=== PATIENT | female | born 1940 | race Caucasian/White ===

== ENCOUNTER → 2016-12-28 | Outpatient (CLI) | payer MEDICARE ==
[~2016-12-28] MED LIST: ALEN70TA39 PO; ATOR10 PO; ATRO17AE INH; CALC750T PO; CARV25TA PO; DIGO0.12 PO; DILT180C PO; ENOX40P SQ; FISH500C PO; FOLI1 PO; FURO1TAB93 PO; GLIP10TA6 PO; HYDR10SO PO; LISI2.5T3 PO; MAGN400T20 PO; MELA10TA PO; METF-324 PO; METH2.5 PO; MULT1TAB PO; OXYC1SOL5 PO; SPIR25TA PO; VITA-83 PO; VITA10004 PO; VITA400C28 PO; WARF5TAB PO; Z.0.OXYGEN INH; Z.0.WALKERFRONT; [UNRECOGNIZED DRUG - CODE] PO
[2016-12-28 14:12] LABS: BLOOD GAS BASE EXCESS -1.8 mmol/L (-2-2); BLOOD GAS CARBOXYHEMOGLOBIN 1.7 % (0-4); BLOOD GAS HCO3 22 mmol/L (22-26); BLOOD GAS O2 HGB SATURATION 94 % (90-100); BLOOD GAS PCO2 38 mmHg (38-42); BLOOD GAS PO2 86 mmHg (61-120); BLOOD GAS TOTAL HGB 12.8 G/DL (12.0-16.0); TEMP CORR TO 98.6
[2016-12-28 14:13] LABS: CRITICAL VALUE NO; DRAW SITE RT RADIAL; FIO2 21 %; NUMBER OF ARTERIAL PUNCTURES 1; STAT NO; ULNAR PULSE PRESENT
--- NOTE | 2016-12-31 10:16 | RSPPFT ---
DATE OF PROCEDURE: 12/28/16 COMMENTS: Spirometry shows FVC of 1.6 at 65% of predicted, FEV1 of 1.2 at 71%, FEV1/FVC ratio is normal. Flow is decreased at FEF 25, FEF 50, FEF 75 and FEF 25-75. There is no response after bronchodilator treatment. Lung volumes show residual volume is increased. TLC is normal. Diffusion capacity is mildly decreased. Flow volume loop indicates an obstructive pattern. Room air arterial blood gases show pH of 7.39, PCO2 of 38, PO2 of 86, BiCarb of 22, O2 Saturation at 94%. IMPRESSION: 1. Mild small airways obstructive lung disease. 2. No response after bronchodilator treatment. 3. Lung volumes show mild hyperinflation. 4. Mild decrease in diffusion capacity. 5. Room air arterial blood gases show normal oxygenation.
== END ==
LOC: HRSP 12:38
PROVIDERS: ATTEND Specialist
DX: J44.9 Chronic obstructive pulmonary disease, unspecified (principal)
CPT/HCPCS: 36600; 82805; 94060; 94726; 94729

== ENCOUNTER 2017-11-01 08:00 | Emergency (ER) | payer MEDICARE ==
[~2017-11-01] VITALS: Ht 160 cm; Wt 105.0 kg
[2017-11-01 08:10] VITALS: BP 161/90; PULSE 102; RESP 18; TEMP 97.9; O2SAT 96
[2017-11-01] MEDS ORDERED: DILT120T PO (08:14)
[2017-11-01] MEDS ORDERED: WARF-23 PO (08:14)
[2017-11-01] MEDS ORDERED: MAGN400T2 PO (08:14)
[2017-11-01] MEDS ORDERED: CARV25TA PO (08:14)
[2017-11-01] MEDS ORDERED: DIGO0.12 PO (08:14)
[2017-11-01] MEDS ORDERED: METF-382 PO (08:14)
[2017-11-01] MEDS ORDERED: GLIP10TA6 PO (08:14)
[2017-11-01] MEDS ORDERED: SPIR25TA PO (08:14)
--- NOTE | 2017-11-01 08:36 | PD ---
HPI Chief Complaint: Pain: Acute or Chronic Time Seen by Provider: 08:06 Travel History International Travel<30 days: No Contact w/Intl Traveler<30days: No Traveled to known affect area: No History of Present Illness HPI 77-year-old woman presents emergent from complaining of left knee pain. No injuries. States history of significant chronic bilateral lower extremity edema. She is on 2 diuretics. She states despite that she's had chronic edema , and she's had worsening pain and swelling in the left knee, and has developed a walking on it. No fevers. No recent falls or other injuries. Normally walks with a walker chronically. History Past Medical History Narrative Medical Hypertension A. fib Chronic bilateral lower extremity edema Dilation and Curettage (D&C): Yes Social History Alcohol Use: No Tobacco Use: No Allergies-Medications (Allergen,Severity, Reaction): Coded Allergies: latex (Unverified Allergy, Intermediate, RASH, 11/01/17) PT STATES THAT SHE IS ALLERGIC TO THE LATEX IN [place] AND TAPE adhesive (Unverified Adverse Reaction, Intermediate, RASH, REDNESS, ) PATIENT STATES SHE CAN HAVE PAPER TAPE WITHOUT PROBLEMS milk (Unverified Adverse Reaction, Intermediate, DIARRHEA, GAS, 11/01/17) Reported Meds & Prescriptions Reported Meds & Active Scripts Active Reported Glipizide 10 Mg Tab 15 Mg PO DAILY Take 30 minutes before a meal Warfarin 5 Mg Tab 5 Mg PO DAILY Spironolactone 25 Mg Tab 25 Mg PO DAILY Carvedilol 25 Mg Tab 25 Mg PO BID Digoxin 0.125 Mg Tab 0.125 Mg PO DAILY Metformin ER (Metformin HCl) 1,000 Mg Katy 1,000 Mg PO DAILY With evening meal Magnesium Oxide 400 Mg Tab 400 Mg PO DAILY Diltiazem (Diltiazem HCl) 120 Mg Tab 180 Mg PO BID Review of Systems Except as stated in HPI: all other systems reviewed are Neg Physical Exam Narrative GENERAL: Well appearing 72 yo woman, NAD. SKIN: Decreased skin turgor. CARDIOVASCULAR: Heart rates a little bit irregular. RESPIRATORY: No accessory muscle use. Clear to auscultation. Breath sounds equal bilaterally. GASTROINTESTINAL: Abdomen soft, non-tender, nondistended. Hepatic and splenic margins not palpable. MUSCULOSKELETAL: No obvious deformities. Significant symmetric chronic appearing edema in both lower extremities. Palpable pulses. Left knee is without any erythema or significant warmth. There is some tenderness behind the knee. She has pain with significant range of motion but is able to range the knee still. There is no micromotion tenderness or other evidence of significant intra-articular inflammation or septic arthritis. NEUROLOGICAL: Awake and alert. No obvious cranial nerve deficits. Motor grossly within normal limits. Normal speech. PSYCHIATRIC: Appropriate mood and affect; insight and judgment normal. Data Data Last Documented VS Vital Signs Date Time Temp Pulse Resp B/P (MAP) Pulse Ox O2 Delivery O2 Flow Rate FiO2 11/01/17 08:10 97.9 102 18 161/90 (113) 96 Room Air Orders Orders Complete Blood Count With Diff (11/01/17 08:16) Comprehensive Metabolic Panel (11/01/17 08:16) B-Type Natriuretic Peptide (11/01/17 08:16) Westergren Sedimentation Rate (11/01/17 08:16) C-Reactive Protein (Crp) (11/01/17 08:16) Iv Access Insert/Monitor (11/01/17 08:16) Us Leg Venous Doppler Bilat (11/01/17 ) MDM Medical Decision Making Medical Screen Exam Complete: Yes Emergency Medical Condition: Yes Differential Diagnosis Chronic edema, bakers cyst, dvt, infection, Narrative Course Medical decision making INITIAL: 37-year-old with chronic edema, worsening nontraumatic left knee pain. This some swelling there. She is tender really behind the knee. I think she probably has a Peoples cyst. I don't think she has a DVT. She appears to have lymphedema. She's had 2 doses of diuretic but appears to be somewhat dehydrated. Recommend compression stockings and elevation. Dk Dawson MD Nov 01, 2017 08:36
[2017-11-01 08:40] LABS: AUTOMATED NEUTROPHIL # 5.7 TH/MM3 (1.8-7.7); BASOPHIL % 0.1 % (0.0-2.0); EOSINOPHIL # 0.2 TH/MM3 (0-0.4); EOSINOPHIL % 3.2 % (0.0-4.0); HEMATOCRIT 37.5 % (35.0-46.0); HEMO FLAGS DIFF FINAL; LYMPH % 12.2 % (9.0-44.0); LYMPHOCYTE # 0.9 TH/MM3 (1.0-4.8); MEAN CELL VOLUME 97.6 FL (80.0-100.0); MEAN CORPUSCULAR HEMOGLOBIN 33.8 PG (27.0-34.0); MEAN CORPUSCULAR HGB CONC 34.7 % (32.0-36.0); MONO % 10.8 % (0.0-8.0); NEUT % 73.7 % (16.0-70.0); PLATELET COUNT 175 TH/MM3 (150-450); RED BLOOD COUNT 3.84 MIL/MM3 (4.00-5.30); RED CELL DISTRIBUTION WIDTH 14.1 % (11.6-17.2); WHITE BLOOD COUNT 7.7 TH/MM3 (4.0-11.0)
[2017-11-01 08:45] LABS: ANION GAP 8 MEQ/L (5-15); AST (GOT) 47 U/L (15-37); BICARBONATE 28.5 MEQ/L (21.0-32.0); BLOOD UREA NITROGEN 22 MG/DL (7-18); CHLORIDE 96 MEQ/L (98-107); GLOMERULAR FILTRATION RATE 41 ML/MIN (>89); POTASSIUM 4.2 MEQ/L (3.5-5.1); SODIUM (NA) 132 MEQ/L (136-145)
[2017-11-01 08:46] LABS: ALT (GPT) 43 U/L (10-53)
[2017-11-01 08:49] LABS: ALKALINE PHOSPHATASE 152 U/L (45-117); TOTAL BILIRUBIN ADULT 0.8 MG/DL (0.2-1.0)
--- NOTE | 2017-11-01 09:16 | RADRPT ---
EXAM DATE/TIME: 11/01/2017 08:50 [facility] COMPARISON: No previous studies available for comparison. INDICATIONS : Bilateral leg swelling. Left leg pain. MEDICAL HISTORY : Diabetes mellitus type 2. Rheumatoid arthritis. Colitis. Renal insufficiency. Diverticulitis. Nadya b.Hypertension. SURGICAL HISTORY : Bilateral cataract. Cholecystectomy. D&C. Left wrist surgery. ENCOUNTER: Initial ACUITY: 1 day PAIN SCORE: 7/10 LOCATION: Bilateral leg. TECHNIQUE: Venous ultrasound of the left and right leg was performed from the inguinal ligament to the proximal calf. Real-time, color Doppler and spectral tracing, compression and augmentation techniques were us ed. FINDINGS: RIGHT LEG: There is normal compressibility of the deep venous system from the inguinal region to the proximal ca lf. No echogenic clot is seen in the lumen of the common femoral, femoral, popliteal, and posterior tibial veins. There is a normal response of the venous system to proximal and distal augmentation an d respiration. LEFT LEG: There is normal compressibility of the deep venous system from the inguinal region to the proximal ca lf. No echogenic clot is seen in the lumen of the common femoral, femoral, popliteal, and posterior tibial veins. There is a normal response of the venous system to proximal and distal augmentation an d respiration. CONCLUSION: No DVT is identified within either lower extremity. Naun Reardon MD on November 01, 2017 at 9:14 Board Certified Radiologist. This report was verified electronically.
[2017-11-01] MEDS ORDERED: LIDOCAINE HCL 1% 50 ML VIAL INFIL ONE (10:00)
--- NOTE | 2017-11-01 11:09 | RADRPT ---
EXAM DATE/TIME: 11/01/2017 10:30 [facility] COMPARISON: No previous studies available for comparison. INDICATIONS : Left knee pain and swelling. MEDICAL HISTORY : Hypertension. Diabetes mellitus type II. Chronic obstructive pulmonary disease. CHF. SURGICAL HISTORY : None. ENCOUNTER: Initial ACUITY: 1 week PAIN SCORE: 8/10 LOCATION: Left patellar apex. FINDINGS: Four view examination of the left knee demonstrates no evidence of fracture or dislocation. Bony min eralization is normal. Mild tricompartmental degenerative osteoarthritis. Mild chondrocalcinosis. Pro bable small suprapatellar joint effusion. CONCLUSION: 1. Mild tricompartmental degenerative osteoarthritis. 2. Mild chondrocalcinosis. 3. Probable small suprapatellar joint effusion. Melvin Snow MD on November 01, 2017 at 11:06 Board Certified Radiologist. This report was verified electronically.
[2017-11-01 11:16] VITALS: BP 136/70; PULSE 78; RESP 18; O2SAT 95
[2017-11-01] MEDS ORDERED: ACETAMINOPHEN 500 MG CPLT PO ONE (12:00)
[2017-11-01 14:07] VITALS: BP 140/63; PULSE 76; RESP 18; O2SAT 98
--- NOTE | 2017-11-01 14:55 | PD ---
Data Data Last Documented VS Vital Signs Date Time Temp Pulse Resp B/P (MAP) Pulse Ox O2 Delivery O2 Flow Rate FiO2 11/01/17 14:07 76 18 140/63 (88) 98 Room Air 11/01/17 08:10 97.9 Orders Orders Complete Blood Count With Diff (11/01/17 08:16) Comprehensive Metabolic Panel (11/01/17 08:16) B-Type Natriuretic Peptide (11/01/17 08:16) Westergren Sedimentation Rate (11/01/17 08:16) C-Reactive Protein (Crp) (11/01/17 08:16) Iv Access Insert/Monitor (11/01/17 08:16) Us Leg Venous Doppler Bilat (11/01/17 ) Knee, Complete (4vws) (11/01/17 ) Lidocaine 1% Inj (50 Ml) (Xylocaine 1% I (11/01/17 10:00) Consult Pt Eval & Treat (11/01/17 11:44) Acetaminophen (Tylenol) (11/01/17 12:00) Diet Regular Basic (11/01/17 Lunch) Ed Discharge Order (11/01/17 11:56) (Hub Use Only)Inp Phy Cons/Ref (11/01/17 ) Labs Laboratory Tests Test 11/01/17 08:21 White Blood Count 7.7 TH/MM3 Red Blood Count 3.84 MIL/MM3 Hemoglobin 13.0 GM/DL Hematocrit 37.5 % Mean Corpuscular Volume 97.6 FL Mean Corpuscular Hemoglobin 33.8 PG Mean Corpuscular Hemoglobin Concent 34.7 % Red Cell Distribution Width 14.1 % Platelet Count 175 TH/MM3 Mean Platelet Volume 9.6 FL Neutrophils (%) (Auto) 73.7 % Lymphocytes (%) (Auto) 12.2 % Monocytes (%) (Auto) 10.8 % Eosinophils (%) (Auto) 3.2 % Basophils (%) (Auto) 0.1 % Neutrophils # (Auto) 5.7 TH/MM3 Lymphocytes # (Auto) 0.9 TH/MM3 Monocytes # (Auto) 0.8 TH/MM3 Eosinophils # (Auto) 0.2 TH/MM3 Basophils # (Auto) 0.0 TH/MM3 CBC Comment DIFF FINAL Differential Comment Erythrocyte Sedimentation Rate 38 mm/hr Blood Urea Nitrogen 22 MG/DL Creatinine 1.27 MG/DL Random Glucose 212 MG/DL Total Protein 8.5 GM/DL Albumin 3.7 GM/DL Calcium Level 9.2 MG/DL Alkaline Phosphatase 152 U/L Aspartate Amino Transf (AST/SGOT) 47 U/L Alanine Aminotransferase (ALT/SGPT) 43 U/L Total Bilirubin 0.8 MG/DL Sodium Level 132 MEQ/L Potassium Level 4.2 MEQ/L Chloride Level 96 MEQ/L Carbon Dioxide Level 28.5 MEQ/L Anion Gap 8 MEQ/L Estimat Glomerular Filtration Rate 41 ML/MIN C-Reactive Protein 1.50 MG/DL B-Type Natriuretic Peptide 120 PG/ML MDM Supervised Visit with [facility]: No Diagnosis Primary Impression: Prepatellar bursitis Additional Instruction: Continue physical therapy. Hold diuretics as is is likely worsening renal function. Follow-up with your primary doctor in 2-4 days. Disposition: 01 DISCHARGE HOME Condition: Stable Dk Dawson MD Nov 01, 2017 14:55
== END 2017-11-01 16:01 | disposition home or self-care (01) ==
LOC: NEPE 08:00
DX: M17.12 Unilateral primary osteoarthritis, left knee (principal); M11.262 Other chondrocalcinosis, left knee; I89.0 Lymphedema, not elsewhere classified; M79.89 Other specified soft tissue disorders; I10 Essential (primary) hypertension; I48.91 Unspecified atrial fibrillation; M06.9 Rheumatoid arthritis, unspecified; N28.9 Disorder of kidney and ureter, unspecified; Z87.19 Personal history of other diseases of the digestive system
CPT/HCPCS: 73564; 80053; 83880; 85025; 85652; 86140; 93970; 99285

== ENCOUNTER → 2018-03-13 | Outpatient (CLI) | payer MEDICARE ==
[~2018-03-13] MED LIST changes: -ALEN70TA39 PO; -ATOR10 PO; -ATRO17AE INH; -CALC750T PO; +DILT120T PO; -DILT180C PO; -ENOX40P SQ; -FISH500C PO; -FOLI1 PO; -FURO1TAB93 PO; +FURO40TA PO; -HYDR10SO PO; +IPRA17I INH; -LISI2.5T3 PO; +MAGN400T2 PO; -MAGN400T20 PO; -MELA10TA PO; -METF-324 PO; +METF-382 PO; -METH2.5 PO; -MULT1TAB PO; -OXYC1SOL5 PO; +VENTAER INH; -VITA-83 PO; -VITA10004 PO; -VITA400C28 PO; +WARF-23 PO; -WARF5TAB PO; -Z.0.OXYGEN INH; -Z.0.WALKERFRONT; -[UNRECOGNIZED DRUG - CODE] PO
--- NOTE | 2018-03-19 10:38 | RSPPFT ---
DATE OF PROCEDURE: 03/13/18 COMMENTS: Spirometry with FVC of 1.7, FEV1 of 1.2, FEV1/FVC ratio at 73%. TLC is 73% of predicted. Diffusion capacity is 44%. IMPRESSION: 1. Moderately severe airways obstruction. 2. Non-significant response to inhaled bronchodilator. 3. Mild airways restriction. 4. Severe reduction in diffusion capacity.
== END ==
LOC: HRSP 12:09
PROVIDERS: ATTEND Internal Medicine Sleep Medicine
DX: R06.89 Other abnormalities of breathing (principal)
CPT/HCPCS: 94060; 94726; 94729

== ENCOUNTER 2018-03-16 17:35 | Inpatient (IN) | payer MEDICARE ==
[~2018-03-16] VITALS: Ht 160 cm; Wt 105.0 kg
[~2018-03-16 17:35] MED LIST changes: -FURO40TA PO; -IPRA17I INH; -VENTAER INH
[2018-03-16 17:46] VITALS: BP 122/57; PULSE 48; RESP 18; TEMP 97.8; O2SAT 95
[2018-03-16] MEDS ORDERED: FURO40TA PO (17:51)
[2018-03-16] MEDS ORDERED: VENTAER INH (17:51)
[2018-03-16] MEDS ORDERED: IPRA17I INH (17:51)
[2018-03-16] MEDS ORDERED: SODIUM CHLORIDE 0.9% FLUSH 10 ML FLUSH IVF PRN (18:30)
--- NOTE | 2018-03-16 18:40 | RADRPT ---
EXAM DATE/TIME: 03/16/2018 18:27 [facility] COMPARISON: CHEST PA & LAT, May 16, 2015, 11:58. INDICATIONS : Chest pain MEDICAL HISTORY : Diabetes mellitus type II. SURGICAL HISTORY : None. ENCOUNTER: Initial ACUITY: 1 day PAIN SCORE: 0/10 LOCATION: chest FINDINGS: Portable AP view of the chest demonstrates cardiac silhouette size is at the upper limits for normal. EKG lines overlie the patient. No airspace consolidation or pneumothorax is identified. Questionable slight blunting of the right costophrenic sulcus. Bones and soft tissues demonstrate no acute findin g. CONCLUSION: Questionable blunting of the right costophrenic sulcus could indicate trace right pleural fluid. Othe rwise, no acute finding is identified. Naun Reardon MD on March 16, 2018 at 18:36 Board Certified Radiologist. This report was verified electronically.
[2018-03-16 18:54] LABS: AUTOMATED NEUTROPHIL # 7.4 TH/MM3 (1.8-7.7); BASOPHIL % 0.3 % (0.0-2.0); EOSINOPHIL # 0.2 TH/MM3 (0-0.4); EOSINOPHIL % 1.8 % (0.0-4.0); HEMATOCRIT 21.8 % (35.0-46.0); HEMOGLOBIN 7.1 GM/DL (11.6-15.3); LYMPH % 7.4 % (9.0-44.0); LYMPHOCYTE # 0.7 TH/MM3 (1.0-4.8); MEAN CORPUSCULAR HEMOGLOBIN 30.3 PG (27.0-34.0); MEAN CORPUSCULAR HGB CONC 32.6 % (32.0-36.0); MEAN PLATELET VOLUME 9.3 FL (7.0-11.0); MONO % 10.8 % (0.0-8.0); NEUT % 79.7 % (16.0-70.0); PLATELET COUNT 196 TH/MM3 (150-450); RED BLOOD COUNT 2.35 MIL/MM3 (4.00-5.30); RED CELL DISTRIBUTION WIDTH 15.4 % (11.6-17.2); WHITE BLOOD COUNT 9.3 TH/MM3 (4.0-11.0)
[2018-03-16 19:07] LABS: ALBUMIN 2.9 GM/DL (3.4-5.0); AST (GOT) 42 U/L (15-37); BICARBONATE 22.3 MEQ/L (21.0-32.0); BLOOD UREA NITROGEN 27 MG/DL (7-18); CALCIUM 8.2 MG/DL (8.5-10.1); CHLORIDE 98 MEQ/L (98-107); CREATININE 1.59 MG/DL (0.50-1.00); GLOMERULAR FILTRATION RATE 31 ML/MIN (>89); GLUCOSE,RANDOM 273 MG/DL (74-106); MAGNESIUM 2.5 MG/DL (1.5-2.5); SODIUM (NA) 131 MEQ/L (136-145)
[2018-03-16 19:08] LABS: ALT (GPT) 35 U/L (10-53)
[2018-03-16 19:12] LABS: ALKALINE PHOSPHATASE 175 U/L (45-117); TOTAL BILIRUBIN ADULT 0.5 MG/DL (0.2-1.0); TROPONIN I LESS THAN 0.02 NG/ML (0.02-0.05)
--- NOTE | 2018-03-16 19:19 | PD ---
HPI Chief Complaint: General Weakness Time Seen by Provider: 19:16 Travel History International Travel<30 days: No Contact w/Intl Traveler<30days: No Traveled to known affect area: No History of Present Illness HPI The patient is a 77 year old female who presents to the [facility] emergency department with a history of developing onset of shortness of breath, lightheaded sensation at 2 PM today. She reports that she felt dizzy. She denies having any vertigo symptoms. The patient incidentally also reports that today she had diarrhea 3 times. Yesterday and the day prior she noticed that her stool was black in color. She denies having any known prior history of GI bleed, however she is on Coumadin. She is on Coumadin related to a prior diagnosis of atrial fibrillation. She last had her INR checked a month ago. She reports that in the past she has received a blood transfusion several years ago, however she is unsure why. Her primary care physician is Dr. Xavier. She denies having any recent chest pain or chest pressure. She denies having any prior history of cardiac disease. On review of systems otherwise, she denies having any known recent fevers. She reports having a chronic cough related to postnasal drip. She denies having any worsening productivity to the cough or increased congestion. She denies having any neck pain, abdominal pain , vomiting, urinary symptoms, or other neurologic symptoms. The patient incidentally does report having worsening problems with acid reflux and heartburn. She reports that she has been taking Zantac without relief. [facility] Past Medical History Narrative Medical The patient's past medical history is significant for sleep apnea, atrial fibrillation chronically anticoagulated on Coumadin, hypertension, chronic bilateral lower extremity edema, COPD Atrial Fibrillation: Yes Cancer: No Cardiovascular Problems: Yes (A. FIB) Diabetes: Yes (TYPE II) Patient Takes Glucophage: Yes (03/16/2018 in am ) Endocrine: Yes Gastrointestinal Disorders: Yes (SOME FOODS CAUSE N/V, COLITIS ; HX DIVERTICULITIS) Genitourinary: No Hepatitis: No Hiatal Hernia: No Hypertension: Yes Immune Disorder: Yes (RHEUMATOID ARTHRITIS, COLITIS, PSORIASIS) Medical other: Yes (HX OF ANEMIA, PSORIASIS ; RHEUMATOID ARTHRITIS) Musculoskeletal: Yes (OSTEOARTHRITIS, RHEUMATOID ARTHRITIS, BACK PROBLEMS) Neurologic: No Psychiatric: Yes (CLAUSTROPHOBIC) Reproductive: No Respiratory: Yes (ASTHMA, SLEEP APNEA, USES OXYGEN AT NIGHT 2 L NC) Thyroid Disease: No Dilation and Curettage (D&C): Yes Past Surgical History Narrative Surgical The patient's past surgical history is significant for cholecystectomy, right knee surgery, left wrist ORIF, bilateral cataract surgery Abdominal Surgery: Yes (CHOLECYSTECTOMY) AICD: No Body Medical Devices: PLATE AND SCREWS LEFT WRIST Cardiac Surgery: No Endocrine Surgery: No Eye Surgery: Yes (TITUS CATRACT) Genitourinary Surgery: No Gynecologic Surgery: Yes (D & C) Joint Replacement: Yes (right knee) Neurologic Surgery: No Pacemaker: No Thoracic Surgery: No Other Surgery: Yes (THROAT TUMOR REMOVAL) Social History Alcohol Use: No Tobacco Use: No Substance Use: No Allergies-Medications (Allergen,Severity, Reaction): Coded Allergies: latex (Unverified Allergy, Intermediate, RASH, 03/16/18) PT STATES THAT SHE IS ALLERGIC TO THE LATEX IN [place] AND TAPE adhesive (Unverified Adverse Reaction, Intermediate, RASH, REDNESS, ) PATIENT STATES SHE CAN HAVE PAPER TAPE WITHOUT PROBLEMS milk (Unverified Adverse Reaction, Intermediate, DIARRHEA, GAS, 03/16/18) Reported Meds & Prescriptions Reported Meds & Active Scripts Active Reported Ventolin Hfa 18 GM Inh (Albuterol Sulfate) 90 Mcg/Act Aer 2 Puff INH Q4-6H PRN Atrovent HFA 12.9 GM Inh (Ipratropium [place]) 17 Mcg/Actuation Aer 2 Puff INH TID Furosemide 40 Mg Tab 40 Mg PO DAILY Glipizide 10 Mg Tab 15 Mg PO BID Take 30 minutes before a meal Warfarin 5 Mg Tab 5 Mg PO DAILY Spironolactone 25 Mg Tab 25 Mg PO BID Carvedilol 25 Mg Tab 25 Mg PO BID Metformin ER (Metformin HCl) 1,000 Mg Katy 1,000 Mg PO DAILY With evening meal Magnesium Oxide 400 Mg Tab 400 Mg PO DAILY Diltiazem (Diltiazem HCl) 120 Mg Tab 180 Mg PO BID Review of Systems Except as stated in HPI: all other systems reviewed are Neg General / Constitutional: No: Fever Eyes: No: Visual changes HENT: Positive: Lightheadedness, No: Headaches, Vertigo Cardiovascular: No: Chest Pain or Discomfort Respiratory: Positive: Cough, Shortness of Breath Gastrointestinal: Positive: Diarrhea, Abdominal Pain, Changes in Bowel Habits, Indigestion, No: Nausea, Vomiting, Hematemesis, Hematochezia, Constipation, Loss of Appetite Genitourinary: No: Dysuria Musculoskeletal: No: Pain Skin: No Rash Neurologic: Positive: Weakness, No: Focal Abnormalities, Change in Mentation, Slurred Speech, Sensory Disturbance Psychiatric: No: Depression Endocrine: No: Polydipsia Hematologic/Lymphatic: No: Easy Bruising Physical Exam Narrative General: The patient is a well-developed well-nourished female in no acute distress. Head and Neck exam: Head is normocephalic atraumatic. Eyes: EOMI, pupils are equal round and reactive to light. Nose: Midline septum with pink mucous membranes Mouth: Dentition unremarkable. Moist mucus membranes. Posterior oropharynx is not erythematous. No tonsillar hypertrophy. Uvula midline. Airway patent. Neck: No palpable lymphadenopathy. No nuchal rigidity. No thyromegaly. Cardiovascular: Bradycardic rhythm in the 40s-50 without murmurs, gallops, or rubs. No pulse deficit to the extremities on simultaneous auscultation and palpation of her radial artery. Lungs: Clear to auscultation bilaterally. No wheezes, rhonchi, or rales. Abdomen: Soft, with reported tenderness on palpation in the midepigastric area and left upper quadrant of the abdomen, no other tenderness on palpation of the other quadrants. No guarding, rebound, or rigidity. Normal bowel sounds are audible. No tenderness on palpation of McBurney's point. Negative Larose sign. Extremities: No clubbing or cyanosis. The patient has 1+ pitting edema bilateral lower extremities which she reports is improved compared to previous. 2+ pulses in all 4 extremities. No calf tenderness on palpation. Back: No costovertebral angle tenderness to palpation. Neurologic Exam: Grossly nonfocal Skin Exam: No rash noted. Intact skin that is warm and dry. Pale appearing on exam. RECTAL EXAM: No masses or tenderness, stool is dark brown in color. The patient 's stool is Hemoccult positive Data Data Last Documented VS Vital Signs Date Time Temp Pulse Resp B/P (MAP) Pulse Ox O2 Delivery O2 Flow Rate FiO2 03/16/18 18:35 100 Nasal Cannula 2.00 03/16/18 18:35 (78) 03/16/18 17:46 97.8 48 18 Orders Orders Ckmb (Isoenzyme) Profile (4/22/18 18:) Complete Blood Count With Diff (03/16/18) Comprehensive Metabolic Panel (03/16/18) Magnesium (Mg) (03/16/18) Troponin I (03/16/18) Chest, Single Ap (03/16/18:) Ecg Monitoring (03/16/18) Iv Access Insert/Monitor (03/16/18) Oximetry (03/16/18) Oxygen Administration (03/16/18) Sodium Chloride 0.9% Flush (Ns Flush) (03/16/18) Prothrombin Time / Inr (Pt) (03/16/18) Act Partial Throm Time (Ptt) (03/16/18) Type And Screen (03/16/18) Red Blood Cells (Rbc) (03/16/18) Blood Product Administration (03/16/18) Sodium Chlor 0.9% 250 Ml Inj (Ns 250 Ml (03/16/18 19:30) Pantoprazole Inj (Protonix Inj) (03/16/18 20:00) Pantoprazole Inj (Protonix Inj) (03/16/18 20:00) Ct Abd/Pel W/O Iv Contrast (03/16/18 20:04) Phytonadione Inj (Vitamin K Inj) (03/16/18 20:45) Admit Order (Ed Use Only) (03/16/18 20:42) Lipase (03/16/18 17:50) Labs Laboratory Tests Test 03/16/18 17:50 03/16/18 19:40 White Blood Count 9.3 TH/MM3 Red Blood Count 2.35 MIL/MM3 Hemoglobin 7.1 GM/DL Hematocrit 21.8 % Mean Corpuscular Volume 93.0 FL Mean Corpuscular Hemoglobin 30.3 PG Mean Corpuscular Hemoglobin Concent 32.6 % Red Cell Distribution Width 15.4 % Platelet Count 196 TH/MM3 Mean Platelet Volume 9.3 FL Neutrophils (%) (Auto) 79.7 % Lymphocytes (%) (Auto) 7.4 % Monocytes (%) (Auto) 10.8 % Eosinophils (%) (Auto) 1.8 % Basophils (%) (Auto) 0.3 % Neutrophils # (Auto) 7.4 TH/MM3 Lymphocytes # (Auto) 0.7 TH/MM3 Monocytes # (Auto) 1.0 TH/MM3 Eosinophils # (Auto) 0.2 TH/MM3 Basophils # (Auto) 0.0 TH/MM3 CBC Comment DIFF FINAL Differential Comment Blood Urea Nitrogen 27 MG/DL Creatinine 1.59 MG/DL Random Glucose 273 MG/DL Total Protein 7.0 GM/DL Albumin 2.9 GM/DL Calcium Level 8.2 MG/DL Magnesium Level 2.5 MG/DL Alkaline Phosphatase 175 U/L Aspartate Amino Transf (AST/SGOT) 42 U/L Alanine Aminotransferase (ALT/SGPT) 35 U/L Total Bilirubin 0.5 MG/DL Sodium Level 131 MEQ/L Potassium Level 5.3 MEQ/L Chloride Level 98 MEQ/L Carbon Dioxide Level 22.3 MEQ/L Anion Gap 11 MEQ/L Estimat Glomerular Filtration Rate 31 ML/MIN Total Creatine Kinase 35 U/L Troponin I LESS THAN 0.02 NG/ML Lipase 185 U/L Prothrombin Time 37.9 SEC Prothromb Time International Ratio 3.8 RATIO Activated Partial Thromboplast Time 41.9 SEC MDM Medical Decision Making Medical Screen Exam Complete: Yes Emergency Medical Condition: Yes Medical Record Reviewed: Yes Interpretation(s) Last Impressions Abdomen/Pelvis CT 03/16/182003 Signed Impressions: Service Date/Time: Friday, March 16, 2018 20:17 - CONCLUSION: 1. There is abnormal inflammation surrounding the duodenum, pancreatic head, and extending into the small bowel mesentery. The first and second portion of the duodenum appear thickened. Therefore, findings favor a duodenitis as the etiology. Less likely, pancreatitis could have a similar appearance. The small adjacent lymph nodes are atypical for an inflammatory or infectious process. Therefore, recommend followup with contrast-enhanced examination to ensure resolution these findings since malignancy cannot definitely be excluded at this time. 2. There is a fluid density mass abutting the tail of the pancreas measuring 3.9 cm. This may represent a pancreatic cystic lesion and should be further characterize with pancreas protocol CT or MRI once patient condition permits. 3. Airspace consolidation in the right lower lobe with small right pleural effusion. This could represent an infectious process. 4. Liver changes suggestive of cirrhosis. There is an indeterminate 2.4 cm right lobe liver lesion that does not meet criteria for a cyst. Attention should be paid to this on followup imaging as well to have additional characterization. Naun Reardon MD Chest X-Ray 03/16/18 1823 Signed Impressions: Service Date/Time: Friday, March 16, 2018 18:27 - CONCLUSION: Questionable blunting of the right costophrenic sulcus could indicate trace right pleural fluid. Otherwise, no acute finding is identified. Naun Reardon MD Differential Diagnosis GI bleed from diverticulosis, versus peptic ulcer disease, versus AVM malformation, versus hemorrhagic esophagitis, versus gastritis, versus weakness related to cardiac arrhythmia Narrative Course During the course of the patient's emergency department visit, the patient's history, examination, and differential diagnosis were reviewed with the patient. The patient was placed on a surveillance system monitor with oximetry and frequent blood pressure monitoring. The patient had IV access obtained and blood work sent for analysis. The patient had a EKG done on arrival. The patient's EKG reveals a sinus bradycardia heart rate of 45, marked left axis deviation, no acute ST segment elevation, T waves are inverted in V1, lead III. The patient was initially provided Protonix 80 mg IV followed by a Protonix drip. The patient was typed and screened for blood administration. The patient's laboratory studies were reviewed and remarkable for a white count of 9.3, hemoglobin 7.1, platelets 196 with 79.7 neutrophils, lymphocytes 7.4, monocytes 10.8. CMP is remarkable for sodium of 131, potassium 5.3, BUN 27, creatinine 1.59, glucose 273, AST 42, alk phos 175, cardiac enzymes within normal limits, lipase 185. PT 37.9, INR 3.8, PTT 41.9 Radiology studies were reviewed and remarkable for a chest x-ray that shows questionable blunting of the right costophrenic sulcus which could represent trace right pleural fluid, otherwise unremarkable. CT scan of the abdomen and pelvis shows abnormal inflammation around the duodenum, pancreatic head, extending into the small bowel mesentery. The first and second portion of the duodenum appears thickened. Therefore findings favor a duodenitis as etiology. The patient's case [facility] He discussed the case with the gunner's mate m. The gunner's mate m recommended that the patient be given fresh frozen plasma to reverse the INR. This was administered. The plan is to proceed with endoscopy in the morning. The patient's results were discussed with the patient, including the plan of care. I explained that further testing and/ or monitoring is indicated based on the patient's history, examination, and/ or laboratory findings. Therefore, I recommended admission for additional evaluation. The patient expressed understanding and was agreeable with this plan. The patient was admitted to the hospital in stable condition and sent to a bed under the care of the [facility] service. [facility] Point of Care Internal Pos. & Neg. Controls: Passed Fecal Specimen Occult Blood: Positive Physician Communication Physician Communication The patient's case including history, pertinent physical examination findings, and laboratory studies were discussed with . It was agreed that the [facility] Diagnosis Primary Impression: GI (gastrointestinal bleed) Qualified Codes: K92.2 - Gastrointestinal hemorrhage, unspecified Additional Impressions: Elevated INR Bradycardia Admitting Information Admitting Physician Requests: Admit Nicole Sewell MD Mar 16, 2018 19:19
[2018-03-16] MEDS ORDERED: SODIUM CHLOR 0.9% 250 ML INJ 250 ML IV ONE (19:30)
[2018-03-16] MEDS ORDERED: PANTOPRAZOLE INJ 80 MG in SODIUM CHLORIDE 0.9% INJ 35 ML IV ONE (20:00)
[2018-03-16 20:06] LABS: INTERNATIONAL NORMALIZED RATIO 3.8 RATIO; PROTHROMBIN TIME - PATIENT 37.9 SEC (9.8-11.6)
--- NOTE | 2018-03-16 20:43 | RADRPT ---
EXAM DATE/TIME: 03/16/2018 20:17 [place] COMPARISON: No previous studies available for comparison. INDICATIONS : Diffuse abdomen pain today. ORAL CONTRAST: No oral contrast ingested. RADIATION DOSE: 22.65 CTDIvol (mGy) ; Patient body habitus MEDICAL HISTORY : Diverticulitis. SURGICAL HISTORY : None. ENCOUNTER: Initial ACUITY: 1 day PAIN SCALE: 6/10 LOCATION: Bilateral abdomen TECHNIQUE: Volumetric scanning of the abdomen and pelvis was performed. Using automated exposure control and ad justment of the mA and/or kV according to patient size, radiation dose was kept as low as reasonably achievable to obtain optimal diagnostic quality images. DICOM format image data is available electro nically for review and comparison. FINDINGS: LOWER LUNGS: There is small right pleural effusion. Atelectasis and consolidation is present in the right lower lo be. There is low density the cardiac blood pool suggesting anemia. LIVER: The liver demonstrates normal density but an abnormal lobulated contour suggesting cirrhosis. There i s a low-density lesion in the right posterior liver measuring 2.4 cm and has Hounsfield measurements in the mid 20s. There is no dilation of the biliary tree. Gallbladder is not visualized. SPLEEN: Normal size without lesion. PANCREAS: There is a fluid density mass abutting the tail of the pancreas measuring 3.9 cm. There is no pancrea tic ductal dilatation. Inflammatory changes are adjacent to the pancreatic head, duodenum, and adjace nt mesentery. KIDNEYS: Normal in size and shape. There is no mass, stone, or hydronephrosis. ADRENAL GLANDS: Within normal limits. VASCULAR: There is no aortic aneurysm. There is severe atherosclerotic disease with ectatic aorta. BOWEL/MESENTERY: The stomach demonstrates no abnormality. The first and second portion the duodenum as well as the pro ximal third portion demonstrate wall thickening and surrounding inflammation. These findings are most severe involving the duodenal bulb. The inflammatory changes are also adjacent to the pancreatic hea d extending to the small bowel mesentery. A few small adjacent lymph nodes are present. There is no free intraperitoneal air or fluid. There is sigmoid diverticulosis. ABDOMINAL WALL: There is an umbilical hernia. RETROPERITONEUM: There is no lymphadenopathy. BLADDER: No wall thickening or mass. REPRODUCTIVE: No acute abnormality. INGUINAL: There is no lymphadenopathy or hernia. MUSCULOSKELETAL: There is degenerative changes of the lumbar spine with multiple vertebral body compression deformitie s, most severe at T12. CONCLUSION: 1. There is abnormal inflammation surrounding the duodenum, pancreatic head, and extending into the s mall bowel mesentery. The first and second portion of the duodenum appear thickened. Therefore, findi ngs favor a duodenitis as the etiology. Less likely, pancreatitis could have a similar appearance. Th e small adjacent lymph nodes are atypical for an inflammatory or infectious process. Therefore, recom mend followup with contrast-enhanced examination to ensure resolution these findings since malignancy cannot definitely be excluded at this time. 2. There is a fluid density mass abutting the tail of the pancreas measuring 3.9 cm. This may represe nt a pancreatic cystic lesion and should be further characterize with pancreas protocol CT or MRI onc e patient condition permits. 3. Airspace consolidation in the right lower lobe with small right pleural effusion. This could repre sent an infectious process. 4. Liver changes suggestive of cirrhosis. There is an indeterminate 2.4 cm right lobe liver lesion th at does not meet criteria for a cyst. Attention should be paid to this on followup imaging as well to have additional characterization. Naun Reardon MD on March 16, 2018 at 20:31 Board Certified Radiologist. This report was verified electronically.
[2018-03-16] MEDS ORDERED: PHYTONADIONE INJ 10 MG in SODIUM CHLORIDE 0.9% INJ 50 ML IV ONE (20:45)
[2018-03-16] MEDS: PANTOPRAZOLE INJ 80 MG in SODIUM CHLORIDE 0.9% INJ 100 ML IV SCH (21:20)
[2018-03-16] MEDS ORDERED: ALBUTEROL SULFATE 90 MCG/ACT HFA 8 GM INHALER INH PRN (22:30)
--- NOTE | 2018-03-16 22:40 | HHI.HP ---
HPI Service [facility] Hospitalists Primary Care Physician Ham Xavier, DO Admission Diagnosis GI Bleed, anticoagulated on coumadin Chief Complaint: 2 days blood per rectum and SOB Travel History International Travel<30 Days: No Contact w/Intl Traveler <30 Da: No Traveled to Known Affected Are: No History of Present Illness The patient is a 77 year old female who presents to the [facility] emergency department with a history of developing onset of shortness of breath, lightheaded sensation at 2 PM today. She reports that she felt dizzy. She denies having any vertigo symptoms. The patient incidentally also reports that today she had diarrhea 3 times. Yesterday and the day prior she noticed that her stool was black in color. She denies having any known prior history of GI bleed, however she is on Coumadin. She is on Coumadin related to a prior diagnosis of atrial fibrillation. She last had her INR checked a month ago. She reports that in the past she has received a blood transfusion several years ago, however she is unsure why. Her primary care physician is Dr. Xavier. She denies having any recent chest pain or chest pressure. She denies having any prior history of cardiac disease. On review of systems otherwise, she denies having any known recent fevers. She reports having a chronic cough related to postnasal drip. Patient is on chronic oxygen 2 liters for COPD. She denies having any worsening productivity to the cough or increased congestion. She denies having any neck pain, abdominal pain, vomiting, urinary symptoms, or other neurologic symptoms. The patient incidentally does report having worsening problems with acid reflux and heartburn. She reports that she has been taking Zantac without any help in ER found to be anemic 7.1 with positive stools will admit with GI bleed also inr 3.8 will give FFP consult GI as well and get CT scan. Review of Systems Constitutional: COMPLAINS OF: Fatigue Respiratory: COMPLAINS OF: Shortness of breath Gastrointestinal: COMPLAINS OF: Black stools, BRB per rectum Past Family Social History Past Medical History COPD,dm,sleep apnea,afib on coumadin hypertension,chronic lower extremity edema hx colitis diverticulitis Rh A,chronic oxygen 2 liters anemia Past Surgical History gallbladder,rt knee, left wrist,cataract Reported Medications Ventolin Hfa 18 GM Inh (Albuterol Sulfate) 90 Mcg/Act Aer 2 Puff INH Q4-6H PRN Atrovent HFA 12.9 GM Inh (Ipratropium Rubicon) 17 Mcg/Actuation Aer 2 Puff INH TID Furosemide 40 Mg Tab 40 Mg PO DAILY Glipizide 10 Mg Tab 15 Mg PO BID Take 30 minutes before a meal Warfarin 5 Mg Tab 5 Mg PO DAILY Spironolactone 25 Mg Tab 25 Mg PO BID Carvedilol 25 Mg Tab 25 Mg PO BID Metformin ER (Metformin HCl) 1,000 Mg Katy 1,000 Mg PO DAILY With evening meal Magnesium Oxide 400 Mg Tab 400 Mg PO DAILY Diltiazem (Diltiazem HCl) 120 Mg Tab 180 Mg PO BID Allergies: Coded Allergies: latex (Unverified Allergy, Intermediate, RASH, 03/16/18) PT STATES THAT SHE IS ALLERGIC TO THE LATEX IN [place] AND TAPE adhesive (Unverified Adverse Reaction, Intermediate, RASH, REDNESS, ) PATIENT STATES SHE CAN HAVE PAPER TAPE WITHOUT PROBLEMS milk (Unverified Adverse Reaction, Intermediate, DIARRHEA, GAS, 03/16/18) Social History current NS,ND Physical Exam Vital Signs Vital Signs Date Time Temp Pulse Resp B/P (MAP) Pulse Ox O2 Delivery O2 Flow Rate FiO2 03/16/18 18:35 100 Nasal Cannula 2.00 03/16/18 18:35 (78) Nasal Cannula 2.00 03/16/18 17:46 97.8 48 18 122/57 (78) 95 Room Air Physical Exam GENERAL: This is a well-nourished, well-developed patient, in no apparent distress. SKIN: No rashes, ecchymoses or lesions. Cool and dry. HEAD: Atraumatic. Normocephalic. No temporal or scalp tenderness. EYES: Pupils equal round and reactive. Extraocular motions intact. No scleral icterus. No injection or drainage. ENT: Nose without bleeding, purulent drainage or septal hematoma. Throat without erythema, tonsillar hypertrophy or exudate. Uvula midline. Airway patent. NECK: Trachea midline. No JVD or lymphadenopathy. Supple, nontender, no meningeal signs. CARDIOVASCULAR: Regular rate and bradycardic RESPIRATORY: Decrease breath sounds GASTROINTESTINAL: Abdomen soft, mild-tender, nondistended. No hepato- splenomegaly, or palpable masses. No guarding. guiac positive stool MUSCULOSKELETAL: Extremities without clubbing, cyanosis, 2 plus edema. No joint tenderness, effusion, or edema noted. No calf tenderness. Negative Homans sign bilaterally. NEUROLOGICAL: Awake and alert. Cranial nerves II through XII intact. Motor and sensory grossly within normal limits. Five out of 5 muscle strength in all muscle groups. Normal speech. Laboratory Laboratory Tests Test 03/16/18 17:50 03/16/18 19:40 White Blood Count 9.3 Red Blood Count 2.35 Hemoglobin 7.1 Hematocrit 21.8 Mean Corpuscular Volume 93.0 Mean Corpuscular Hemoglobin 30.3 Mean Corpuscular Hemoglobin Concent 32.6 Red Cell Distribution Width 15.4 Platelet Count 196 Mean Platelet Volume 9.3 Neutrophils (%) (Auto) 79.7 Lymphocytes (%) (Auto) 7.4 Monocytes (%) (Auto) 10.8 Eosinophils (%) (Auto) 1.8 Basophils (%) (Auto) 0.3 Neutrophils # (Auto) 7.4 Lymphocytes # (Auto) 0.7 Monocytes # (Auto) 1.0 Eosinophils # (Auto) 0.2 Basophils # (Auto) 0.0 CBC Comment DIFF FINAL Differential Comment Blood Urea Nitrogen 27 Creatinine 1.59 Random Glucose 273 Total Protein 7.0 Albumin 2.9 Calcium Level 8.2 Magnesium Level 2.5 Alkaline Phosphatase 175 Aspartate Amino Transf (AST/SGOT) 42 Alanine Aminotransferase (ALT/SGPT) 35 Total Bilirubin 0.5 Sodium Level 131 Potassium Level 5.3 Chloride Level 98 Carbon Dioxide Level 22.3 Anion Gap 11 Estimat Glomerular Filtration Rate 31 Total Creatine Kinase 35 Troponin I LESS THAN 0.02 Lipase 185 Prothrombin Time 37.9 Prothromb Time International Ratio 3.8 Activated Partial Thromboplast Time 41.9 Result Diagram: 03/16/180 03/16/181749 Imaging Last 24 hours Impressions Abdomen/Pelvis CT 03/16/182003 Signed Impressions: Service Date/Time: Friday, March 16, 2018 20:17 - CONCLUSION: 1. There is abnormal inflammation surrounding the duodenum, pancreatic head, and extending into the small bowel mesentery. The first and second portion of the duodenum appear thickened. Therefore, findings favor a duodenitis as the etiology. Less likely, pancreatitis could have a similar appearance. The small adjacent lymph nodes are atypical for an inflammatory or infectious process. Therefore, recommend followup with contrast-enhanced examination to ensure resolution these findings since malignancy cannot definitely be excluded at this time. 2. There is a fluid density mass abutting the tail of the pancreas measuring 3.9 cm. This may represent a pancreatic cystic lesion and should be further characterize with pancreas protocol CT or MRI once patient condition permits. 3. Airspace consolidation in the right lower lobe with small right pleural effusion. This could represent an infectious process. 4. Liver changes suggestive of cirrhosis. There is an indeterminate 2.4 cm right lobe liver lesion that does not meet criteria for a cyst. Attention should be paid to this on followup imaging as well to have additional characterization. Naun Reardon MD Chest X-Ray 03/16/18 1823 Signed Impressions: Service Date/Time: Friday, March 16, 2018 18:27 - CONCLUSION: Questionable blunting of the right costophrenic sulcus could indicate trace right pleural fluid. Otherwise, no acute finding is identified. Naun Reardon MD Course in er will receive blood transfusion Caprini VTE Risk Assessment Caprini VTE Risk Assessment: Mod/High Risk (score >= 2) Caprini Risk Assessment Model Point Value = 1 Point Value = 2 Point Value = 3 Point Value = 5 Age 41-60 Minor surgery BMI > 25 kg/m2 Swollen legs Varicose veins or History of unexplained or recurrent spontaneous Oral contraceptives or hormone replacement Sepsis (< 1 month) Serious lung disease, including pneumonia (< 1 month) Abnormal pulmonary function Acute myocardial infarction Congestive heart failure (< 1 month) History of inflammatory bowel disease Medical patient at bed rest Age 61-74 Arthroscopic surgery Major open surgery (> 45 min) Laparoscopic surgery (> 45 min) Malignancy Confined to bed (> 72 hours) Immobilizing plaster cast Central venous access Age >= 75 History of VTE Family history of VTE Factor V Leiden Prothrombin [id number] Lupus anticoagulant Anticardiolipin antibodies Elevated serum homocysteine Heparin-induced thrombocytopenia Other congenital or acquired thrombophilia Stroke (< 1 month) Elective arthroplasty Hip, pelvis, or leg fracture Acute spinal cord injury (< 1 month) Prophylaxis Regimen Total Risk Factor Score Risk Level Prophylaxis Regimen 0-1 Low Early ambulation 2 Moderate Order ONE of the following: *Sequential Compression Device (SCD) *Heparin 5000 units SQ BID 3-4 Higher Order ONE of the following medications: *Heparin 5000 units SQ TID *Enoxaparin/Lovenox 40 mg SQ daily (WT < 150 kg, CrCl > 30 mL/min) *Enoxaparin/Lovenox 30 mg SQ daily (WT < 150 kg, CrCl > 10-29 mL/min) *Enoxaparin/Lovenox 30 mg SQ BID (WT < 150 kg, CrCl > 30 mL/min) AND/OR *Sequential Compression Device (SCD) 5 or more Highest Order ONE of the following medications: *Heparin 5000 units SQ TID (Preferred with Epidurals) *Enoxaparin/Lovenox 40 mg SQ daily (WT < 150 kg, CrCl > 30 mL/min) *Enoxaparin/Lovenox 30 mg SQ daily (WT < 150 kg, CrCl > 10-29 mL/min) *Enoxaparin/Lovenox 30 mg SQ BID (WT < 150 kg, CrCl > 30 mL/min) AND *Sequential Compression Device (SCD) Assessment and Plan Problem List: (1) GI (gastrointestinal bleed) ICD Codes: K92.2 - Gastrointestinal hemorrhage, unspecified Status: Acute Plan: will start protonix drip consult GI give ffp for possible endoscopy tomorrow follow labs (2) Diabetes ICD Codes: E11.9 - Diabetes Status: Chronic Plan: sliding scale with coverage hold po medication (3) Atrial fibrillation ICD Codes: I48.91 - Atrial fibrillation Status: Acute Plan: rate is bradycardic hold coumadin (4) COPD (chronic obstructive pulmonary disease) ICD Codes: J44.9 - COPD (chronic obstructive pulmonary disease) Status: Acute (5) CHF (congestive heart failure) ICD Codes: I50.9 - CHF (congestive heart failure) Status: Acute Assessment and Plan as above await CT abdomen Code Status full Discussed Condition With patient Physician Certification 2 Midnight Certification Type: Admission for Inpatient Services Order for Inpatient Services The services are ordered in accordance with Medicare regulations or non- Medicare payer requirements, as applicable. In the case of services not specified as inpatient-only, they are appropriately provided as inpatient services in accordance with the 2-midnight benchmark. Estimated LOS (days): 3 3 days is the estimated time the patient will need to remain in the hospital, assuming treatment plan goals are met and no additional complications. Post-Hospital Plan: Not yet determined Problem Qualifiers (1) GI (gastrointestinal bleed): Qualified Codes: K92.2 - Gastrointestinal hemorrhage, unspecified (2) Diabetes: (3) Atrial fibrillation: Qualified Codes: I48.2 - Chronic atrial fibrillation Lucas Gray MD Mar 16, 2018 22:40
[2018-03-16 22:43] VITALS: BP 146/65; PULSE 61; RESP 20; TEMP 98.6; O2SAT 99
[2018-03-16] MEDS ORDERED: DILTIAZEM HCL 90 MG TAB PO SCH (22:45)
[2018-03-16 23:00] VITALS: BP 151/61; PULSE 62; RESP 20; TEMP 98.6; O2SAT 100
[2018-03-16 23:15] VITALS: BP 141/61; PULSE 61; RESP 20; TEMP 98.5; O2SAT 100
[2018-03-16 23:30] VITALS: BP 151/64; PULSE 62; RESP 20; TEMP 98.6; O2SAT 100
[2018-03-16] MEDS: DILTIAZEM-CD 180 MG CAP ER PO SCH (23:46)
--- NOTE | 2018-03-16 23:52 | EKG ---
Date Performed: 03/16/2018 Time Performed: 17:50:27 PTAGE: 77 years EKG: SINUS BRADYCARDIA WITH FIRST DEGREE AV BLOCK WITH OCCASIONAL SUPRAVENTRICULAR PREMATURE COM PLEXES MARKED LEFT AXIS DEVIATION POSSIBLE ANTEROLATERAL MYOCARDIAL INFARCTION ABNORMAL ECG Compared to PREVIOUS TRACING , rate has decreased with first degree AV block DOCTOR: Graham Samano Interpretating Date/Time 03/16/2018 23:50:57
[2018-03-17] VITALS (7 sets, daily range): BP systolic 114–135; BP diastolic 53–67; PULSE 59–69; RESP 18–24; TEMP 97.5–98.4; O2SAT 95–99
[2018-03-17] MEDS: PANTOPRAZOLE INJ 80 MG in SODIUM CHLORIDE 0.9% INJ 100 ML IV SCH ×2 (06:44→18:02)
[2018-03-17 07:44] LABS: AUTOMATED NEUTROPHIL # 7.2 TH/MM3 (1.8-7.7); BASOPHIL % 0.3 % (0.0-2.0); EOSINOPHIL # 0.2 TH/MM3 (0-0.4); HEMATOCRIT 25.3 % (35.0-46.0); HEMOGLOBIN 8.5 GM/DL (11.6-15.3); LYMPHOCYTE # 1.1 TH/MM3 (1.0-4.8); MEAN CORPUSCULAR HEMOGLOBIN 30.8 PG (27.0-34.0); MEAN CORPUSCULAR HGB CONC 33.8 % (32.0-36.0); MEAN PLATELET VOLUME 8.9 FL (7.0-11.0); MONO % 10.5 % (0.0-8.0); NEUT % 75.2 % (16.0-70.0); PLATELET COUNT 182 TH/MM3 (150-450); RED BLOOD COUNT 2.77 MIL/MM3 (4.00-5.30); RED CELL DISTRIBUTION WIDTH 14.9 % (11.6-17.2); WHITE BLOOD COUNT 9.5 TH/MM3 (4.0-11.0)
[2018-03-17] MEDS: INSULIN ASPART SUPPLEMENTAL SCALE SQ SCH ×4 (08:00→21:00)
[2018-03-17 08:25] LABS: ALKALINE PHOSPHATASE 164 U/L (45-117); ALT (GPT) 32 U/L (10-53); AST (GOT) 31 U/L (15-37); BICARBONATE 25.7 MEQ/L (21.0-32.0); BLOOD UREA NITROGEN 25 MG/DL (7-18); CALCIUM 8.4 MG/DL (8.5-10.1); CHLORIDE 99 MEQ/L (98-107); CREATININE 1.28 MG/DL (0.50-1.00); GLOMERULAR FILTRATION RATE 40 ML/MIN (>89); GLUCOSE,RANDOM 82 MG/DL (74-106); SODIUM (NA) 133 MEQ/L (136-145); TOTAL BILIRUBIN ADULT 1.3 MG/DL (0.2-1.0)
[2018-03-17] MEDS: CARVEDILOL 12.5 MG TAB PO SCH ×2 (08:48→21:07)
[2018-03-17] MEDS: SPIRONOLACTONE 25 MG TAB PO SCH ×2 (08:48→21:08)
[2018-03-17] MEDS: DILTIAZEM-CD 180 MG CAP ER PO SCH ×2 (08:48→21:08)
[2018-03-17] MEDS: MAGNESIUM OXIDE 400 MG TAB PO SCH (08:48)
[2018-03-17] MEDS: FUROSEMIDE 40 MG TAB PO SCH (08:50)
--- NOTE | 2018-03-17 12:15 | HHI.PR ---
Subjective Remarks Pt received 2 units PRBCs and 2 units of FFP overnight She states that her dizziness and SOB is improving since the transfusion She denies any abdominal pain, nausea/vomiting. Objective Vitals Vital Signs Date Time Temp Pulse Resp B/P (MAP) Pulse Ox O2 Delivery O2 Flow Rate FiO2 03/17/18 09:40 98.0 66 22 132/63 96 03/17/18 08:00 98.0 66 22 132/63 (86) 96 03/17/18 05:10 97.5 62 19 124/61 03/17/18 00:00 97.8 62 19 114/53 (73) 99 03/16/18 23:51 03/16/18 23:30 98.6 62 20 151/64 100 03/16/18 23:15 98.5 61 20 141/61 100 03/16/18 23:00 98.6 62 20 151/61 100 03/16/18 22:43 98.6 61 20 146/65 99 03/16/18 18:35 100 Nasal Cannula 2.00 03/16/18 18:35 (78) Nasal Cannula 2.00 03/16/18 17:46 97.8 48 18 122/57 (78) 95 Room Air 03/17/18 03/17/18 03/18/18 15:00 23:00 07:00 Intake Total 574 ml Balance 574 ml FFP 574 ml Result Diagram: 03/17/1815 03/17/18 0615 Other Results Laboratory Tests Test 03/16/18 17:50 03/16/18 19:40 03/17/18 06:15 White Blood Count 9.3 TH/MM3 9.5 TH/MM3 Red Blood Count 2.35 MIL/MM3 2.77 MIL/MM3 Hemoglobin 7.1 GM/DL 8.5 GM/DL Hematocrit 21.8 % 25.3 % Mean Corpuscular Volume 93.0 FL 91.0 FL Mean Corpuscular Hemoglobin 30.3 PG 30.8 PG Mean Corpuscular Hemoglobin Concent 32.6 % 33.8 % Red Cell Distribution Width 15.4 % 14.9 % Platelet Count 196 TH/MM3 182 TH/MM3 Mean Platelet Volume 9.3 FL 8.9 FL Neutrophils (%) (Auto) 79.7 % 75.2 % Lymphocytes (%) (Auto) 7.4 % 12.0 % Monocytes (%) (Auto) 10.8 % 10.5 % Eosinophils (%) (Auto) 1.8 % 2.0 % Basophils (%) (Auto) 0.3 % 0.3 % Neutrophils # (Auto) 7.4 TH/MM3 7.2 TH/MM3 Lymphocytes # (Auto) 0.7 TH/MM3 1.1 TH/MM3 Monocytes # (Auto) 1.0 TH/MM3 1.0 TH/MM3 Eosinophils # (Auto) 0.2 TH/MM3 0.2 TH/MM3 Basophils # (Auto) 0.0 TH/MM3 0.0 TH/MM3 CBC Comment DIFF FINAL DIFF FINAL Differential Comment Blood Urea Nitrogen 27 MG/DL 25 MG/DL Creatinine 1.59 MG/DL 1.28 MG/DL Random Glucose 273 MG/DL 82 MG/DL Total Protein 7.0 GM/DL 7.0 GM/DL Albumin 2.9 GM/DL 3.0 GM/DL Calcium Level 8.2 MG/DL 8.4 MG/DL Magnesium Level 2.5 MG/DL Alkaline Phosphatase 175 U/L 164 U/L Aspartate Amino Transf (AST/SGOT) 42 U/L 31 U/L Alanine Aminotransferase (ALT/SGPT) 35 U/L 32 U/L Total Bilirubin 0.5 MG/DL 1.3 MG/DL Sodium Level 131 MEQ/L 133 MEQ/L Potassium Level 5.3 MEQ/L 4.4 MEQ/L Chloride Level 98 MEQ/L 99 MEQ/L Carbon Dioxide Level 22.3 MEQ/L 25.7 MEQ/L Anion Gap 11 MEQ/L 8 MEQ/L Estimat Glomerular Filtration Rate 31 ML/MIN 40 ML/MIN Total Creatine Kinase 35 U/L Troponin I LESS THAN 0.02 NG/ML Lipase 185 U/L Prothrombin Time 37.9 SEC Prothromb Time International Ratio 3.8 RATIO Activated Partial Thromboplast Time 41.9 SEC Imaging Last 24 hours Impressions Abdomen/Pelvis CT 03/16/182003 Signed Impressions: Service Date/Time: Friday, March 16, 2018 20:17 - CONCLUSION: 1. There is abnormal inflammation surrounding the duodenum, pancreatic head, and extending into the small bowel mesentery. The first and second portion of the duodenum appear thickened. Therefore, findings favor a duodenitis as the etiology. Less likely, pancreatitis could have a similar appearance. The small adjacent lymph nodes are atypical for an inflammatory or infectious process. Therefore, recommend followup with contrast-enhanced examination to ensure resolution these findings since malignancy cannot definitely be excluded at this time. 2. There is a fluid density mass abutting the tail of the pancreas measuring 3.9 cm. This may represent a pancreatic cystic lesion and should be further characterize with pancreas protocol CT or MRI once patient condition permits. 3. Airspace consolidation in the right lower lobe with small right pleural effusion. This could represent an infectious process. 4. Liver changes suggestive of cirrhosis. There is an indeterminate 2.4 cm right lobe liver lesion that does not meet criteria for a cyst. Attention should be paid to this on followup imaging as well to have additional characterization. Naun Reardon MD Chest X-Ray 03/16/18 4357 Signed Impressions: Service Date/Time: Friday, March 16, 2018 18:27 - CONCLUSION: Questionable blunting of the right costophrenic sulcus could indicate trace right pleural fluid. Otherwise, no acute finding is identified. Naun Reardon MD Objective Remarks General: NAD, AAOx3 Chest: air movement Cardiac: Irregular Abd: +BS, soft, ND/NT Ext: No edema A/P Problem List: (1) GI (gastrointestinal bleed) ICD Codes: K92.2 - Gastrointestinal hemorrhage, unspecified Status: Acute Plan: - Pt is a 77 y/o WF with atrial fibrillation chronically anticoagulated on Coumadin, hypertension, chronic bilateral lower extremity edema, and COPD - She presented to the ED at [facility] on 03/16/18 with complaints of shortness of breath and lightheaded/dizzy sensation that started around 2 PM that day. - She also reported that on 03/16 she had diarrhea with noted black stools and incidentally does report having worsening problems with acid reflux and heartburn. She reports that she has been taking Zantac without relief. - Labs in the ED revealed Hgb 7.1 and she was noted to be Hemoccult positive. Pt was given 2 units PRBCs overnight. - Her INR was 3.8 at admission and, Coumadin was held and pt was given Vitamin K and 2 units of FFP. - GI was consulted. - Pt was started on Protonix drip - CT Abd/pelvis (03/16/18) --> There is abnormal inflammation surrounding the duodenum, pancreatic head, and extending into the small bowel mesentery. The first and second portion of the duodenum appear thickened. Therefore, findings favor a duodenitis as the etiology. Less likely, pancreatitis could have a similar appearance. The small adjacent lymph nodes are atypical for an inflammatory or infectious process. Therefore, recommend followup with contrast-enhanced examination to ensure resolution these findings since malignancy cannot definitely be excluded at this time. There is a fluid density mass abutting the tail of the pancreas measuring 3.9 cm. This may represent a pancreatic cystic lesion and should be further characterize with pancreas protocol CT or MRI once patient condition permits. Liver changes suggestive of cirrhosis. There is an indeterminate 2.4 cm right lobe liver lesion that does not meet criteria for a cyst. Attention should be paid to this on followup imaging as well to have additional characterization - Repeat Hgb was 8.5 on 03/17 - Pt is NPO and may need evaluation with EGD today - Pt will need further imaging of the liver and possible biopsy as well as further imaging of the pancreas. Will discuss these findings with GI - Monitor labs closely (2) Diabetes ICD Codes: E11.9 - Diabetes Status: Chronic Plan: - Cont. sliding scale with coverage - Hold po medication (3) Atrial fibrillation ICD Codes: I48.91 - Atrial fibrillation Status: Chronic Plan: - Pt is on Coreg 25mg po BID and Cardizem 180mg po daily - HR is stable currently - Telemetry - Coumadin on hold (4) COPD (chronic obstructive pulmonary disease) ICD Codes: J44.9 - COPD (chronic obstructive pulmonary disease) Status: Chronic Plan: - Home meds continued (5) CHF (congestive heart failure) ICD Codes: I50.9 - CHF (congestive heart failure) Status: Chronic Plan: - Cont. Aldactone 25mg po BID and Lasix 40mg po daily - 2D echo (07/06/14): - EF 51% - LVH - Mitral annular calcification, mild to moderate mitral regurgitation - Aortic cusp calcification - Left atrial enlargement - Trace pulmonic insufficiency - Moderate tricuspid regurgitation with RVSP of 38mmHg Assessment and Plan Patient examined. Assessment and plan formulated with Laura Mejias PA-C. I agree with the above. Problem Qualifiers (1) GI (gastrointestinal bleed): Qualified Codes: K92.2 - Gastrointestinal hemorrhage, unspecified (2) Diabetes: (3) Atrial fibrillation: Qualified Codes: I48.2 - Chronic atrial fibrillation (4) CHF (congestive heart failure): Qualified Codes: I50.22 - Chronic systolic (congestive) heart failure Laura Mejias Mar 17, 2018 12:15 Jermaine Salazar DO Mar 24, 2018 05:16
--- NOTE | 2018-03-17 12:44 | PD.CONS ---
HPI History of Present Illness This is a 77 year old obese female who was admitted to the hospital on 2017. She came in with acute onset of symptoms of lightheadedness, melena diarrhea stools 3 acute onset yesterday. Hemoglobin was 7.1 and patient was given FFP 2 and leukocyte reduction RBC 2. Patient is currently on Coumadin for history of atrial fibrillation, INR was 3.8 on admission. On exam, patient does note some mild gastric and upper mid abdominal pain only with light palpation, but no acute illness or sharp pain noted. Patient does note some nausea, sore throat worse over the past 2 days with cough, no vomiting. Patient does note dysphagia over the past 2 months worsening especially when trying to swallow meat or pills. Patient has a history of dysphasia and heartburn and had her esophagus dilated approximately 6 years ago. She also had colonoscopy at the same time. Aggravating factors of her upper GI symptoms include dairy, peppers, and mushrooms which caused increased gas and bloating. Currently patient denies any constipation, no chills or fever. According to the record patient is on 2 L O2 chronically for her COPD. She does take Zantac but over the past 2 months she notes Zantac ineffective. Current labs include hemoglobin at 8.5 after transfusions, PT/INR on is pending post transfusions, alkaline phosphatase 164. Liver enzymes initially was noted to be AST 42 ALT 35 , now AST 31 ALT 32, bilirubin 1.3. Patient states she drinks alcohol one time a year for a special occasion only. Her last drink was April 2017. Patient is awake, oriented, and good historian. (Hilda Jaime) PFSH Past Medical History GERD Dysphasia COPD, obstructive Atrial fib currently managed on Coumadin Hypertension Chronic lower extremity edema Morbid obesity History of colitis and diverticulitis Chronic oxygen Anemia Gallbladder disease Past Surgical History Most this information was obtained from the record and patient cholecystectomy Right knee Left wrist Cataract EGD and colonoscopy 6-7 years ago (Hilda Jaime) Coded Allergies: latex (Unverified Allergy, Intermediate, RASH, 03/16/18) PT STATES THAT SHE IS ALLERGIC TO THE LATEX IN [place] AND TAPE adhesive (Unverified Adverse Reaction, Intermediate, RASH, REDNESS, ) PATIENT STATES SHE CAN HAVE PAPER TAPE WITHOUT PROBLEMS milk (Unverified Adverse Reaction, Intermediate, DIARRHEA, GAS, 03/16/18) Medications Administered Medications Medications (Trade) Dose Ordered Sig/José Miguel Route PRN Reason Start Time Stop Time Status Last Admin Dose Admin Pantoprazole Sodium 80 mg/ Sodium Chloride 100 ml @ 10 mls/hr CONTINUOUS IV 03/16/18 20:00 03/17/18 06:44 Carvedilol (Coreg) 25 mg BID PO 03/17/18 09:00 03/17/18 08:48 Furosemide (Lasix) 40 mg DAILY PO 03/17/18 09:00 03/17/18 08:50 Magnesium Oxide (Mag-Ox) 400 mg DAILY PO 03/17/18 09:00 03/17/18 08:48 Spironolactone (Aldactone) 25 mg BID PO 03/17/18 09:00 03/17/18 08:48 Diltiazem HCl (Cardizem Cd) 180 mg BID PO 03/16/18 23:00 03/17/18 08:48 Family History No history of colon cancer Social History Non-smoker for 30 years or greater Alcohol once a year minimal last drink was April 2017 No illicit drug (Hilda Jaime) Review of Systems Constitutional: COMPLAINS OF: Fatigue, Dizziness Respiratory: COMPLAINS OF: Cough Gastrointestinal: COMPLAINS OF: Abdominal pain, Black stools, Diarrhea, Nausea , Difficulty Swallowing (Hilda Jaime) GI Exam Vitals I&O Vital Signs Date Time Temp Pulse Resp B/P (MAP) Pulse Ox O2 Delivery O2 Flow Rate FiO2 03/17/18 09:40 98.0 66 22 132/63 96 03/17/18 08:00 98.0 66 22 132/63 (86) 96 03/17/18 05:10 97.5 62 19 124/61 03/17/18 00:00 97.8 62 19 114/53 (73) 99 03/16/18 23:51 03/16/18 23:30 98.6 62 20 151/64 100 03/16/18 23:15 98.5 61 20 141/61 100 03/16/18 23:00 98.6 62 20 151/61 100 03/16/18 22:43 98.6 61 20 146/65 99 03/16/18 18:35 100 Nasal Cannula 2.00 03/16/18 18:35 (78) Nasal Cannula 2.00 03/16/18 17:46 97.8 48 18 122/57 (78) 95 Room Air I/O 03/16/18 03/16/18 03/16/18 03/17/18 03/17/18 03/17/18 07:00 15:00 23:00 07:00 15:00 23:00 Intake Total 10 ml 880 ml 574 ml Output Total 200 ml Balance 10 ml 680 ml 574 ml Intake IV Total 35 ml Packed Cells 800 ml FFP 574 ml Blood Product IV Normal Saline Flush 10 ml 45 ml Output Urine Total 200 ml Imaging Last Impressions Abdomen/Pelvis CT 03/16/182003 Signed Impressions: Service Date/Time: Friday, March 16, 2018 20:17 - CONCLUSION: 1. There is abnormal inflammation surrounding the duodenum, pancreatic head, and extending into the small bowel mesentery. The first and second portion of the duodenum appear thickened. Therefore, findings favor a duodenitis as the etiology. Less likely, pancreatitis could have a similar appearance. The small adjacent lymph nodes are atypical for an inflammatory or infectious process. Therefore, recommend followup with contrast-enhanced examination to ensure resolution these findings since malignancy cannot definitely be excluded at this time. 2. There is a fluid density mass abutting the tail of the pancreas measuring 3.9 cm. This may represent a pancreatic cystic lesion and should be further characterize with pancreas protocol CT or MRI once patient condition permits. 3. Airspace consolidation in the right lower lobe with small right pleural effusion. This could represent an infectious process. 4. Liver changes suggestive of cirrhosis. There is an indeterminate 2.4 cm right lobe liver lesion that does not meet criteria for a cyst. Attention should be paid to this on followup imaging as well to have additional characterization. Naun Reardon MD Chest X-Ray 03/16/18 1823 Signed Impressions: Service Date/Time: Friday, March 16, 2018 18:27 - CONCLUSION: Questionable blunting of the right costophrenic sulcus could indicate trace right pleural fluid. Otherwise, no acute finding is identified. Naun Reardon MD Laboratory Test 03/16/18 17:50 03/16/18 19:40 03/17/18 06:15 White Blood Count 9.3 TH/MM3 9.5 TH/MM3 Red Blood Count 2.35 MIL/MM3 2.77 MIL/MM3 Hemoglobin 7.1 GM/DL 8.5 GM/DL Hematocrit 21.8 % 25.3 % Mean Corpuscular Volume 93.0 FL 91.0 FL Mean Corpuscular Hemoglobin 30.3 PG 30.8 PG Mean Corpuscular Hemoglobin Concent 32.6 % 33.8 % Red Cell Distribution Width 15.4 % 14.9 % Platelet Count 196 TH/MM3 182 TH/MM3 Mean Platelet Volume 9.3 FL 8.9 FL Neutrophils (%) (Auto) 79.7 % 75.2 % Lymphocytes (%) (Auto) 7.4 % 12.0 % Monocytes (%) (Auto) 10.8 % 10.5 % Eosinophils (%) (Auto) 1.8 % 2.0 % Basophils (%) (Auto) 0.3 % 0.3 % Neutrophils # (Auto) 7.4 TH/MM3 7.2 TH/MM3 Lymphocytes # (Auto) 0.7 TH/MM3 1.1 TH/MM3 Monocytes # (Auto) 1.0 TH/MM3 1.0 TH/MM3 Eosinophils # (Auto) 0.2 TH/MM3 0.2 TH/MM3 Basophils # (Auto) 0.0 TH/MM3 0.0 TH/MM3 CBC Comment DIFF FINAL DIFF FINAL Differential Comment Blood Urea Nitrogen 27 MG/DL 25 MG/DL Creatinine 1.59 MG/DL 1.28 MG/DL Random Glucose 273 MG/DL 82 MG/DL Total Protein 7.0 GM/DL 7.0 GM/DL Albumin 2.9 GM/DL 3.0 GM/DL Calcium Level 8.2 MG/DL 8.4 MG/DL Magnesium Level 2.5 MG/DL Alkaline Phosphatase 175 U/L 164 U/L Aspartate Amino Transf (AST/SGOT) 42 U/L 31 U/L Alanine Aminotransferase (ALT/SGPT) 35 U/L 32 U/L Total Bilirubin 0.5 MG/DL 1.3 MG/DL Sodium Level 131 MEQ/L 133 MEQ/L Potassium Level 5.3 MEQ/L 4.4 MEQ/L Chloride Level 98 MEQ/L 99 MEQ/L Carbon Dioxide Level 22.3 MEQ/L 25.7 MEQ/L Anion Gap 11 MEQ/L 8 MEQ/L Estimat Glomerular Filtration Rate 31 ML/MIN 40 ML/MIN Total Creatine Kinase 35 U/L Troponin I LESS THAN 0.02 NG/ML Lipase 185 U/L Prothrombin Time 37.9 SEC Prothromb Time International Ratio 3.8 RATIO Activated Partial Thromboplast Time 41.9 SEC Physical Examination HEENT: Pupils round and reactive to light; normocephalic; atraumatic; no jaundice. Mild hoarseness NECK: Neck is supple, obese CHEST: Low volumes, diminished breath sounds in her bases no obvious wheezing, productive cough CARDIAC: Controlled, irregular rhythm ABDOMEN: Obese, soft, nondistended, tenderness left upper quadrant and left lower quadrant, mid abdominal epigastric area to light palpation; bowel sounds are present in all four quadrants. EXTREMITIES: Mild LE edema. SKIN: Pale, normal; no rash; no jaundice. DOPE SPRAYER: No focal deficits; alert and oriented times three. Mild anxiety (Hilda Jaime) Assessment and Plan Assessment: (1) GI (gastrointestinal bleed) ICD Codes: K92.2 - Gastrointestinal hemorrhage, unspecified Status: Acute Plan Abdominal pain, left upper quadrant, left lower quadrant, mid abdomen and epigastric area. No acute pain unless with light palpation. On admission nausea, diarrhea 3 with melena stools lightheadedness and hemoglobin 7.1. Symptoms were probably related to low hemoglobin. Patient's currently on Coumadin and INR was 3.8. Last Coumadin level was checked last month according to the record. Patient has received 2 units of FFP and 2 units of leukocyte reduced RBCs. INR is pending post transfusion currently patient has had no further diarrhea today. Cough, mild hoarseness, patient has a history of obstructive COPD and uses oxygen at 2 L at home. Does note some increased congestion over the past 2 months Dysphasia, nausea, hoarseness, history of GERD , Zantac ineffective for the past 2 months patient had previous EGD with dilatation approximately 6-7 years ago with her last colonoscopy. She is struggling when taking pills, eating meats, and has aggregating factors with dairy, peppers, no shortness with increased gas and bloating. Abnormal CT scan noted on 03/16/2018 with inflammation of the duodenum, pancreatic head and extended into the small bowel mesentery. Possible pancreatitis or duodenitis. Small adjacent lymph nodes are atypical for inflammatory or infectious process. Liver changes suggestive of cirrhosis, and a 2.4 cm right liver lobe lesion which does not meet criteria for cyst. Small right pleural effusion. Possible recommended follow-up with MRCP patient is terribly claustrophobic and states that she will not agree to do unless she is totally sedated. Plan Diet clear liquids today PPI IV Consent for EGD with dilatation and EUS for a.m. FFP ordered times 01/27/2004 100 on 03/18/2018 preop EGD and EUS N.p.o. at midnight except for her meds Consider colonoscopy for Saturday. Monitor hemoglobin, and PT/INR which is pending this afternoon posttransfusion Transfuse as necessary Supportive care Further recommendations will be based on findings Patient has been examined per myself and discussed/seen per Dr. Bone, note was written on his behalf (Hilda Jaime) Physician Comments Patient seen and examined Agree with above Continue with current supportive care Monitor lab We will plan for an EGD and endoscopic ultrasound for tomorrow And most likely pursue colonoscopy on Saturday Patient seen 03/17/18 (Justin Bone MD) Problem Qualifiers (1) GI (gastrointestinal bleed): Qualified Codes: K92.2 - Gastrointestinal hemorrhage, unspecified Hilda Jaime Mar 17, 2018 12:44 Justin Bone MD Mar 18, 2018 00:53
[2018-03-17] MEDS ORDERED: RESP: ALBUTEROL 2.5 MG/IPRATROPIUM 0.5 MG NEB (SCH) NEB ONE (13:15)
[2018-03-17] MEDS: RESP: ALBUTEROL 2.5 MG/IPRATROPIUM 0.5 MG NEB (SCH) NEB ×2 (16:56→20:59)
[2018-03-17] MEDS: TIOTROPIUM BROMIDE 18 MCG INH INH SCH (18:02)
[2018-03-17] MEDS ORDERED: CHLORHEXIDINE GLUCONATE 2 % 1 PACK (2 CLOTHS) TOPICAL PRN (18:45)
[2018-03-17] MEDS ORDERED: SODIUM CHLORID 0.9% 500 ML IV PRN (18:45)
[2018-03-17] MEDS ORDERED: POVIDONE IODINE 5% (ANTISEPSIS KIT) 4 APPLICATIONS EACH NARE PRN (18:45)
[2018-03-17] MEDS ORDERED: LACTATED RINGER'S 1000 ML IV PRN (18:45)
[2018-03-18] VITALS (12 sets, daily range): BP systolic 109–175; BP diastolic 52–106; PULSE 60–75; RESP 17–20; TEMP 97.5–99.1; O2SAT 93–100
[2018-03-18] MEDS: RESP: ALBUTEROL 2.5 MG/IPRATROPIUM 0.5 MG NEB (SCH) NEB ×4 (04:00→20:12)
[2018-03-18] MEDS: PANTOPRAZOLE INJ 80 MG in SODIUM CHLORIDE 0.9% INJ 100 ML IV SCH ×3 (04:07→20:27)
[2018-03-18] MEDS: INSULIN ASPART SUPPLEMENTAL SCALE SQ SCH ×4 (08:00→20:27)
[2018-03-18] MEDS: FUROSEMIDE 40 MG TAB PO SCH (08:11)
[2018-03-18] MEDS: DILTIAZEM-CD 180 MG CAP ER PO SCH ×2 (08:11→20:21)
[2018-03-18] MEDS: MAGNESIUM OXIDE 400 MG TAB PO SCH (08:11)
[2018-03-18] MEDS: CARVEDILOL 12.5 MG TAB PO SCH ×2 (08:12→20:21)
[2018-03-18] MEDS: SPIRONOLACTONE 25 MG TAB PO SCH ×2 (08:12→20:21)
[2018-03-18 10:56] LABS: AUTOMATED NEUTROPHIL # 5.7 TH/MM3 (1.8-7.7); BASOPHIL % 0.3 % (0.0-2.0); EOSINOPHIL # 0.1 TH/MM3 (0-0.4); EOSINOPHIL % 1.9 % (0.0-4.0); HEMATOCRIT 25.8 % (35.0-46.0); HEMOGLOBIN 8.5 GM/DL (11.6-15.3); LYMPH % 7.6 % (9.0-44.0); LYMPHOCYTE # 0.5 TH/MM3 (1.0-4.8); MEAN CELL VOLUME 91.5 FL (80.0-100.0); MEAN CORPUSCULAR HEMOGLOBIN 30.3 PG (27.0-34.0); MEAN CORPUSCULAR HGB CONC 33.2 % (32.0-36.0); MEAN PLATELET VOLUME 8.6 FL (7.0-11.0); MONOCYTE # 0.6 TH/MM3 (0-0.9); NEUT % 81.2 % (16.0-70.0); PLATELET COUNT 150 TH/MM3 (150-450); RED BLOOD COUNT 2.82 MIL/MM3 (4.00-5.30); RED CELL DISTRIBUTION WIDTH 15.2 % (11.6-17.2)
[2018-03-18 11:00] LABS: INTERNATIONAL NORMALIZED RATIO 1.6 RATIO
[2018-03-18 11:15] LABS: BICARBONATE 28.7 MEQ/L (21.0-32.0); CREATININE 1.22 MG/DL (0.50-1.00)
[2018-03-18] MEDS ORDERED: RESP: ALBUTEROL 2.5 MG/IPRATROPIUM 0.5 MG NEB (PRN) NEB (11:30)
--- NOTE | 2018-03-18 11:32 | HHI.PR ---
Subjective Remarks Pt getting ready to go down for EGD/EUS She complains of some sinus pain/headache this morning Denies any cough or SOB Denies any sore throat or congestion Objective Vitals Vital Signs Date Time Temp Pulse Resp B/P (MAP) Pulse Ox O2 Delivery O2 Flow Rate FiO2 03/18/18 09:41 97.8 73 17 130/64 93 03/18/18 09:30 98 21 03/18/18 09:26 98.0 75 17 175/74 99 03/18/18 09:00 98.0 75 17 175/106 99 03/18/18 08:17 97.8 74 18 127/75 98 03/18/18 04:00 99.1 60 18 109/52 (71) 97 03/18/18 01:26 69 03/18/18 00:00 98.2 67 18 112/59 (76) 98 03/17/18 20:00 98.4 59 18 135/67 (89) 96 03/17/18 16:00 97.8 64 24 132/58 (82) 95 03/17/18 12:00 97.6 69 20 119/56 (77) 97 03/18/18 03/18/18 03/19/18 15:00 23:00 07:00 Intake Total 657 ml Balance 657 ml FFP 657 ml Result Diagram: 03/18/18 1038 03/18/18 1038 Other Results Laboratory Tests Test 03/16/18 17:50 03/16/18 19:40 03/17/18 06:15 03/17/18 14:52 White Blood Count 9.3 TH/MM3 9.5 TH/MM3 Red Blood Count 2.35 MIL/MM3 2.77 MIL/MM3 Hemoglobin 7.1 GM/DL 8.5 GM/DL Hematocrit 21.8 % 25.3 % Mean Corpuscular Volume 93.0 FL 91.0 FL Mean Corpuscular Hemoglobin 30.3 PG 30.8 PG Mean Corpuscular Hemoglobin Concent 32.6 % 33.8 % Red Cell Distribution Width 15.4 % 14.9 % Platelet Count 196 TH/MM3 182 TH/MM3 Mean Platelet Volume 9.3 FL 8.9 FL Neutrophils (%) (Auto) 79.7 % 75.2 % Lymphocytes (%) (Auto) 7.4 % 12.0 % Monocytes (%) (Auto) 10.8 % 10.5 % Eosinophils (%) (Auto) 1.8 % 2.0 % Basophils (%) (Auto) 0.3 % 0.3 % Neutrophils # (Auto) 7.4 TH/MM3 7.2 TH/MM3 Lymphocytes # (Auto) 0.7 TH/MM3 1.1 TH/MM3 Monocytes # (Auto) 1.0 TH/MM3 1.0 TH/MM3 Eosinophils # (Auto) 0.2 TH/MM3 0.2 TH/MM3 Basophils # (Auto) 0.0 TH/MM3 0.0 TH/MM3 CBC Comment DIFF FINAL DIFF FINAL Differential Comment Blood Urea Nitrogen 27 MG/DL 25 MG/DL Creatinine 1.59 MG/DL 1.28 MG/DL Random Glucose 273 MG/DL 82 MG/DL Total Protein 7.0 GM/DL 7.0 GM/DL Albumin 2.9 GM/DL 3.0 GM/DL Calcium Level 8.2 MG/DL 8.4 MG/DL Magnesium Level 2.5 MG/DL Alkaline Phosphatase 175 U/L 164 U/L Aspartate Amino Transf (AST/SGOT) 42 U/L 31 U/L Alanine Aminotransferase (ALT/SGPT) 35 U/L 32 U/L Total Bilirubin 0.5 MG/DL 1.3 MG/DL Sodium Level 131 MEQ/L 133 MEQ/L Potassium Level 5.3 MEQ/L 4.4 MEQ/L Chloride Level 98 MEQ/L 99 MEQ/L Carbon Dioxide Level 22.3 MEQ/L 25.7 MEQ/L Anion Gap 11 MEQ/L 8 MEQ/L Estimat Glomerular Filtration Rate 31 ML/MIN 40 ML/MIN Total Creatine Kinase 35 U/L Troponin I LESS THAN 0.02 NG/ML Lipase 185 U/L Prothrombin Time 37.9 SEC 20.0 SEC Prothromb Time International Ratio 3.8 RATIO 2.0 RATIO Activated Partial Thromboplast Time 41.9 SEC Test 03/18/18 10:38 White Blood Count 7.0 TH/MM3 Red Blood Count 2.82 MIL/MM3 Hemoglobin 8.5 GM/DL Hematocrit 25.8 % Mean Corpuscular Volume 91.5 FL Mean Corpuscular Hemoglobin 30.3 PG Mean Corpuscular Hemoglobin Concent 33.2 % Red Cell Distribution Width 15.2 % Platelet Count 150 TH/MM3 Mean Platelet Volume 8.6 FL Neutrophils (%) (Auto) 81.2 % Lymphocytes (%) (Auto) 7.6 % Monocytes (%) (Auto) 9.0 % Eosinophils (%) (Auto) 1.9 % Basophils (%) (Auto) 0.3 % Neutrophils # (Auto) 5.7 TH/MM3 Lymphocytes # (Auto) 0.5 TH/MM3 Monocytes # (Auto) 0.6 TH/MM3 Eosinophils # (Auto) 0.1 TH/MM3 Basophils # (Auto) 0.0 TH/MM3 CBC Comment DIFF FINAL Differential Comment Prothrombin Time 16.0 SEC Prothromb Time International Ratio 1.6 RATIO Blood Urea Nitrogen 20 MG/DL Creatinine 1.22 MG/DL Random Glucose 134 MG/DL Calcium Level 9.0 MG/DL Sodium Level 134 MEQ/L Potassium Level 4.5 MEQ/L Chloride Level 98 MEQ/L Carbon Dioxide Level 28.7 MEQ/L Anion Gap 7 MEQ/L Estimat Glomerular Filtration Rate 43 ML/MIN Imaging Last 24 hours Impressions Abdomen/Pelvis CT 03/16/182003 Signed Impressions: Service Date/Time: Friday, March 16, 2018 20:17 - CONCLUSION: 1. There is abnormal inflammation surrounding the duodenum, pancreatic head, and extending into the small bowel mesentery. The first and second portion of the duodenum appear thickened. Therefore, findings favor a duodenitis as the etiology. Less likely, pancreatitis could have a similar appearance. The small adjacent lymph nodes are atypical for an inflammatory or infectious process. Therefore, recommend followup with contrast-enhanced examination to ensure resolution these findings since malignancy cannot definitely be excluded at this time. 2. There is a fluid density mass abutting the tail of the pancreas measuring 3.9 cm. This may represent a pancreatic cystic lesion and should be further characterize with pancreas protocol CT or MRI once patient condition permits. 3. Airspace consolidation in the right lower lobe with small right pleural effusion. This could represent an infectious process. 4. Liver changes suggestive of cirrhosis. There is an indeterminate 2.4 cm right lobe liver lesion that does not meet criteria for a cyst. Attention should be paid to this on followup imaging as well to have additional characterization. Naun Reardon MD Chest X-Ray 03/16/18 1823 Signed Impressions: Service Date/Time: Friday, March 16, 2018 18:27 - CONCLUSION: Questionable blunting of the right costophrenic sulcus could indicate trace right pleural fluid. Otherwise, no acute finding is identified. Naun Reardon MD Objective Remarks General: NAD, AAOx3 Chest: air movement Cardiac: Irregular Abd: +BS, soft, ND/NT Ext: No edema A/P Problem List: (1) GI (gastrointestinal bleed) ICD Codes: K92.2 - Gastrointestinal hemorrhage, unspecified Status: Acute Plan: - Pt is a 77 y/o WF with atrial fibrillation chronically anticoagulated on Coumadin, hypertension, chronic bilateral lower extremity edema, and COPD - She presented to the ED at [facility] on 03/16/18 with complaints of shortness of breath and lightheaded/dizzy sensation that started around 2 PM that day. - She also reported that on 03/16 she had diarrhea with noted black stools and incidentally does report having worsening problems with acid reflux and heartburn. She reports that she has been taking Zantac without relief. - Labs in the ED revealed Hgb 7.1 and she was noted to be Hemoccult positive. Pt was given 2 units PRBCs overnight. - Her INR was 3.8 at admission and, Coumadin was held and pt was given Vitamin K and 2 units of FFP. - GI was consulted. - Pt was started on Protonix drip - CT Abd/pelvis (03/16/18) --> There is abnormal inflammation surrounding the duodenum, pancreatic head, and extending into the small bowel mesentery. The first and second portion of the duodenum appear thickened. Therefore, findings favor a duodenitis as the etiology. Less likely, pancreatitis could have a similar appearance. The small adjacent lymph nodes are atypical for an inflammatory or infectious process. Therefore, recommend followup with contrast-enhanced examination to ensure resolution these findings since malignancy cannot definitely be excluded at this time. There is a fluid density mass abutting the tail of the pancreas measuring 3.9 cm. This may represent a pancreatic cystic lesion and should be further characterize with pancreas protocol CT or MRI once patient condition permits. Liver changes suggestive of cirrhosis. There is an indeterminate 2.4 cm right lobe liver lesion that does not meet criteria for a cyst. Attention should be paid to this on followup imaging as well to have additional characterization - Repeat Hgb was 8.5 on 03/18 - Pt is planned for EGD/EUS today - Pt refused MRI due to claustrophobia - Pt may need evaluation with liver biopsy if EGD/EUS is unrevealing - Monitor labs closely (2) Diabetes ICD Codes: E11.9 - Diabetes Status: Chronic Plan: - Cont. sliding scale with coverage - Hold po medication (3) Atrial fibrillation ICD Codes: I48.91 - Atrial fibrillation Status: Chronic Plan: - Pt is on Coreg 25mg po BID and Cardizem 180mg po daily - HR is stable currently - Telemetry - Coumadin on hold - INR reversed with Vitamin K and FFP - INR 1.6 on 03/18 (4) COPD (chronic obstructive pulmonary disease) ICD Codes: J44.9 - COPD (chronic obstructive pulmonary disease) Status: Chronic Plan: - Home meds continued - Duonebs Q6H WA and Q2H PRN (5) CHF (congestive heart failure) ICD Codes: I50.9 - CHF (congestive heart failure) Status: Chronic Plan: - Cont. Aldactone 25mg po BID and Lasix 40mg po daily - 2D echo (07/06/14): - EF 51% - LVH - Mitral annular calcification, mild to moderate mitral regurgitation - Aortic cusp calcification - Left atrial enlargement - Trace pulmonic insufficiency - Moderate tricuspid regurgitation with RVSP of 38mmHg Assessment and Plan Patient examined. Assessment and plan formulated with Laura Mejias PA-C. I agree with the above. Problem Qualifiers (1) GI (gastrointestinal bleed): Qualified Codes: K92.2 - Gastrointestinal hemorrhage, unspecified (2) Diabetes: (3) Atrial fibrillation: Qualified Codes: I48.2 - Chronic atrial fibrillation (4) CHF (congestive heart failure): Qualified Codes: I50.22 - Chronic systolic (congestive) heart failure Laura Mejias Mar 18, 2018 11:32 Jermaine Salazar DO Mar 24, 2018 05:17
[2018-03-18] MEDS ORDERED: PROPOFOL 200 MG/20 ML AMP IV ONE (12:00)
[2018-03-18] MEDS ORDERED: MAGNESIUM CITRATE SOLN 300 ML BTL PO ONE ×2 (14:15→20:00)
--- NOTE | 2018-03-18 14:18 | PD.PROCEDR ---
GI Procedure PROCEDURE PERFORMED EGD with biopsy followed by endoscopic ultrasound with fine-needle aspiration INDICATION FOR PROCEDURE Abdominal pain, diarrhea, melena, anemia, PROCEDURE: The procedure, risks and benefits were discussed with Patient/POA and informed consent was obtained. Anesthesia sedated Patient with Diprivan. Patient was placed in the left lateral decubitus position. EGD: The Pentax videoscope was introduced through the oropharynx and advanced to the second portion of the duodenum under direct visualization. Retroflexion was performed in the stomach. FINDINGS: The esophagus this appeared to be unremarkable with normal limits The stomach there was a large gastric body submucosal mass in the distal portion of the gastric body with normal mucosa in fact the gastric mucosa appeared to be unremarkable throughout The duodenum there was a large duodenal bulb ulcer which was deep clean based slightly friable edges no visible vessel no blood or bleeding the edges were biopsied the rest of the duodenum was unremarkable this ulcers probably the reason for the inflammatory activity noted on CT of the abdomen EUS: The Pentax videoscope was introduced through the oropharynx and advanced to the second portion of the duodenum . FINDINGS: The endoscopic ultrasound features of the pancreas were basically unremarkable from head to tail with normal pancreatic duct No lymphadenopathy was noted A fairly large submucosal mass at the level of the third layer of the gastric wall in the gastric body suggestive of either a GI ST or leiomyoma versus other FNA was performed with good return Otherwise unremarkable EUS ESTIMATED BLOOD LOSS: Minimal SPECIMENS REMOVED: Biopsy from the duodenum and FNA from the gastric mass COMPLICATIONS: None IMPRESSION: Large submucosal gastric mass probable GI ST or leiomyoma Large duodenal bulb ulcer PLAN: Await biopsies Avoid NSAIDs and aspirin Caution with anticoagulation Recommend Protonix 40 mg twice daily Recommend EGD in 2 months Justin Bone MD Mar 18, 2018 14:18
[2018-03-18] MEDS: TIOTROPIUM BROMIDE 18 MCG INH INH SCH (18:30)
[2018-03-18] MEDS: ACETAMINOPHEN 325 MG TAB PO PRN (21:59)
[2018-03-19] VITALS (8 sets, daily range): BP systolic 114–136; BP diastolic 56–84; PULSE 62–86; RESP 17–20; TEMP 97.5–98.1; O2SAT 95–98
[2018-03-19] MEDS ORDERED: MAGNESIUM CITRATE SOLN 300 ML BTL PO ONE (05:00)
[2018-03-19] MEDS: PANTOPRAZOLE INJ 80 MG in SODIUM CHLORIDE 0.9% INJ 100 ML IV SCH (05:18)
[2018-03-19] MEDS: RESP: ALBUTEROL 2.5 MG/IPRATROPIUM 0.5 MG NEB (SCH) NEB ×3 (07:51→20:30)
[2018-03-19] MEDS: INSULIN ASPART SUPPLEMENTAL SCALE SQ SCH ×4 (08:00→21:19)
[2018-03-19] MEDS: TIOTROPIUM BROMIDE 18 MCG INH INH SCH (08:28)
[2018-03-19] MEDS: SPIRONOLACTONE 25 MG TAB PO SCH ×2 (08:29→21:11)
[2018-03-19] MEDS: FUROSEMIDE 40 MG TAB PO SCH (08:29)
[2018-03-19] MEDS: DILTIAZEM-CD 180 MG CAP ER PO SCH ×2 (08:30→21:11)
[2018-03-19] MEDS: MAGNESIUM OXIDE 400 MG TAB PO SCH (08:30)
[2018-03-19] MEDS: CARVEDILOL 12.5 MG TAB PO SCH ×2 (08:30→21:11)
[2018-03-19 08:42] LABS: AUTOMATED NEUTROPHIL # 4.1 TH/MM3 (1.8-7.7); BASOPHIL % 0.3 % (0.0-2.0); EOSINOPHIL # 0.2 TH/MM3 (0-0.4); EOSINOPHIL % 3.1 % (0.0-4.0); HEMATOCRIT 27.7 % (35.0-46.0); HEMOGLOBIN 9.2 GM/DL (11.6-15.3); LYMPH % 10.9 % (9.0-44.0); LYMPHOCYTE # 0.6 TH/MM3 (1.0-4.8); MEAN CELL VOLUME 92.4 FL (80.0-100.0); MEAN CORPUSCULAR HEMOGLOBIN 30.5 PG (27.0-34.0); MEAN PLATELET VOLUME 8.5 FL (7.0-11.0); MONO % 11.7 % (0.0-8.0); MONOCYTE # 0.6 TH/MM3 (0-0.9); PLATELET COUNT 168 TH/MM3 (150-450); WHITE BLOOD COUNT 5.5 TH/MM3 (4.0-11.0)
[2018-03-19 08:51] LABS: INTERNATIONAL NORMALIZED RATIO 1.6 RATIO; PROTHROMBIN TIME - PATIENT 15.7 SEC (9.8-11.6)
[2018-03-19 09:04] LABS: ALBUMIN 3.3 GM/DL (3.4-5.0); AST (GOT) 37 U/L (15-37); BICARBONATE 31.2 MEQ/L (21.0-32.0); BLOOD UREA NITROGEN 17 MG/DL (7-18); CALCIUM 8.6 MG/DL (8.5-10.1); CHLORIDE 99 MEQ/L (98-107); CREATININE 1.23 MG/DL (0.50-1.00); GLOMERULAR FILTRATION RATE 42 ML/MIN (>89); GLUCOSE,RANDOM 103 MG/DL (74-106); SODIUM (NA) 137 MEQ/L (136-145)
[2018-03-19 09:05] LABS: ALT (GPT) 31 U/L (10-53)
[2018-03-19 09:07] LABS: ALKALINE PHOSPHATASE 180 U/L (45-117); TOTAL BILIRUBIN ADULT 0.8 MG/DL (0.2-1.0); TOTAL PROTEIN 7.3 GM/DL (6.4-8.2)
[2018-03-19] MEDS ORDERED: PROPOFOL 200 MG/20 ML AMP IV ONE (12:00)
[2018-03-19] MEDS ORDERED: LIDOCAINE HCL 1% PF 5 ML SYRINGE OTHER ONE (12:00)
--- NOTE | 2018-03-19 12:45 | HHI.PR ---
Subjective Remarks Offers no new complaints at this time Objective Vitals Vital Signs Date Time Temp Pulse Resp B/P (MAP) Pulse Ox O2 Delivery O2 Flow Rate FiO2 03/19/18 12:00 98.0 75 18 127/59 (81) 95 03/19/18 08:00 97.8 81 18 128/63 (84) 98 03/19/18 07:52 98 Nasal Cannula 2.00 03/19/18 04:00 97.5 71 20 119/78 (92) 98 03/19/18 00:00 62 20 114/56 (75) 98 03/18/18 20:15 100 Nasal Cannula 4.00 03/18/18 20:00 98.0 66 20 143/86 (105) 98 03/18/18 16:00 97.5 68 18 145/69 (94) 99 03/18/18 14:07 96 Nasal Cannula 2 03/18/18 14:05 97.0 60 18 118/56 (76) 95 03/18/18 13:45 97.0 70 20 110/56 (74) 96 Result Diagram: 03/19/18 0808 03/19/18 0803 Other Results Laboratory Tests Test 03/16/18 17:50 03/16/18 19:40 03/17/18 06:15 03/17/18 14:52 White Blood Count 9.3 TH/MM3 9.5 TH/MM3 Red Blood Count 2.35 MIL/MM3 2.77 MIL/MM3 Hemoglobin 7.1 GM/DL 8.5 GM/DL Hematocrit 21.8 % 25.3 % Mean Corpuscular Volume 93.0 FL 91.0 FL Mean Corpuscular Hemoglobin 30.3 PG 30.8 PG Mean Corpuscular Hemoglobin Concent 32.6 % 33.8 % Red Cell Distribution Width 15.4 % 14.9 % Platelet Count 196 TH/MM3 182 TH/MM3 Mean Platelet Volume 9.3 FL 8.9 FL Neutrophils (%) (Auto) 79.7 % 75.2 % Lymphocytes (%) (Auto) 7.4 % 12.0 % Monocytes (%) (Auto) 10.8 % 10.5 % Eosinophils (%) (Auto) 1.8 % 2.0 % Basophils (%) (Auto) 0.3 % 0.3 % Neutrophils # (Auto) 7.4 TH/MM3 7.2 TH/MM3 Lymphocytes # (Auto) 0.7 TH/MM3 1.1 TH/MM3 Monocytes # (Auto) 1.0 TH/MM3 1.0 TH/MM3 Eosinophils # (Auto) 0.2 TH/MM3 0.2 TH/MM3 Basophils # (Auto) 0.0 TH/MM3 0.0 TH/MM3 CBC Comment DIFF FINAL DIFF FINAL Differential Comment Blood Urea Nitrogen 27 MG/DL 25 MG/DL Creatinine 1.59 MG/DL 1.28 MG/DL Random Glucose 273 MG/DL 82 MG/DL Total Protein 7.0 GM/DL 7.0 GM/DL Albumin 2.9 GM/DL 3.0 GM/DL Calcium Level 8.2 MG/DL 8.4 MG/DL Magnesium Level 2.5 MG/DL Alkaline Phosphatase 175 U/L 164 U/L Aspartate Amino Transf (AST/SGOT) 42 U/L 31 U/L Alanine Aminotransferase (ALT/SGPT) 35 U/L 32 U/L Total Bilirubin 0.5 MG/DL 1.3 MG/DL Sodium Level 131 MEQ/L 133 MEQ/L Potassium Level 5.3 MEQ/L 4.4 MEQ/L Chloride Level 98 MEQ/L 99 MEQ/L Carbon Dioxide Level 22.3 MEQ/L 25.7 MEQ/L Anion Gap 11 MEQ/L 8 MEQ/L Estimat Glomerular Filtration Rate 31 ML/MIN 40 ML/MIN Total Creatine Kinase 35 U/L Troponin I LESS THAN 0.02 NG/ML Lipase 185 U/L Prothrombin Time 37.9 SEC 20.0 SEC Prothromb Time International Ratio 3.8 RATIO 2.0 RATIO Activated Partial Thromboplast Time 41.9 SEC Test 03/18/18 10:38 03/19/18 08:03 03/19/18 08:08 White Blood Count 7.0 TH/MM3 5.5 TH/MM3 Red Blood Count 2.82 MIL/MM3 3.00 MIL/MM3 Hemoglobin 8.5 GM/DL 9.2 GM/DL Hematocrit 25.8 % 27.7 % Mean Corpuscular Volume 91.5 FL 92.4 FL Mean Corpuscular Hemoglobin 30.3 PG 30.5 PG Mean Corpuscular Hemoglobin Concent 33.2 % 33.0 % Red Cell Distribution Width 15.2 % 15.0 % Platelet Count 150 TH/MM3 168 TH/MM3 Mean Platelet Volume 8.6 FL 8.5 FL Neutrophils (%) (Auto) 81.2 % 74.0 % Lymphocytes (%) (Auto) 7.6 % 10.9 % Monocytes (%) (Auto) 9.0 % 11.7 % Eosinophils (%) (Auto) 1.9 % 3.1 % Basophils (%) (Auto) 0.3 % 0.3 % Neutrophils # (Auto) 5.7 TH/MM3 4.1 TH/MM3 Lymphocytes # (Auto) 0.5 TH/MM3 0.6 TH/MM3 Monocytes # (Auto) 0.6 TH/MM3 0.6 TH/MM3 Eosinophils # (Auto) 0.1 TH/MM3 0.2 TH/MM3 Basophils # (Auto) 0.0 TH/MM3 0.0 TH/MM3 CBC Comment DIFF FINAL DIFF FINAL Differential Comment Prothrombin Time 16.0 SEC 15.7 SEC Prothromb Time International Ratio 1.6 RATIO 1.6 RATIO Blood Urea Nitrogen 20 MG/DL 17 MG/DL Creatinine 1.22 MG/DL 1.23 MG/DL Random Glucose 134 MG/DL 103 MG/DL Calcium Level 9.0 MG/DL 8.6 MG/DL Sodium Level 134 MEQ/L 137 MEQ/L Potassium Level 4.5 MEQ/L 4.3 MEQ/L Chloride Level 98 MEQ/L 99 MEQ/L Carbon Dioxide Level 28.7 MEQ/L 31.2 MEQ/L Anion Gap 7 MEQ/L 7 MEQ/L Estimat Glomerular Filtration Rate 43 ML/MIN 42 ML/MIN Total Protein 7.3 GM/DL Albumin 3.3 GM/DL Alkaline Phosphatase 180 U/L Aspartate Amino Transf (AST/SGOT) 37 U/L Alanine Aminotransferase (ALT/SGPT) 31 U/L Total Bilirubin 0.8 MG/DL Imaging Last 24 hours Impressions Abdomen/Pelvis CT 03/16/182003 Signed Impressions: Service Date/Time: Friday, March 16, 2018 20:17 - CONCLUSION: 1. There is abnormal inflammation surrounding the duodenum, pancreatic head, and extending into the small bowel mesentery. The first and second portion of the duodenum appear thickened. Therefore, findings favor a duodenitis as the etiology. Less likely, pancreatitis could have a similar appearance. The small adjacent lymph nodes are atypical for an inflammatory or infectious process. Therefore, recommend followup with contrast-enhanced examination to ensure resolution these findings since malignancy cannot definitely be excluded at this time. 2. There is a fluid density mass abutting the tail of the pancreas measuring 3.9 cm. This may represent a pancreatic cystic lesion and should be further characterize with pancreas protocol CT or MRI once patient condition permits. 3. Airspace consolidation in the right lower lobe with small right pleural effusion. This could represent an infectious process. 4. Liver changes suggestive of cirrhosis. There is an indeterminate 2.4 cm right lobe liver lesion that does not meet criteria for a cyst. Attention should be paid to this on followup imaging as well to have additional characterization. Naun Reardon MD Chest X-Ray 03/16/18 139 Signed Impressions: Service Date/Time: Friday, March 16, 2018 18:27 - CONCLUSION: Questionable blunting of the right costophrenic sulcus could indicate trace right pleural fluid. Otherwise, no acute finding is identified. Naun Reardon MD Objective Remarks General: NAD, AAOx3 Chest: air movement Cardiac: Irregular Abd: +BS, soft, ND/NT Ext: No edema Procedures EGD/EUS 03/18/[address] Bone A/P Problem List: (1) GI (gastrointestinal bleed) ICD Codes: K92.2 - Gastrointestinal hemorrhage, unspecified Status: Acute Plan: - Pt is a 77 y/o WF with atrial fibrillation chronically anticoagulated on Coumadin, hypertension, chronic bilateral lower extremity edema, and COPD - [place] [facility] [place] with complaints of shortness of breath and lightheaded/dizzy sensation that started around 2 PM that day. - She also reported that on 03/16 she had diarrhea with noted black stools and incidentally does report having worsening problems with acid reflux and heartburn. She reports that she has been taking Zantac without relief. - Labs in the ED revealed Hgb 7.1 and she was noted to be Hemoccult positive. Pt was given 2 units PRBCs overnight. - Her INR was 3.8 at admission and, Coumadin was held and pt was given Vitamin K and 2 units of FFP. - GI was consulted. - Pt was started on Protonix drip - CT Abd/pelvis (03/16/18) --> There is abnormal inflammation surrounding the duodenum, pancreatic head, and extending into the small bowel mesentery. The first and second portion of the duodenum appear thickened. Therefore, findings favor a duodenitis as the etiology. Less likely, pancreatitis could have a similar appearance. The small adjacent lymph nodes are atypical for an inflammatory or infectious process. Therefore, recommend followup with contrast-enhanced examination to ensure resolution these findings since malignancy cannot definitely be excluded at this time. There is a fluid density mass abutting the tail of the pancreas measuring 3.9 cm. This may represent a pancreatic cystic lesion and should be further characterize with pancreas protocol CT or MRI once patient condition permits. Liver changes suggestive of cirrhosis. There is an indeterminate 2.4 cm right lobe liver lesion that does not meet criteria for a cyst. 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 Salazar discussed EGD results and plan with patient in the room and her son over the phone - DC Protonix drip start Protonix 40 mg twice daily - Pt refused MRI due to claustrophobia - Monitor labs closely (2) Diabetes ICD Codes: E11.9 - Diabetes Status: Chronic Plan: - Cont. sliding scale with coverage - Hold po medication (3) Atrial fibrillation ICD Codes: I48.91 - Atrial fibrillation Status: Chronic Plan: - Pt is on Coreg 25mg po BID and Cardizem 180mg po daily - HR is stable currently - Telemetry - Coumadin on hold, awaiting pathology results to determine possible need for surgical resection - INR reversed with Vitamin K and FFP - INR 1.6 on 03/19 - repeat INR in AM (4) COPD (chronic obstructive pulmonary disease) ICD Codes: J44.9 - COPD (chronic obstructive pulmonary disease) Status: Chronic Plan: - Home meds continued - Duonebs Q6H WA and Q2H PRN (5) CHF (congestive heart failure) ICD Codes: I50.9 - CHF (congestive heart failure) Status: Chronic Plan: - Cont. Aldactone 25mg po BID and Lasix 40mg po daily - 2D echo (07/06/14): - EF 51% - LVH - Mitral annular calcification, mild to moderate mitral regurgitation - Aortic cusp calcification - Left atrial enlargement - Trace pulmonic insufficiency - Moderate tricuspid regurgitation with RVSP of 38mmHg Assessment and Plan Patient examined. Assessment and plan formulated with Marilyn Gonzalez PA-C. I agree with the above. Problem Qualifiers (1) GI (gastrointestinal bleed): Qualified Codes: K92.2 - Gastrointestinal hemorrhage, unspecified (2) Diabetes: (3) Atrial fibrillation: Qualified Codes: I48.2 - Chronic atrial fibrillation (4) CHF (congestive heart failure): Qualified Codes: I50.22 - Chronic systolic (congestive) heart failure Marilyn Gonzalez Mar 19, 2018 12:45 Jeramine Salazar DO Mar 24, 2018 05:10
--- NOTE | 2018-03-19 17:51 | PD.PROCEDR ---
GI Procedure PROCEDURE PERFORMED Colonoscopy with snare polypectomy and biopsy INDICATION FOR PROCEDURE Melena, anemia, diarrhea, abdominal pain PROCEDURE: The procedure, risks and benefits were discussed with Patient/POA and informed consent was obtained. Anesthesia sedated Patient with Diprivan. Patient was placed in the left lateral decubitus position. Colonoscopy: The Pentax videoscope was introduced through the rectum and advanced to cecum where the ileocecal valve and appendiceal orifice were identified. Retroflexion was performed in the rectum. Colonic prep was fair FINDINGS: Colonic withdrawal time greater than 6 minutes. As the scope was slowly withdrawn colonic mucosa was carefully inspected the patient was noted to have a submucosal lump in the proximal descending colon most suggestive of lipoma I try to get a penetrating biopsy the patient was found to have 2 polyps in the descending colon both were medium sized sessile polyps that were excised using cold snare technique and were sent for further evaluation there was a third smaller polyp in the sigmoid region was also excised using cold snare technique and sent for further evaluation the patient was noted to have moderate to severe diverticulosis of the descending and sigmoid region retroflexion in the rectum did reveal moderate-sized internal hemorrhoids rectal examination otherwise unremarkable ESTIMATED BLOOD LOSS: None SPECIMENS REMOVED: Colonic biopsies COMPLICATIONS: None IMPRESSION: A ascending colon lipoma Colon polyps descending colon and sigmoid Diverticulosis left colon Internal hemorrhoids PLAN: Await biopsies High-fiber diet Colonoscopy in 3 years Continue present supportive care Okay to resume anticoagulation Justin Bone MD Mar 19, 2018 17:51
[2018-03-19] MEDS: PANTOPRAZOLE SOD 40 MG DELAYED RELEASE TAB PO SCH (21:11)
[2018-03-19] MEDS: ACETAMINOPHEN 325 MG TAB PO PRN (21:17)
[2018-03-20] VITALS (8 sets, daily range): BP systolic 107–134; BP diastolic 55–75; PULSE 73–89; RESP 18–19; TEMP 97.5–98.7; O2SAT 94–100
[2018-03-20 04:40] LABS: HEMOGLOBIN 8.9 GM/DL (11.6-15.3); MEAN CELL VOLUME 92.2 FL (80.0-100.0); MEAN CORPUSCULAR HEMOGLOBIN 30.6 PG (27.0-34.0); MEAN CORPUSCULAR HGB CONC 33.1 % (32.0-36.0); MEAN PLATELET VOLUME 8.2 FL (7.0-11.0); PLATELET COUNT 178 TH/MM3 (150-450); RED BLOOD COUNT 2.92 MIL/MM3 (4.00-5.30); RED CELL DISTRIBUTION WIDTH 14.9 % (11.6-17.2); WHITE BLOOD COUNT 6.3 TH/MM3 (4.0-11.0)
[2018-03-20] MEDS: INSULIN ASPART SUPPLEMENTAL SCALE SQ SCH ×4 (08:00→21:00)
[2018-03-20] MEDS: RESP: ALBUTEROL 2.5 MG/IPRATROPIUM 0.5 MG NEB (SCH) NEB ×3 (08:09→19:33)
[2018-03-20] MEDS: SPIRONOLACTONE 25 MG TAB PO SCH ×2 (08:15→21:00)
[2018-03-20] MEDS: CARVEDILOL 12.5 MG TAB PO SCH ×2 (08:15→21:35)
[2018-03-20] MEDS: DILTIAZEM-CD 180 MG CAP ER PO SCH ×2 (08:15→21:35)
[2018-03-20] MEDS: PANTOPRAZOLE SOD 40 MG DELAYED RELEASE TAB PO SCH ×2 (08:15→21:35)
[2018-03-20] MEDS: MAGNESIUM OXIDE 400 MG TAB PO SCH (08:16)
[2018-03-20] MEDS: FUROSEMIDE 40 MG TAB PO SCH (08:16)
[2018-03-20] MEDS: TIOTROPIUM BROMIDE 18 MCG INH INH SCH (08:17)
[2018-03-20] MEDS ORDERED: PANT40TA3 PO (09:22)
--- NOTE | 2018-03-20 09:24 | HHI.DCPOC ---
Discharge Care Plan Diagnosis: (1) GI (gastrointestinal bleed) (2) Diabetes (3) HTN (hypertension), benign Goals to Promote Your Health * To prevent worsening of your condition and complications * To maintain your health at the optimal level Directions to Meet Your Goals Take your medications as prescribed Follow your dietary instruction Follow activity as directed Keep your appointments as scheduled Take your immunizations and boosters as scheduled If your symptoms worsen call your PCP, if no PCP go to Urgent Care Center or Emergency Room Smoking is Dangerous to Your Health. Avoid second hand smoke Call the 24-hour hour crisis hotline for domestic abuse at Marilyn Gonzalez Mar 20, 2018 09:24 Jermaine Salazar DO Mar 24, 2018 05:12
--- NOTE | 2018-03-20 10:25 | HHI.GIFU ---
Subjective Remarks Sitting up in the chair awake alert responsive Hemoglobin 8.9 no obvious bleeding States one loose bowel movement since colonoscopy no obvious bleeding Afebrile (Hilda Jaime) Objective Vitals I&O Vital Signs Date Time Temp Pulse Resp B/P (MAP) Pulse Ox O2 Delivery O2 Flow Rate FiO2 03/20/18 08:10 99 Nasal Cannula 3.00 03/20/18 08:00 97.9 77 18 116/55 (75) 99 03/20/18 04:00 97.5 73 19 128/74 (92) 100 03/19/18 20:31 95 21 03/19/18 19:57 98.1 86 17 134/73 (93) 95 03/19/18 17:08 97.6 77 20 89/49 (62) 96 03/19/18 16:00 98.0 77 18 136/84 (101) 97 03/19/18 12:00 98.0 75 18 127/59 (81) 95 I/O 03/19/18 03/19/18 03/19/18 03/20/18 03/20/18 03/20/18 07:00 15:00 23:00 07:00 15:00 23:00 Intake Total 100 ml 340 ml Balance 100 ml 340 ml Intake Oral 240 ml IV Total 100 ml Other 100 ml # Voids 5 3 # Bowel Movements 4 10 Laboratory Laboratory Tests Test 03/20/18 04:27 White Blood Count 6.3 Red Blood Count 2.92 Hemoglobin 8.9 Hematocrit 27.0 Mean Corpuscular Volume 92.2 Mean Corpuscular Hemoglobin 30.6 Mean Corpuscular Hemoglobin Concent 33.1 Red Cell Distribution Width 14.9 Platelet Count 178 Mean Platelet Volume 8.2 Imaging Last Impressions Abdomen/Pelvis CT 03/16/182003 Signed Impressions: Service Date/Time: Friday, March 16, 2018 20:17 - CONCLUSION: 1. There is abnormal inflammation surrounding the duodenum, pancreatic head, and extending into the small bowel mesentery. The first and second portion of the duodenum appear thickened. Therefore, findings favor a duodenitis as the etiology. Less likely, pancreatitis could have a similar appearance. The small adjacent lymph nodes are atypical for an inflammatory or infectious process. Therefore, recommend followup with contrast-enhanced examination to ensure resolution these findings since malignancy cannot definitely be excluded at this time. 2. There is a fluid density mass abutting the tail of the pancreas measuring 3.9 cm. This may represent a pancreatic cystic lesion and should be further characterize with pancreas protocol CT or MRI once patient condition permits. 3. Airspace consolidation in the right lower lobe with small right pleural effusion. This could represent an infectious process. 4. Liver changes suggestive of cirrhosis. There is an indeterminate 2.4 cm right lobe liver lesion that does not meet criteria for a cyst. Attention should be paid to this on followup imaging as well to have additional characterization. Naun Reardon MD Chest X-Ray 03/16/18 1823 Signed Impressions: Service Date/Time: Friday, March 16, 2018 18:27 - CONCLUSION: Questionable blunting of the right costophrenic sulcus could indicate trace right pleural fluid. Otherwise, no acute finding is identified. Naun Reardon MD Physical Exam HEENT: PERRLA, normocephalic; atraumatic; no jaundice. Morbid obese NECK: Neck is supple, obese CHEST: No shortness of breath no rhonchi or wheezing CARDIAC: Regular rate and rhythm ABDOMEN: Obese, round, soft, nondistended, nontender, bowel sounds are present in all four quadrants. EXTREMITIES: No lower extremity edema. SKIN: Normal skin turgor , no rash; no jaundice. 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 (Hilda Jaime) Assessment and Plan Assessment: (1) GI (gastrointestinal bleed) ICD Codes: K92.2 - Gastrointestinal hemorrhage, unspecified Status: Acute Plan Abdominal pain, left upper quadrant, left lower quadrant, mid abdomen and epigastric area. No acute pain unless with light palpation. On admission nausea, diarrhea 3 with melena stools lightheadedness and hemoglobin 7.1. Symptoms were probably related to low hemoglobin. Patient's currently on Coumadin and INR was 3.8. Last Coumadin level was checked last month according to the record. Patient has received 2 units of FFP and 2 units of leukocyte reduced RBCs. INR is pending post transfusion currently patient has had no further diarrhea today. Cough, mild hoarseness, patient has a history of obstructive COPD and uses oxygen at 2 L at home. Does note some increased congestion over the past 2 months Dysphasia, nausea, hoarseness, history of GERD , Zantac ineffective for the past 2 months patient had previous EGD with dilatation approximately 6-7 years ago with her last colonoscopy. She is struggling when taking pills, eating meats, and has aggregating factors with dairy, peppers, no shortness with increased gas and bloating. Abnormal CT scan noted on 03/16/2018 with inflammation of the duodenum, pancreatic head and extended into the small bowel mesentery. Possible pancreatitis or duodenitis. Small adjacent lymph nodes are atypical for inflammatory or infectious process. Liver changes suggestive of cirrhosis, and a 2.4 cm right liver lobe lesion which does not meet criteria for cyst. Small right pleural effusion. Possible recommended follow-up with MRCP patient is terribly claustrophobic and states that she will not agree to do unless she is totally sedated. EGD 03/18/18 , findings include large submucosal gastric mass probable GI ST or leiomyoma , large duodenal ulcer Colonoscopy results from 03/19/18, A ascending colon lipoma Colon polyps descending colon and sigmoid Diverticulosis left colon Internal hemorrhoids 03/20/2018, discussed findings of test and plan of care. Patient is slightly anxious over biopsies, but patiently waiting results Increased activity moving around in the room sitting up in the chair Plan Await biopsies, upper and lower procedures Avoid ASA and [place] PPI BID EGD repeat in 2 months. High-fiber diet Colonoscopy in 3 years supportive care Further recommendations will be based on findings of biopsies Patient has been examined per myself and discussed/seen per Dr. 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
--- NOTE | 2018-03-20 11:29 | HHI.DS ---
Discharge Summary Admission Date Mar 16, 2018 at 20:44 Discharge Date: Mar 20, 2018 Admitting Diagnosis GI Bleed, anticoagulated on coumadin (1) GI (gastrointestinal bleed) ICD Codes: K92.2 - Gastrointestinal hemorrhage, unspecified Status: Acute (2) Diabetes ICD Codes: E11.9 - Diabetes Status: Chronic (3) Atrial fibrillation ICD Codes: I48.91 - Atrial fibrillation Status: Chronic (4) COPD (chronic obstructive pulmonary disease) ICD Codes: J44.9 - COPD (chronic obstructive pulmonary disease) Status: Chronic (5) CHF (congestive heart failure) ICD Codes: I50.9 - CHF (congestive heart failure) Status: Chronic Consultants Dr. Bone, GI Procedures EGD/EUS 03/18/[address] Bone Colonoscopy 03/20/[address] Bone Brief History The patient is a 77 year old female who presents to the [facility] emergency department with a history of developing onset of shortness of breath, lightheaded sensation at 2 PM today. She reports that she felt dizzy. She denies having any vertigo symptoms. The patient incidentally also reports that today she had diarrhea 3 times. Yesterday and the day prior she noticed that her stool was black in color. She denies having any known prior history of GI bleed, however she is on Coumadin. She is on Coumadin related to a prior diagnosis of atrial fibrillation. She last had her INR checked a month ago. She reports that in the past she has received a blood transfusion several years ago, however she is unsure why. Her primary care physician is Dr. Xavier. She denies having any recent chest pain or chest pressure. She denies having any prior history of cardiac disease. On review of systems otherwise, she denies having any known recent fevers. She reports having a chronic cough related to postnasal drip. Patient is on chronic oxygen 2 liters for COPD. She denies having any worsening productivity to the cough or increased congestion. She denies having any neck pain, abdominal pain, vomiting, urinary symptoms, or other neurologic symptoms. The patient incidentally does report having worsening problems with acid reflux and heartburn. She reports that she has been taking Zantac without any help in ER found to be anemic 7.1 with positive stools will admit with GI bleed also inr 3.8 will give FFP consult GI as well and get CT scan. CBC/BMP: 03/20/18 0427 03/19/18 0803 Significant Findings Laboratory Tests Test 03/17/18 14:52 03/18/18 10:38 03/19/18 08:03 03/19/18 08:08 Prothrombin Time 20.0 SEC (9.8-11.6) 16.0 SEC (9.8-11.6) 15.7 SEC (9.8-11.6) Red Blood Count 2.82 MIL/MM3 (4.00-5.30) 3.00 MIL/MM3 (4.00-5.30) Hemoglobin 8.5 GM/DL (11.6-15.3) 9.2 GM/DL (11.6-15.3) Hematocrit 25.8 % (35.0-46.0) 27.7 % (35.0-46.0) Neutrophils (%) (Auto) 81.2 % (16.0-70.0) 74.0 % (16.0-70.0) Lymphocytes (%) (Auto) 7.6 % (9.0-44.0) Monocytes (%) (Auto) 9.0 % (0.0-8.0) 11.7 % (0.0-8.0) Lymphocytes # (Auto) 0.5 TH/MM3 (1.0-4.8) 0.6 TH/MM3 (1.0-4.8) Blood Urea Nitrogen 20 MG/DL (7-18) Creatinine 1.22 MG/DL (0.50-1.00) 1.23 MG/DL (0.50-1.00) Random Glucose 134 MG/DL (74-106) Sodium Level 134 MEQ/L (136-145) Estimat Glomerular Filtration Rate 43 ML/MIN (>89) 42 ML/MIN (>89) Albumin 3.3 GM/DL (3.4-5.0) Alkaline Phosphatase 180 U/L (45-117) Test 03/20/18 04:27 Red Blood Count 2.92 MIL/MM3 (4.00-5.30) Hemoglobin 8.9 GM/DL (11.6-15.3) Hematocrit 27.0 % (35.0-46.0) Imaging Last Impressions Abdomen/Pelvis CT 03/16/182003 Signed Impressions: Service Date/Time: Friday, March 16, 2018 20:17 - CONCLUSION: 1. There is abnormal inflammation surrounding the duodenum, pancreatic head, and extending into the small bowel mesentery. The first and second portion of the duodenum appear thickened. Therefore, findings favor a duodenitis as the etiology. Less likely, pancreatitis could have a similar appearance. The small adjacent lymph nodes are atypical for an inflammatory or infectious process. Therefore, recommend followup with contrast-enhanced examination to ensure resolution these findings since malignancy cannot definitely be excluded at this time. 2. There is a fluid density mass abutting the tail of the pancreas measuring 3.9 cm. This may represent a pancreatic cystic lesion and should be further characterize with pancreas protocol CT or MRI once patient condition permits. 3. Airspace consolidation in the right lower lobe with small right pleural effusion. This could represent an infectious process. 4. Liver changes suggestive of cirrhosis. There is an indeterminate 2.4 cm right lobe liver lesion that does not meet criteria for a cyst. Attention should be paid to this on followup imaging as well to have additional characterization. Naun Reardon MD Chest X-Ray 03/16/181822 Signed Impressions: Service Date/Time: Friday, March 16, 2018 18:27 - CONCLUSION: Questionable blunting of the right costophrenic sulcus could indicate trace right pleural fluid. Otherwise, no acute finding is identified. Naun Reardon MD PE at Discharge General: NAD, AAOx3 Chest: air movement Cardiac: Irregular Abd: +BS, soft, ND/NT Ext: No edema Hospital Course GI (gastrointestinal bleed) - Pt is a 77 y/o WF with atrial fibrillation chronically anticoagulated on Coumadin, hypertension, chronic bilateral lower extremity edema, and COPD - She presented to the ED at [facility] on 03/16/18 with complaints of shortness of breath and lightheaded/dizzy sensation that started around 2 PM that day. - She also reported that on 03/16 she had diarrhea with noted black stools and incidentally does report having worsening problems with acid reflux and heartburn. She reports that she has been taking Zantac without relief. - Labs in the ED revealed Hgb 7.1 and she was noted to be Hemoccult positive. Pt was given 2 units PRBCs overnight. - Her INR was 3.8 at admission and, Coumadin was held and pt was given Vitamin K and 2 units of FFP. - GI was consulted. - Pt was started on Protonix drip - CT Abd/pelvis (03/16/18) --> There is abnormal inflammation surrounding the duodenum, pancreatic head, and extending into the small bowel mesentery. The first and second portion of the duodenum appear thickened. Therefore, findings favor a duodenitis as the etiology. Less likely, pancreatitis could have a similar appearance. The small adjacent lymph nodes are atypical for an inflammatory or infectious process. Therefore, recommend followup with contrast-enhanced examination to ensure resolution these findings since malignancy cannot definitely be excluded at this time. There is a fluid density mass abutting the tail of the pancreas measuring 3.9 cm. This may represent a pancreatic cystic lesion and should be further characterize with pancreas protocol CT or MRI once patient condition permits. Liver changes suggestive of cirrhosis. There is an indeterminate 2.4 cm right lobe liver lesion that does not meet criteria for a cyst. 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 Salazar discussed EGD results and plan with patient in the room and her son over the phone - DC Protonix drip start Protonix 40 mg twice daily - Pt refused MRI due to claustrophobia - Monitor labs closely Diabetes - Cont. sliding scale with coverage - Hold po medication Atrial fibrillation - Pt is on Coreg 25mg po BID and Cardizem 180mg po daily - HR is stable currently - Telemetry - Coumadin on hold, awaiting pathology results to determine possible need for surgical resection - INR reversed with Vitamin K and FFP - INR 1.6 on 03/19 - repeat INR in AM COPD (chronic obstructive pulmonary disease) - Home meds continued - Duonebs Q6H WA and Q2H PRN CHF (congestive heart failure) - Cont. Aldactone 25mg po BID and Lasix 40mg po daily - 2D echo (07/06/14): - EF 51% - LVH - Mitral annular calcification, mild to moderate mitral regurgitation - Aortic cusp calcification - Left atrial enlargement - Trace pulmonic insufficiency - Moderate tricuspid regurgitation with RVSP of 38mmHg Marilyn Gonzalez Mar 20, 2018 11:29
--- NOTE | 2018-03-20 17:59 | HHI.PR ---
Subjective Remarks Patient c/o regarding heart healthy diet request reg diet no other complaints at this time Objective Vitals Vital Signs Date Time Temp Pulse Resp B/P (MAP) Pulse Ox O2 Delivery O2 Flow Rate FiO2 03/20/18 16:00 98.3 80 18 134/61 (85) 95 03/20/18 12:00 98.4 80 18 107/75 (86) 96 03/20/18 08:11 74 03/20/18 08:10 99 Nasal Cannula 3.00 03/20/18 08:00 97.9 77 18 116/55 (75) 99 03/20/18 08:00 99 Nasal Cannula 3.00 03/20/18 04:00 97.5 73 19 128/74 (92) 100 03/19/18 20:31 95 21 03/19/18 19:57 98.1 86 17 134/73 (93) 95 03/20/18 03/20/18 03/21/18 15:00 23:00 07:00 Output Total 200 ml Balance -200 ml Output Urine Total 200 ml Result Diagram: 03/20/18 0427 03/19/18 0803 Imaging Last 24 hours Impressions Abdomen/Pelvis CT 03/16/182003 Signed Impressions: Service Date/Time: Friday, March 16, 2018 20:17 - CONCLUSION: 1. There is abnormal inflammation surrounding the duodenum, pancreatic head, and extending into the small bowel mesentery. The first and second portion of the duodenum appear thickened. Therefore, findings favor a duodenitis as the etiology. Less likely, pancreatitis could have a similar appearance. The small adjacent lymph nodes are atypical for an inflammatory or infectious process. Therefore, recommend followup with contrast-enhanced examination to ensure resolution these findings since malignancy cannot definitely be excluded at this time. 2. There is a fluid density mass abutting the tail of the pancreas measuring 3.9 cm. This may represent a pancreatic cystic lesion and should be further characterize with pancreas protocol CT or MRI once patient condition permits. 3. Airspace consolidation in the right lower lobe with small right pleural effusion. This could represent an infectious process. 4. Liver changes suggestive of cirrhosis. There is an indeterminate 2.4 cm right lobe liver lesion that does not meet criteria for a cyst. Attention should be paid to this on followup imaging as well to have additional characterization. Naun Reardon MD Chest X-Ray 03/16/18 1873 Signed Impressions: Service Date/Time: Friday, March 16, 2018 18:27 - CONCLUSION: Questionable blunting of the right costophrenic sulcus could indicate trace right pleural fluid. Otherwise, no acute finding is identified. Naun Reardon MD Objective Remarks General: NAD, AAOx3 Chest: air movement Cardiac: Irregular Abd: +BS, soft, ND/NT Ext: No edema Procedures EGD/EUS 03/18/[address] Bone Colonoscopy 03/20/[address] Bone A/P Problem List: (1) GI (gastrointestinal bleed) ICD Codes: K92.2 - Gastrointestinal hemorrhage, unspecified Status: Acute Plan: GI (gastrointestinal bleed) - Pt is a 77 y/o WF with atrial fibrillation chronically anticoagulated on Coumadin, hypertension, chronic bilateral lower extremity edema, and COPD - She presented to the ED at [facility] [place] on 03/16/18 with complaints of shortness of breath and lightheaded/dizzy sensation that started around 2 PM that day. - She also reported that on 03/16 she had diarrhea with noted black stools and incidentally does report having worsening problems with acid reflux and heartburn. She reports that she has been taking Zantac without relief. - Labs in the ED revealed Hgb 7.1 and she was noted to be Hemoccult positive. Pt was given 2 units PRBCs overnight. - Her INR was 3.8 at admission and, Coumadin was held and pt was given Vitamin K and 2 units of FFP. - GI was consulted. - Pt was started on Protonix drip - CT Abd/pelvis (03/16/18) --> There is abnormal inflammation surrounding the duodenum, pancreatic head, and extending into the small bowel mesentery. The first and second portion of the duodenum appear thickened. Therefore, findings favor a duodenitis as the etiology. Less likely, pancreatitis could have a similar appearance. The small adjacent lymph nodes are atypical for an inflammatory or infectious process. Therefore, recommend followup with contrast-enhanced examination to ensure resolution these findings since malignancy cannot definitely be excluded at this time. There is a fluid density mass abutting the tail of the pancreas measuring 3.9 cm. This may represent a pancreatic cystic lesion and should be further characterize with pancreas protocol CT or MRI once patient condition permits. Liver changes suggestive of cirrhosis. There is an indeterminate 2.4 cm right lobe liver lesion that does not meet criteria for a cyst. Attention should be paid to this on followup imaging as well to have additional characterization - Repeat Hgb was 8.5 on 03/18 -> 9.2 on 03/19, repeat Hgb in AM - Pt is planned for EGD/EUS 03/18: Large submucosal gastric mass probable GI ST or leiomyoma Large duodenal bulb ulcer Dr. Salazar discussed EGD results and plan with patient in the room and her son over the phone - DC Protonix drip start Protonix 40 mg twice daily - Pt refused MRI due to claustrophobia - Monitor labs closely - pathology reports from 03/18 sample final diagnosis: submucosal gastric mass, fine needle aspiration: Fragments of bland spindle cell lesion, suggestive of gastrointestinal Stromal Tumor (GIST) - pathology final diagnosis 03/18 sample small intestine, duodenal bulb, biopsy: - acute duodenitis and mucosal erosion - consult general surgery - 03/19 Colonoscopy with polypectomy and biopsy completed pathology pending (2) Diabetes ICD Codes: E11.9 - Diabetes Status: Chronic Plan: - Cont. sliding scale with coverage - Hold po medication (3) Atrial fibrillation ICD Codes: I48.91 - Atrial fibrillation Status: Chronic Plan: - Pt is on Coreg 25mg po BID and Cardizem 180mg po daily - HR is stable currently - Telemetry - Coumadin on hold, awaiting pathology results to determine possible need for surgical resection - INR reversed with Vitamin K and FFP - INR 1.6 on 03/19 - repeat INR in AM (4) COPD (chronic obstructive pulmonary disease) ICD Codes: J44.9 - COPD (chronic obstructive pulmonary disease) Status: Chronic Plan: - Home meds continued - Duonebs Q6H WA and Q2H PRN (5) CHF (congestive heart failure) ICD Codes: I50.9 - CHF (congestive heart failure) Status: Chronic Plan: - Cont. Aldactone 25mg po BID and Lasix 40mg po daily - 2D echo (07/06/14): - EF 51% - LVH - Mitral annular calcification, mild to moderate mitral regurgitation - Aortic cusp calcification - Left atrial enlargement - Trace pulmonic insufficiency - Moderate tricuspid regurgitation with RVSP of 38mmHg Assessment and Plan Patient examined. Assessment and plan formulated with Marilyn Gonzalez PA-C. I agree with the above. Problem Qualifiers (1) GI (gastrointestinal bleed): Qualified Codes: K92.2 - Gastrointestinal hemorrhage, unspecified (2) Diabetes: (3) Atrial fibrillation: Qualified Codes: I48.2 - Chronic atrial fibrillation (4) CHF (congestive heart failure): Qualified Codes: I50.22 - Chronic systolic (congestive) heart failure Marilyn Gonzalez Mar 20, 2018 17:59 Jermaine Salazar DO Mar 24, 2018 05:11
[2018-03-20] MEDS ORDERED: DIPHENOXYLATE/ATROPINE 2.5 MG/0.025 MG TAB PO PRN (19:15)
[2018-03-20] MEDS: ACETAMINOPHEN 325 MG TAB PO PRN (21:50)
[2018-03-21] VITALS: BP 105/63; PULSE 88; RESP 17; TEMP 97.7; O2SAT 96
[2018-03-21 04:00] VITALS: BP 111/65; PULSE 69; RESP 18; TEMP 97.5; O2SAT 99
[2018-03-21 08:00] VITALS: BP 140/59; PULSE 74; RESP 20; TEMP 98.3; O2SAT 98
[2018-03-21] MEDS: INSULIN ASPART SUPPLEMENTAL SCALE SQ SCH ×3 (08:00→17:20)
[2018-03-21] MEDS: FUROSEMIDE 40 MG TAB PO SCH (08:14)
[2018-03-21] MEDS: MAGNESIUM OXIDE 400 MG TAB PO SCH (08:14)
[2018-03-21] MEDS: SPIRONOLACTONE 25 MG TAB PO SCH (08:14)
[2018-03-21] MEDS: PANTOPRAZOLE SOD 40 MG DELAYED RELEASE TAB PO SCH (08:14)
[2018-03-21] MEDS: DILTIAZEM-CD 180 MG CAP ER PO SCH (08:14)
[2018-03-21] MEDS: CARVEDILOL 12.5 MG TAB PO SCH (08:14)
[2018-03-21] MEDS: TIOTROPIUM BROMIDE 18 MCG INH INH SCH (08:17)
[2018-03-21] MEDS: RESP: ALBUTEROL 2.5 MG/IPRATROPIUM 0.5 MG NEB (SCH) NEB ×2 (09:36→12:20)
[2018-03-21 09:38] VITALS: O2SAT 93
--- NOTE | 2018-03-21 09:56 | PD.CONS ---
HPI Service General Surgery Consult Requested By Dr. Salazar Reason for Consult GIST tumor Primary Care Physician Ham Xavier DO History of Present Illness 77 yo female presented about 5 days ago with shortness of breath and weakness. She was noted to have hemoglobin 7.1 and history revealed that she been having dark tarry stools. She is anticoagulated on Coumadin for atrial fibrillation and INR at that time was 3.8. During her workup she underwent both colonoscopy and EGD. EGD revealed her large duodenal ulcer felt to be the site of her gastrointestinal bleed. Incidental finding included large submucosal mass evaluated by EUS and FNA with pathology revealing fragments of spindle cell lesion likely consistent with GIST. CT abdomen and pelvis without oral or IV contrast revealed multiple findings including likely duodenitis, fluid-filled pancreatic mass of unclear etiology, lymphadenopathy likely reactive, liver mass , likely cirrhosis, umbilical hernia. Review of Systems Constitutional: DENIES: Fever, Chills Eyes: DENIES: Eye inflammation, Eye pain Ears, nose, mouth, throat: DENIES: Nasal discharge, Oral lesions Cardiovascular: DENIES: Chest pain, Palpitations Gastrointestinal: COMPLAINS OF: Black stools Integumentary: DENIES: Pruritus, Rash Neurologic: DENIES: Seizures Past Family Social History Past Medical History COPD DM ERNESTO Afib on coumadin HTN COPD on 2L O2 Past Surgical History Cholecystectomy,rt knee, left wrist Reported Medications Reported Meds & Active Scripts Active Pantoprazole (Pantoprazole Sodium) 40 Mg Tab 40 Mg PO Q12HR Reported Ventolin Hfa 18 GM Inh (Albuterol Sulfate) 90 Mcg/Act Aer 2 Puff INH Q4-6H PRN Atrovent HFA 12.9 GM Inh (Ipratropium [place]) 17 Mcg/Actuation Aer 2 Puff INH TID Furosemide 40 Mg Tab 40 Mg PO DAILY Glipizide 10 Mg Tab 15 Mg PO BID Take 30 minutes before a meal Warfarin 5 Mg Tab 5 Mg PO DAILY Spironolactone 25 Mg Tab 25 Mg PO BID Carvedilol 25 Mg Tab 25 Mg PO BID Metformin ER (Metformin HCl) 1,000 Mg Katy 1,000 Mg PO DAILY With evening meal Magnesium Oxide 400 Mg Tab 400 Mg PO DAILY Diltiazem (Diltiazem HCl) 120 Mg Tab 180 Mg PO BID Allergies: Coded Allergies: latex (Unverified Allergy, Intermediate, RASH, 03/16/18) PT STATES THAT SHE IS ALLERGIC TO THE LATEX IN [place] AND TAPE adhesive (Unverified Adverse Reaction, Intermediate, RASH, REDNESS, ) PATIENT STATES SHE CAN HAVE PAPER TAPE WITHOUT PROBLEMS milk (Unverified Adverse Reaction, Intermediate, DIARRHEA, GAS, 03/16/18) Active Ordered Medications Current Medications Medications (Trade) Dose Ordered Sig/José Miguel Route Start Time Stop Time Status Last Admin (NS Flush) 2 ml UNSCH PRN IVF 03/16/18 18:30 (Proair Hfa Inh) 2 puff BID PRN INH 03/16/18 22:30 (Coreg) 25 mg BID PO 03/17/18 09:00 03/21/18 08:14 (Lasix) 40 mg DAILY PO 03/17/18 09:00 03/21/18 08:14 (Spiriva Inh) 18 mcg DAILY INH 03/17/18 09:00 03/21/18 08:17 (Mag-Ox) 400 mg DAILY PO 03/17/18 09:00 03/21/18 08:14 (Aldactone) 25 mg BID PO 03/17/18 09:00 03/21/18 08:14 (NovoLOG SUPPLEMENTAL SCALE) 1 ACHS SLIDING SCALE SQ 03/17/18 08:00 03/20/18 17:28 (Cardizem Cd) 180 mg BID PO 03/16/18 23:00 03/21/18 08:14 (Duoneb Neb) 1 ampule Q6HR WHILE AWAKE NEB NEB 03/18/18 14:00 03/21/18 09:36 (Duoneb Neb) 1 ampule Q2HR NEB PRN NEB 03/18/18 11:30 (Tylenol) 650 mg Q8H PRN PO 03/18/18 21:00 03/20/18 21:50 (Protonix) 40 mg Q12HR PO 03/19/18 21:00 03/21/18 08:14 (Lomotil Tab) 1 tab Q6H PRN PO 03/20/18 19:15 Family History Noncontributory Social History No ETOH or tobacco use. Physical Exam Vital Signs Vital Signs Date Time Temp Pulse Resp B/P (MAP) Pulse Ox O2 Delivery O2 Flow Rate FiO2 03/21/18 09:38 93 Nasal Cannula 2.00 03/21/18 08:00 98.3 74 20 140/59 (86) 98 03/21/18 04:00 97.5 69 18 111/65 (80) 99 03/21/18 00:00 97.7 88 17 105/63 (77) 96 03/20/18 21:30 Nasal Cannula 2.00 21 03/20/18 20:00 98.7 89 18 125/65 (85) 94 03/20/18 19:35 96 Nasal Cannula 2.00 03/20/18 16:00 98.3 80 18 134/61 (85) 95 03/20/18 12:00 98.4 80 18 107/75 (86) 96 Physical Exam GENERAL: :Obese. Awake and alert. No acute distress. Cooperative. HEAD: Normocephalic. Atraumatic. EYES: Pupils equal round and reactive to light bilaterally. No scleral icterus. ENT: Moist oral mucosa. NECK: Trachea midline. CHEST: Nonlabored breathing. No respiratory distress. CARDIOVASCULAR: Regular rate ABDOMEN: Obese. Nontender and soft. Upper midline scar. EXTREMITIES: No cyanosis or edema. SKIN: Warm, dry, nonjaundiced. Result Diagram: 03/20/18 0427 03/19/18 0803 Imaging Last Impressions Abdomen/Pelvis CT 03/16/182003 Signed Impressions: Service Date/Time: Friday, March 16, 2018 20:17 - CONCLUSION: 1. There is abnormal inflammation surrounding the duodenum, pancreatic head, and extending into the small bowel mesentery. The first and second portion of the duodenum appear thickened. Therefore, findings favor a duodenitis as the etiology. Less likely, pancreatitis could have a similar appearance. The small adjacent lymph nodes are atypical for an inflammatory or infectious process. Therefore, recommend followup with contrast-enhanced examination to ensure resolution these findings since malignancy cannot definitely be excluded at this time. 2. There is a fluid density mass abutting the tail of the pancreas measuring 3.9 cm. This may represent a pancreatic cystic lesion and should be further characterize with pancreas protocol CT or MRI once patient condition permits. 3. Airspace consolidation in the right lower lobe with small right pleural effusion. This could represent an infectious process. 4. Liver changes suggestive of cirrhosis. There is an indeterminate 2.4 cm right lobe liver lesion that does not meet criteria for a cyst. Attention should be paid to this on followup imaging as well to have additional characterization. Naun Reardon MD Chest X-Ray 03/16/18 1823 Signed Impressions: Service Date/Time: Friday, March 16, 2018 18:27 - CONCLUSION: Questionable blunting of the right costophrenic sulcus could indicate trace right pleural fluid. Otherwise, no acute finding is identified. Naun Reardon MD Assessment and Plan Assessment and Plan GI bleed secondary to large duodenal ulcer- per GI. On PPI. H/h stable. New diagnosis large GIST tumor- ok for dc from my standpoint. F/u as outpatient in one month for consideration of resection. Liver mass and possible cirrhosis- needs MRI or contrasted CT as outpatient. INR elevated due to anticoagulation. Albumin 2.9 on admission. Bilirubin normal. Pancreatic mass- no reported h/o pancreatitis or significant ETOH intake. Needs MRI or contrasted CT as outpatient for further evaluation. Cosmo Felix MD Mar 21, 2018 09:56
[2018-03-21 12:00] VITALS: BP 111/69; PULSE 75; RESP 20; TEMP 97.9; O2SAT 97
--- NOTE | 2018-03-21 12:19 | HHI.DS ---
Discharge Summary Admission Date Mar 16, 2018 at 20:44 Discharge Date: Mar 21, 2018 Admitting Diagnosis GI Bleed, anticoagulated on coumadin (1) GI (gastrointestinal bleed) Diagnosis: Principal ICD Codes: K92.2 - Gastrointestinal hemorrhage, unspecified Status: Acute (2) Diabetes Diagnosis: Secondary ICD Codes: E11.9 - Diabetes Status: Chronic (3) Atrial fibrillation Diagnosis: Secondary ICD Codes: I48.91 - Atrial fibrillation Status: Chronic (4) COPD (chronic obstructive pulmonary disease) Diagnosis: Secondary ICD Codes: J44.9 - COPD (chronic obstructive pulmonary disease) Status: Chronic (5) CHF (congestive heart failure) Diagnosis: Secondary ICD Codes: I50.9 - CHF (congestive heart failure) Status: Chronic Consultants Dr. Bone, GI Dr. Felix, general surgery Procedures EGD/EUS 03/18/[address] Bone Colonoscopy 03/20/[address] Bone Brief History The patient is a 77 year old female who presents to the [facility] emergency department with a history of developing onset of shortness of breath, lightheaded sensation at 2 PM today. She reports that she felt dizzy. She denies having any vertigo symptoms. The patient incidentally also reports that today she had diarrhea 3 times. Yesterday and the day prior she noticed that her stool was black in color. She denies having any known prior history of GI bleed, however she is on Coumadin. She is on Coumadin related to a prior diagnosis of atrial fibrillation. She last had her INR checked a month ago. She reports that in the past she has received a blood transfusion several years ago, however she is unsure why. Her primary care physician is Dr. Xavier. She denies having any recent chest pain or chest pressure. She denies having any prior history of cardiac disease. On review of systems otherwise, she denies having any known recent fevers. She reports having a chronic cough related to postnasal drip. Patient is on chronic oxygen 2 liters for COPD. She denies having any worsening productivity to the cough or increased congestion. She denies having any neck pain, abdominal pain, vomiting, urinary symptoms, or other neurologic symptoms. The patient incidentally does report having worsening problems with acid reflux and heartburn. She reports that she has been taking Zantac without any help in ER found to be anemic 7.1 with positive stools will admit with GI bleed also inr 3.8 will give FFP consult GI as well and get CT scan. CBC/BMP: 03/20/18 0427 03/19/18 0803 Significant Findings Laboratory Tests Test 03/19/18 08:03 03/19/18 08:08 03/20/18 04:27 Creatinine 1.23 MG/DL (0.50-1.00) Albumin 3.3 GM/DL (3.4-5.0) Alkaline Phosphatase 180 U/L (45-117) Estimat Glomerular Filtration Rate 42 ML/MIN (>89) Red Blood Count 3.00 MIL/MM3 (4.00-5.30) 2.92 MIL/MM3 (4.00-5.30) Hemoglobin 9.2 GM/DL (11.6-15.3) 8.9 GM/DL (11.6-15.3) Hematocrit 27.7 % (35.0-46.0) 27.0 % (35.0-46.0) Neutrophils (%) (Auto) 74.0 % (16.0-70.0) Monocytes (%) (Auto) 11.7 % (0.0-8.0) Lymphocytes # (Auto) 0.6 TH/MM3 (1.0-4.8) Prothrombin Time 15.7 SEC (9.8-11.6) PE at Discharge General: NAD, AAOx3 Chest: air movement Cardiac: Irregular Abd: +BS, soft, ND/NT Ext: No edema Hospital Course GI (gastrointestinal bleed) - Pt is a 77 y/o WF with atrial fibrillation chronically anticoagulated on Coumadin, hypertension, chronic bilateral lower extremity edema, and COPD - She presented to the ED at [facility] on 03/16/18 with complaints of shortness of breath and lightheaded/dizzy sensation that started around 2 PM that day. - She also reported that on 03/16 she had diarrhea with noted black stools and incidentally does report having worsening problems with acid reflux and heartburn. She reports that she has been taking Zantac without relief. - Labs in the ED revealed Hgb 7.1 and she was noted to be Hemoccult positive. Pt was given 2 units PRBCs overnight. - Her INR was 3.8 at admission and, Coumadin was held and pt was given Vitamin K and 2 units of FFP. - GI was consulted. - Pt was on Protonix drip initially - CT Abd/pelvis (03/16/18) --> There is abnormal inflammation surrounding the duodenum, pancreatic head, and extending into the small bowel mesentery. The first and second portion of the duodenum appear thickened. Therefore, findings favor a duodenitis as the etiology. Less likely, pancreatitis could have a similar appearance. The small adjacent lymph nodes are atypical for an inflammatory or infectious process. Therefore, recommend followup with contrast-enhanced examination to ensure resolution these findings since malignancy cannot definitely be excluded at this time. There is a fluid density mass abutting the tail of the pancreas measuring 3.9 cm. This may represent a pancreatic cystic lesion and should be further characterize with pancreas protocol CT or MRI once patient condition permits. Liver changes suggestive of cirrhosis. There is an indeterminate 2.4 cm right lobe liver lesion that does not meet criteria for a cyst. Attention should be paid to this on followup imaging as well to have additional characterization - Repeat Hgb was 8.5 on 03/18 -> 9.2 on 03/19 - Pt is planned for EGD/EUS 03/18: Large submucosal gastric mass probable GI ST or leiomyoma Large duodenal bulb ulcer Dr. Salazar discussed EGD results and plan with patient in the room and her son over the phone - DC Protonix drip start Protonix 40 mg twice daily - Pt refused MRI due to claustrophobia - Monitor labs closely - pathology reports from 03/18 sample final diagnosis: submucosal gastric mass, fine needle aspiration: Fragments of bland spindle cell lesion, suggestive of gastrointestinal Stromal Tumor (GIST) - pathology final diagnosis 03/18 sample small intestine, duodenal bulb, biopsy: - acute duodenitis and mucosal erosion - consult general surgery, Dr. Salazar discussed case with Dr. Felix. Per surgery patient cleared for DC f/u with general surgery in 1 month. - 03/19 Colonoscopy with polypectomy and biopsy completed pathology pending Diabetes - Cont. sliding scale with coverage - Hold po medication Atrial fibrillation - Pt is on Coreg 25mg po BID and Cardizem 180mg po daily - HR is stable currently - Telemetry - Coumadin on hold, awaiting pathology results to determine possible need for surgical resection - INR reversed with Vitamin K and FFP - INR 1.6 on 03/19 COPD (chronic obstructive pulmonary disease) - Home meds continued - Duonebs Q6H WA and Q2H PRN CHF (congestive heart failure) - Cont. Aldactone 25mg po BID and Lasix 40mg po daily - 2D echo (07/06/14): - EF 51% - LVH - Mitral annular calcification, mild to moderate mitral regurgitation - Aortic cusp calcification - Left atrial enlargement - Trace pulmonic insufficiency - Moderate tricuspid regurgitation with RVSP of 38mmHg Pt Condition on Discharge: Stable Discharge Disposition: Discharge Home Discharge Instructions DIET: Follow Instructions for: Diabetic Diet Activities you can perform: Regular-No Restrictions Follow up Referrals: Gastroenterology - 2 Weeks with Justin Bone MD PCP Follow-up - [address] Xavier Surgical - 1 Month with Cosmo Felix MD New Medications: Pantoprazole (Pantoprazole) 40 Mg Tab 40 MG PO Q12HR for reduce stomach acid, #60 TAB 0 Refills Continued Medications: Albuterol 18 GM Inh (Ventolin Hfa 18 GM Inh) 90 Mcg/Act Aer 2 PUFF INH Q4-6H PRN for SHORTNESS OF BREATH, #1 INHALER 0 Refills Carvedilol (Carvedilol) 25 Mg Tab 25 MG PO BID, #60 TAB 0 Refills Diltiazem (Diltiazem) 120 Mg Tab 180 MG PO BID for Angina, #120 TAB 0 Refills Furosemide (Furosemide) 40 Mg Tab 40 MG PO DAILY, #30 TAB 0 Refills Glipizide (Glipizide) 10 Mg Tab 15 MG PO BID for Blood Sugar Management, #30 TAB 0 Refills Take 30 minutes before a meal Ipratropium HFA 12.9 GM Inh (Atrovent HFA 12.9 GM Inh) 17 Mcg/Actuation Aer 2 PUFF INH TID, #1 INHALER 0 Refills Magnesium Oxide (Magnesium Oxide) 400 Mg Tab 400 MG PO DAILY for Nutritional Supplement, TAB 0 Refills Metformin ER (Metformin ER) 1,000 Mg Katy 1000 MG PO DAILY for Blood Sugar Management, #30 TAB 0 Refills With evening meal Spironolactone (Spironolactone) 25 Mg Tab 25 MG PO BID, #30 TAB 0 Refills Warfarin (Warfarin) 5 Mg Tab 5 MG PO DAILY for Blood Clot Prevention, #30 TAB 0 Refills Additional Information Patient examined. Assessment and plan formulated with Marilyn Gonzalez PA-C. I agree with the above. Marilyn Gonzalez Mar 21, 2018 12:19 Jermaine Salazar DO Mar 24, 2018 05:12
--- NOTE | 2018-03-21 12:23 | HHI.GIFU ---
Subjective Remarks Patient sitting up in the chair Awake talkative no diarrhea noted today Afebrile (Hilda Jaime) Objective Vitals I&O Vital Signs Date Time Temp Pulse Resp B/P (MAP) Pulse Ox O2 Delivery O2 Flow Rate FiO2 03/21/18 09:38 93 Nasal Cannula 2.00 03/21/18 08:00 98.3 74 20 140/59 (86) 98 03/21/18 04:00 97.5 69 18 111/65 (80) 99 03/21/18 00:00 97.7 88 17 105/63 (77) 96 03/20/18 21:30 Nasal Cannula 2.00 21 03/20/18 20:00 98.7 89 18 125/65 (85) 94 03/20/18 19:35 96 Nasal Cannula 2.00 03/20/18 16:00 98.3 80 18 134/61 (85) 95 I/O 03/20/18 03/20/18 03/20/18 03/21/18 03/21/18 03/21/18 07:00 15:00 23:00 07:00 15:00 23:00 Intake Total 880 ml Output Total 200 ml Balance -200 ml 880 ml Intake Oral 880 ml Output Urine Total 200 ml # Voids 5 # Bowel Movements 2 Imaging Last Impressions Abdomen/Pelvis CT 03/16/182003 Signed Impressions: Service Date/Time: Friday, March 16, 2018 20:17 - CONCLUSION: 1. There is abnormal inflammation surrounding the duodenum, pancreatic head, and extending into the small bowel mesentery. The first and second portion of the duodenum appear thickened. Therefore, findings favor a duodenitis as the etiology. Less likely, pancreatitis could have a similar appearance. The small adjacent lymph nodes are atypical for an inflammatory or infectious process. Therefore, recommend followup with contrast-enhanced examination to ensure resolution these findings since malignancy cannot definitely be excluded at this time. 2. There is a fluid density mass abutting the tail of the pancreas measuring 3.9 cm. This may represent a pancreatic cystic lesion and should be further characterize with pancreas protocol CT or MRI once patient condition permits. 3. Airspace consolidation in the right lower lobe with small right pleural effusion. This could represent an infectious process. 4. Liver changes suggestive of cirrhosis. There is an indeterminate 2.4 cm right lobe liver lesion that does not meet criteria for a cyst. Attention should be paid to this on followup imaging as well to have additional characterization. Naun Reardon MD Chest X-Ray 03/16/18 1823 Signed Impressions: Service Date/Time: Friday, March 16, 2018 18:27 - CONCLUSION: Questionable blunting of the right costophrenic sulcus could indicate trace right pleural fluid. Otherwise, no acute finding is identified. Naun Reardon MD Physical Exam HEENT: PERRLA, normocephalic; atraumatic; no jaundice. Morbid obesity NECK: Neck is supple, obese, short CHEST: No shortness of breath no rhonchi or wheezing CARDIAC: Regular rate and rhythm ABDOMEN: Obese abdomen, round, soft, nondistended, nontender, bowel sounds are present in all four quadrants. EXTREMITIES: No lower extremity edema. SKIN: Normal skin turgor , no rash; no jaundice. MEDICAL RECORDS ANALYST: No focal deficits; alert and oriented times three. (Hilda Jaime) Assessment and Plan Assessment: (1) GI (gastrointestinal bleed) ICD Codes: K92.2 - Gastrointestinal hemorrhage, unspecified Status: Acute Plan Abdominal pain, left upper quadrant, left lower quadrant, mid abdomen and epigastric area. No acute pain unless with light palpation. On admission nausea, diarrhea 3 with melena stools lightheadedness and hemoglobin 7.1. Symptoms were probably related to low hemoglobin. Patient's currently on Coumadin and INR was 3.8. Last Coumadin level was checked last month according to the record. Patient has received 2 units of FFP and 2 units of leukocyte reduced RBCs. INR is pending post transfusion currently patient has had no further diarrhea today. Cough, mild hoarseness, patient has a history of obstructive COPD and uses oxygen at 2 L at home. Does note some increased congestion over the past 2 months Dysphasia, nausea, hoarseness, history of GERD , Zantac ineffective for the past 2 months patient had previous EGD with dilatation approximately 6-7 years ago with her last colonoscopy. She is struggling when taking pills, eating meats, and has aggregating factors with dairy, peppers, no shortness with increased gas and bloating. Abnormal CT scan noted on 03/16/2018 with inflammation of the duodenum, pancreatic head and extended into the small bowel mesentery. Possible pancreatitis or duodenitis. Small adjacent lymph nodes are atypical for inflammatory or infectious process. Liver changes suggestive of cirrhosis, and a 2.4 cm right liver lobe lesion which does not meet criteria for cyst. Small right pleural effusion. Possible recommended follow-up with MRCP patient is terribly claustrophobic and states that she will not agree to do unless she is totally sedated. EGD 03/18/18 , findings include large submucosal gastric mass probable GI ST or leiomyoma , large duodenal ulcer Colonoscopy results from 03/19/18, A ascending colon lipoma Colon polyps descending colon and sigmoid Diverticulosis left colon Internal hemorrhoids 03/20/2018, discussed findings of test and plan of care. Patient is slightly anxious over biopsies, but patiently waiting results Increased activity moving around in the room sitting up in the chair 03/21/18, Per Biopsy, Gastric mucosal mass/GIST, probably best to be removed due to the size being over 3 cm but non emergent. Plan to await healing of the ulcer , and repeat EGD first. This plan of care was discussed with patient including Lomotil which is available for any diarrhea she is having. Explained to patient that if diarrhea persist after each stool she can ask for Lomotil medication up to 4 times a day. Plan Diet, regular diabetic diet with high fiber Await biopsies, still waiting on colon. Lomotil as needed. Avoid ASA and ANAIDS PPI BID EGD repeat in 2 months. Colonoscopy in 3 years supportive care Further recommendations will be based on findings of biopsies Patient has been examined per myself and discussed/seen per Dr. Bone, note was written on his behalf (Hilda Jaime) Physician Comments Patient seen and examined Agree with above Continue with current supportive care Monitor labs At this point patient appears to be stable from a GI perspective with no evidence of any active bleeding Patient follow-up with GI post discharge Not much to add at this point we will sign off (Justin Bone MD) Problem Qualifiers (1) GI (gastrointestinal bleed): Qualified Codes: K92.2 - Gastrointestinal hemorrhage, unspecified Hilda Jaime Mar 21, 2018 12:23 Justin Bone MD Mar 21, 2018 17:29
--- NOTE | 2018-03-21 12:35 | HHI.FF ---
Face to Face Verification Diagnosis: (1) Gastrointestinal stromal tumor (GIST) (2) GI (gastrointestinal bleed) (3) Atrial fibrillation (4) Diabetes (5) Hyperlipidemia (6) COPD (chronic obstructive pulmonary disease) (7) CHF (congestive heart failure) Physical Therapy Order: Evaluate and Treat, Improve ambulation, Strength and gait training Home Health Nursing Order: Medical education Signs/symptoms of disease process Medication education-adverse effect Nursing assessment with vital signs I have seen patient Cyndi Elliott on 03/21/18. My clinical findings support the need for the requested home health care services because: Deconditioned w/ increased weakness Limited ability to care for self I certify that my clinical findings support that this patient is homebound because: Unsteady gait/balance Marilyn Gonzalez Mar 21, 2018 12:35
[2018-03-21 16:00] VITALS: BP 130/62; PULSE 73; RESP 22; TEMP 98.1; O2SAT 74
== END 2018-03-21 19:26 | disposition home or self-care (01) | DRG 378 ==
LOC: NEPC 17:35 → NEDA 20:44 → N07A 23:55
PROVIDERS: ADMIT Hospitalist; ATTEND Hospitalist
PROC: 30233N1 Transfusion of Nonautologous Red Blood Cells into Peripheral Vein, Percutaneous Approach (ICD-10-PCS; 2018-03-16)
PROC: 30233K1 Transfusion of Nonautologous Frozen Plasma into Peripheral Vein, Percutaneous Approach (ICD-10-PCS; 2018-03-17)
PROC: 0DB68ZX Excision of Stomach, Via Natural or Artificial Opening Endoscopic, Diagnostic (ICD-10-PCS; 2018-03-18)
PROC: BD42ZZZ Ultrasonography of Stomach (ICD-10-PCS; 2018-03-18)
PROC: 0DB98ZX Excision of Duodenum, Via Natural or Artificial Opening Endoscopic, Diagnostic (ICD-10-PCS; principal; 2018-03-18 12:47)
PROC: 0DBM8ZX Excision of Descending Colon, Via Natural or Artificial Opening Endoscopic, Diagnostic (ICD-10-PCS; 2018-03-19)
PROC: 0DBM8ZX Excision of Descending Colon, Via Natural or Artificial Opening Endoscopic, Diagnostic (ICD-10-PCS; 2018-03-19)
PROC: 0DBN8ZX Excision of Sigmoid Colon, Via Natural or Artificial Opening Endoscopic, Diagnostic (ICD-10-PCS; 2018-03-19)
DX: K26.4 Chronic or unspecified duodenal ulcer with hemorrhage (principal); Z68.41 Body mass index [BMI] 40.0-44.9, adult; I11.0 Hypertensive heart disease with heart failure; R00.1 Bradycardia, unspecified; Z99.81 Dependence on supplemental oxygen; I48.2 Chronic atrial fibrillation; I08.1 Rheumatic disorders of both mitral and tricuspid valves; I50.22 Chronic systolic (congestive) heart failure; C49.A2 Gastrointestinal stromal tumor of stomach; E66.01 Morbid (severe) obesity due to excess calories; K74.60 Unspecified cirrhosis of liver; R13.10 Dysphagia, unspecified; K64.8 Other hemorrhoids; K57.30 Diverticulosis of large intestine without perforation or abscess without bleeding; K63.5 Polyp of colon; D17.5 Benign lipomatous neoplasm of intra-abdominal organs; K29.80 Duodenitis without bleeding; K42.9 Umbilical hernia without obstruction or gangrene; J44.9 Chronic obstructive pulmonary disease, unspecified; D64.9 Anemia, unspecified; E11.9 Type 2 diabetes mellitus without complications; F40.240 Claustrophobia; K21.9 Gastro-esophageal reflux disease without esophagitis; R09.82 Postnasal drip; G47.33 Obstructive sleep apnea (adult) (pediatric); R19.7 Diarrhea, unspecified; R16.0 Hepatomegaly, not elsewhere classified; K86.9 Disease of pancreas, unspecified; M06.9 Rheumatoid arthritis, unspecified; L40.9 Psoriasis, unspecified; R79.1 Abnormal coagulation profile; Z79.01 Long term (current) use of anticoagulants; Z79.84 Long term (current) use of oral hypoglycemic drugs; Z96.651 Presence of right artificial knee joint
CPT/HCPCS: 36430; 43242; 71045; 74176; 80048; 80053; 82550; 82948; 83690; 83735; 84484; 85025; 85027; 85610; 85730; 86850; 86900; 86901; 86920; 86927; 88173; 88305; 93005; 94640; 94664; C9113; J1815; J7050; P9016; P9017

== ENCOUNTER 2018-08-07 15:51 | Inpatient (IN) ==
--- NOTE | 2018-08-07 16:48 | XR ---
EXAM DATE: 08/07/2018 4:44 PM EDT AGE/SEX: 78 years / Female INDICATIONS: Short of breath. CLINICAL DATA: This is the patient's initial encounter. Patient reports that signs and symptoms have been present for 2 days and indicates a pain score of 0/10. MEDICAL/SURGICAL HISTORY: None. None. COMPARISON: [facility] [place], CHEST SINGLE AP, 03/16/2018. . FINDINGS: A single AP view of the chest demonstrates mild cardiomegaly. Mild engorgement of the pulmonary vesse ls. No infiltrates or effusions. Bony structures are unremarkable. CONCLUSION: Mild cardiomegaly with mild pulmonary vascular engorgement. Electronically signed by: Rubén Castillo MD 08/07/2018 4:47 PM EDT
[2018-08-07 17:13] LABS: Baso % (Auto) 0.2 % (0.0-2.0); Eos # (Auto) 0.1 th/mm3 (0.0-0.4); Eos % (Auto) 1.3 % (0.0-4.0); Hematocrit 26.2 % (35.0-46.0); Hemoglobin 8.8 gm/dL (11.6-15.3); Lymph # (Auto) 0.5 th/mm3 (1.0-4.8); Lymph % (Auto) 6.2 % (9.0-44.0); Mean Corpuscular HGB Conc 33.5 % (32.0-36.0); Mean Corpuscular Hemoglobin 32.6 pg (27.0-34.0); Mean Corpuscular Volume 97.3 fL (80.0-100.0); Mean Platelet Volume 8.7 fL (7.0-11.0); Mono # (Auto) 0.9 th/mm3 (0.0-0.9); Neut # (Auto) 7.1 th/mm3 (1.8-7.7); Neut % (Auto) 82.3 % (16.0-70.0); Platelet Count 194 th/mm3 (150-450); Red Blood Count 2.69 mil/mm3 (4.00-5.30); Red Cell Distribution Width 18.2 % (11.6-17.2); White Blood Count 8.7 th/mm3 (4.0-11.0)
[2018-08-07 17:15] LABS: Bilirubin,Urine Negative (Negative); Clarity,Urine Clear (Clear); Color,Urine Yellow (Yellw/Straw); Glucose,Urine (UA) Negative (Negative); Hyaline Casts,Urine 12 /lpf (0-3); Leukocyte Esterase,Urine Negative (Negative); Nitrite,Urine Negative (Negative); Squamous Epithelial Cell,Urine <1 /hpf (0-5)
[2018-08-07 17:18] LABS: Activated Partial Thrombo Time 40.2 sec (24.3-30.1); INR 3.1 Ratio; Prothrombin Time 30.8 sec (9.8-11.6)
[2018-08-07 17:28] LABS: Alanine Aminotransferase 22 U/L (10-53); Albumin 2.8 g/dL (3.4-5.0); Anion Gap 9 meq/L (5-15); Aspartate Aminotransferase 29 U/L (15-37); Blood Urea Nitrogen 34 mg/dL (7-18); Calcium 8.9 mg/dL (8.5-10.1); Carbon Dioxide 28.1 meq/L (21.0-32.0); Chloride 101 meq/L (98-107); Glomerular Filtration Rate 31 mL/min (>89); Glucose,Random 81 mg/dL (74-106); Sodium 138 meq/L (136-145)
[2018-08-07 17:32] LABS: Alkaline Phosphatase 158 U/L (45-117); Total Protein 6.7 g/dL (6.4-8.2); Troponin I 0.03 ng/mL (0.02-0.05)
--- NOTE | 2018-08-07 17:41 | ED ---
HPI General Chief Complaint: Extremity Injury, Lower Stated Complaint: Leg pain Time Seen by Provider: 08/07/18 15:58 Source: patient Mode of arrival: ambulatory Limitations: no limitations History of Present Illness HPI Narrative: 78-year-old female arrives to the ER with a complaint of left lower extremity edema worse than normal. Patient has a history of CHF and takes Lasix and reports compliance with that as per normal however has had increasing left lower extremity swelling still. She also reports pain in the left groin chronic in nature which has now become somewhat deeper over the past few days. Previously it seemed to just involve the skin. Patient denies chest pain. There is some dyspnea reported. No fever. Dietary compliance with CHF guidelines reported. She denies injury. Related Data Home Medications Medication Instructions Recorded Confirmed albuterol sulfate [Ventolin HFA] 2 puff INHALATION Q4-6H PRN 06/03/18 08/07/18 carvedilol 25 mg PO BID 06/03/18 08/07/18 diltiazem HCl 180 mg PO BID 06/03/18 08/07/18 furosemide 40 mg PO DAILY 06/03/18 08/07/18 glipizide 15 mg PO BID 06/03/18 08/07/18 ipratropium bromide [Atrovent HFA] 2 puff INHALATION TID 06/03/18 08/07/18 magnesium oxide 400 mg PO DAILY 06/03/18 08/07/18 metformin 1,000 mg PO BID 06/03/18 08/07/18 pantoprazole 40 mg PO DAILY 06/03/18 08/07/18 spironolactone 25 mg PO BID 06/03/18 08/07/18 warfarin 2.5 mg PO DIRECTED 06/03/18 08/07/18 warfarin [Coumadin] 5 mg PO DIRECTED 06/03/18 08/07/18 Allergies Allergy/AdvReac Type Severity Reaction Status Date / Time latex Allergy Intermediate RASH Verified 06/05/18 09:17 adhesive AdvReac Intermediate RASH, Verified 06/05/18 09:17 REDNESS milk AdvReac Intermediate DIARRHEA, Verified 06/05/18 09:17 GAS mushroom AdvReac Hives Verified 08/07/18 16:09 pepper (genus Capsicum) AdvReac Hives Verified 08/07/18 16:09 Review of Systems ROS: all other systems reviewed are negative [facility] Medical History Medical History A-fib (Acute) 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) CHF (congestive heart failure) (Acute) COPD (chronic obstructive pulmonary disease) (Acute) Diabetes (Acute) History of bleeding ulcers (Acute) Hypertension (Acute) Presence of orthopedic joint implant (Acute) Surgical History Surgical History History of open reduction and internal fixation (ORIF) procedure (Acute) Hx laparoscopic cholecystectomy (Acute) Hx of appendectomy (Acute) Hx of cataract extraction (Acute) Hx of total knee replacement (Acute) Social History Social History Substance History: No History of Abuse Second Hand Smoke Exposure: No Smoking Status: Former smoker Tobacco Type: Cigarettes How Often Do You Have a Drink Containing Alcohol: Never Recent Travel in [facility] within the Last 8 Weeks: No Recent Out of Country Travel within the Last 8 Weeks: No Immunization History Tetanus Immunization: >5 Years Hx Influenza Vaccine This Season: No Exam Narrative Exam Narrative: GENERAL: 78-year-old female pleasant well-nourished well- developed mild to moderate distress SKIN: Within the fold of the suprapubic pannus there is maceration of skin without obvious cellulitis. In the region of the left inguinal crease there is minimal lymphadenopathy. There is no obvious cellulitis of the left groin or induration erythema or fluctuance. HEAD: Atraumatic. Normocephalic. EYES: Pupils equal and round. No scleral icterus. No injection or drainage. ENT: No nasal bleeding or discharge. Mucous membranes pink and moist. NECK: Trachea midline. No JVD. CARDIOVASCULAR: Regular rate and rhythm. No murmur appreciated. RESPIRATORY: No accessory muscle use. Clear to auscultation. Breath sounds equal bilaterally. GASTROINTESTINAL: Abdomen soft, non-tender, nondistended. Hepatic and splenic margins not palpable. MUSCULOSKELETAL: There is 3+ pitting edema bilateral lower extremities. In the left lower extremity there is erythema present consistent with cellulitis. NEUROLOGICAL: Awake and alert. No obvious cranial nerve deficits. Motor grossly within normal limits. Normal speech. PSYCHIATRIC: Appropriate mood and affect; insight and judgment normal. Course Initial Documented Vital Signs Temperature 97.8 F 08/07/18 15:57 Pulse Rate 78 08/07/18 15:57 Respiratory Rate 20 08/07/18 15:57 Blood Pressure 121/57 L 08/07/18 15:57 Pulse Oximetry 96 08/07/18 15:57 Last Documented Vital Signs Temperature 97.8 F 08/07/18 16:08 Pulse Rate 79 08/07/18 16:08 Respiratory Rate 16 08/07/18 16:08 Blood Pressure 121/57 L 08/07/18 16:08 Pulse Oximetry 97 08/07/18 16:30 Medical Decision Making MDM Narrative Medical decision making narrative: 78-year-old female arrives with CHF exacerbation. There is cellulitis left lower extremity with lymphadenopathy in the left groin. Patient will be admitted for IV antibiotics and IV Lasix. Discussed w Dr. Gray. Medical Screen Exam Complete: Yes Emergency Medical Condition: Yes Lab Data Lab results reviewed: Yes I reviewed the patient's lab results. Result diagrams: 08/07/18 16:00 08/07/18 16:00 Lab Results 08/07/18 08/07/18 08/07/18 Range/Units 16:00 16:00 16:00 WBC 8.7 (4.0-11.0) th/mm3 RBC 2.69 L (4.00-5.30) mil/mm3 Hgb 8.8 L (11.6-15.3) gm/dL Hct 26.2 L (35.0-46.0) % MCV 97.3 (80.0-100.0) fL MCH 32.6 (27.0-34.0) pg MCHC 33.5 (32.0-36.0) % RDW 18.2 H (11.6-17.2) % Plt Count 194 (150-450) th/mm3 MPV 8.7 (7.0-11.0) fL Neut % (Auto) 82.3 H (16.0-70.0) % Lymph % (Auto) 6.2 L (9.0-44.0) % [place] % (Auto) 10.0 H (0.0-8.0) % Eos % (Auto) 1.3 (0.0-4.0) % Baso % (Auto) 0.2 (0.0-2.0) % Neut # (Auto) 7.1 (1.8-7.7) th/mm3 Lymph # (Auto) 0.5 L (1.0-4.8) th/mm3 [place] # (Auto) 0.9 (0.0-0.9) th/mm3 Eos # (Auto) 0.1 (0.0-0.4) th/mm3 Baso # (Auto) 0.0 (0.0-0.2) th/mm3 WBC Differential . Differential Comment Auto diff final PT 30.8 H (9.8-11.6) sec INR 3.1 Ratio APTT 40.2 H (24.3-30.1) sec Sodium 138 (136-145) meq/L Potassium 5.0 (3.5-5.1) meq/L Chloride 101 (98-107) meq/L Carbon Dioxide 28.1 (21.0-32.0) meq/L Anion Gap 9 (5-15) meq/L BUN 34 H (7-18) mg/dL Creatinine 1.61 H (0.50-1.00) mg/dL Estimated GFR 31 L (>89) mL/min Random Glucose 81 (74-106) mg/dL Calcium 8.9 (8.5-10.1) mg/dL Total Bilirubin 0.5 (0.2-1.0) mg/dL AST 29 (15-37) U/L ALT 22 (10-53) U/L Alkaline Phosphatase 158 H (45-117) U/L Troponin I 0.03 (0.02-0.05) ng/mL B-Natriuretic Peptide (0-100) pg/mL Total Protein 6.7 (6.4-8.2) g/dL Albumin 2.8 L (3.4-5.0) g/dL Urine Color (Yellw/Straw) Urine Clarity (Clear) Urine pH (5.0-8.5) Ur Specific [place] (1.002-1.035) Urine Protein (Neg-Trace) mg/dL Urine Glucose (UA) (Negative) mg/dL Urine Ketones (Negative) mg/dL Urine Occult Blood (Negative) Urine Nitrate (Negative) Urine Bilirubin (Negative) Urine Urobilinogen (Less than 2) mg/dL Ur Leukocyte Esterase (Negative) Urine RBC (0-3) /hpf Urine WBC (0-5) /hpf Ur Squamous Epith Cells (0-5) /hpf Hyaline Casts (0-3) /lpf Ur Microscopic Review 08/07/18 08/07/18 Range/Units 16:00 16:55 WBC (4.0-11.0) th/mm3 RBC (4.00-5.30) mil/mm3 Hgb (11.6-15.3) gm/dL Hct (35.0-46.0) % MCV (80.0-100.0) fL MCH (27.0-34.0) pg MCHC (32.0-36.0) % RDW (11.6-17.2) % Plt Count (150-450) th/mm3 MPV (7.0-11.0) fL Neut % (Auto) (16.0-70.0) % Lymph % (Auto) (9.0-44.0) % [place] % (Auto) (0.0-8.0) % Eos % (Auto) (0.0-4.0) % Baso % (Auto) (0.0-2.0) % Neut # (Auto) (1.8-7.7) th/mm3 Lymph # (Auto) (1.0-4.8) th/mm3 [place] # (Auto) (0.0-0.9) th/mm3 Eos # (Auto) (0.0-0.4) th/mm3 Baso # (Auto) (0.0-0.2) th/mm3 WBC Differential Differential Comment PT (9.8-11.6) sec INR Ratio APTT (24.3-30.1) sec Sodium (136-145) meq/L Potassium (3.5-5.1) meq/L Chloride (98-107) meq/L Carbon Dioxide (21.0-32.0) meq/L Anion Gap (5-15) meq/L BUN (7-18) mg/dL Creatinine (0.50-1.00) mg/dL Estimated GFR (>89) mL/min Random Glucose (74-106) mg/dL Calcium (8.5-10.1) mg/dL Total Bilirubin (0.2-1.0) mg/dL AST (15-37) U/L ALT (10-53) U/L Alkaline Phosphatase (45-117) U/L Troponin I (0.02-0.05) ng/mL B-Natriuretic Peptide 401 H (0-100) pg/mL Total Protein (6.4-8.2) g/dL Albumin (3.4-5.0) g/dL Urine Color Yellow (Yellw/Straw) Urine Clarity Clear (Clear) Urine pH 5.0 (5.0-8.5) Ur Specific [place] 1.010 (1.002-1.035) Urine Protein Negative (Neg-Trace) mg/dL Urine Glucose (UA) Negative (Negative) mg/dL Urine Ketones Negative (Negative) mg/dL Urine Occult Blood Negative (Negative) Urine Nitrate Negative (Negative) Urine Bilirubin Negative (Negative) Urine Urobilinogen Less than 2 (Less than 2) mg/dL Ur Leukocyte Esterase Negative (Negative) Urine RBC Less than 1 (0-3) /hpf Urine WBC Less than 1 (0-5) /hpf Ur Squamous Epith Cells <1 (0-5) /hpf Hyaline Casts 12 (0-3) /lpf Ur Microscopic Review Not Reportable Imaging Data Radiologist's impression: Chest X-Ray 08/07/18 16:27 CONCLUSION: Mild cardiomegaly with mild pulmonary vascular engorgement. Discharge Plan Discharge Disposition Patient Disposition: 30 Still Patient Physicians Team ED Provider: Addison Samano Primary Care Provider: Ham Xavier Attending Provider: Jermaine Salazar Discharge Interventions Interventions: Vital Signs Last Done: 08/07/18 16:08 Status ED Status: Admitted Observation Patient
[2018-08-07] MEDS ORDERED: Clindamycin 900 mg/NS Premix 900 MG/50 ML PIGGYBACK IV.SIG ONE (18:17)
[2018-08-07] MEDS ORDERED: Sodium Chlor 0.9% Inj 500 ML IV.SIG SCH (19:00)
[2018-08-07] MEDS ORDERED: Dextrose 50% in Water 50 ML Vial IV.PUSH PRN (21:29)
[2018-08-07] MEDS ORDERED: Bisacodyl 10 MG Supp RECTAL PRN (21:33)
[2018-08-07] MEDS: Clindamycin 600 mg/NS Premix 600 MG/50 ML PIGGYBACK IV.SIG SCH (21:47)
--- NOTE | 2018-08-07 21:53 | P.HP ---
History of Present Illness Service: [facility] hospitalist Primary Care Physician: Ham Xavier DO Chief Complaint: Increasing lower extremity edema History of Present Illness: 78-year-old female arrives to the ER with a complaint of left lower extremity edema worse than normal. Patient has a history of CHF and takes Lasix and reports compliance with that as per normal however has had increasing left lower extremity swelling still. She also reports pain in the left groin chronic in nature which has now become somewhat deeper over the past few days. Previously it seemed to just involve the skin. Patient denies chest pain. There is some dyspnea reported. No fever. Dietary compliance with CHF guidelines reported. She denies injury. In er found to be in mild CHF based on chest xray,also with cellulitis left lower extremity and bilateral groin cellulitis,will start IV clindamycin and IV lasix and will admit to observation. Patient denies chest pain nausea some SOB ,no headache ,dizziness some trouble ambulating from the edema. Patient also has atrial fibe on Coumadin ,INR 3.1 hold for now. Related Data - Diagnosis (1) Edema (2) Cellulitis (3) CHF (congestive heart failure) (4) Diabetes Review of Systems All other systems reviewed negative except as stated in HPI PMFSH - History History Provided By: Patient - Medical History Medical History: Medical History (Last Updated 06/03/18 @ 12:37 by Tanika Higgins RN) A-fib Benign carcinoid tumor of other sites CHF (congestive heart failure) COPD (chronic obstructive pulmonary disease) Diabetes History of bleeding ulcers Hypertension Presence of orthopedic joint implant - Surgical History Surgical History: Surgical History (Last Updated 06/03/18 @ 12:19 by Tanika Higgins RN) History of open reduction and internal fixation (ORIF) procedure Hx laparoscopic cholecystectomy Hx of appendectomy Hx of cataract extraction Hx of total knee replacement - Tobacco History Second Hand Smoke Exposure: No Tobacco Use In Past 30 Days: Yes Smoking Status: Former smoker Tobacco Type: Cigarettes - Alcohol History How Often Do You Have a Drink Containing Alcohol: Never - Substance Use History Substance History: No History of Abuse - Travel History Recent Travel in the [place] Within the Last 8 Weeks: No Recent Travel Out of the Country Within the Last 8 Weeks: No - Immunization History Tetanus Immunization: >5 Years Hx Influenza Vaccine This Season: No Medications and Allergies Active Medications: Active Medications Acetaminophen (Tylenol) 650 mg PO Q8H PRN PRN Reason: TEMPERATURE > 100.5 F Bisacodyl (Dulcolax Supp) 10 mg RECTAL DAILY PRN PRN Reason: SEVERE CONSITIPATION Dextrose (D50w Vial) 50 ml IV.PUSH UNSCH PRN PRN Reason: PER HYPOGLYCEMIA PROTOCOL Furosemide (Lasix Inj) 40 mg IV.PUSH BID@0900,1800 IRMA Glipizide (Glucotrol) 15 mg PO BID IRMA Glucagon (Glucagon Inj) 1 mg OTHER PRN PRN PRN Reason: for Hypoglycemia Protocol Sodium Chloride (Ns Inj) 500 mls @ 0 mls/hr IV.SIG BOLUS IRMA Clindamycin/Sodium Chloride (Cleocin 600 Mg/Ns Premix) 600 mg in 50 mls @ 100 mls/hr IV.SIG Q8H IRMA Stop: 08/08/18 14:02 Insulin Aspart (Novolog Insulin Correctional Sugar Inj) 0 unit SQ ACHS AND 3AM IRMA; Protocol Ipratropium [place] (Atroven Hfa Inh) 2 puff INH TID [facility] Magnesium Oxide (Mag-Ox) 400 mg PO DAILY [facility] Non-Formulary Medication (Carvedilol [Carvedilol]) 25 mg PO BID [facility] Non-Formulary Medication (Diltiazem Hcl [Diltiazem Hcl]) 180 mg PO BID [facility] Non-Formulary Medication (Albuterol Sulfate) 2 puff INHALATION Q4-6H PRN PRN Reason: Shortness Of Breath Ondansetron HCl (Zofran Inj) 4 mg IV.PUSH Q6H PRN PRN Reason: NAUSEA OR VOMITING Pantoprazole Sodium (Protonix) 40 mg PO DAILY [facility] Sennosides (Senokot) 17.2 mg PO Q12H PRN PRN Reason: Moderate Constipation Spironolactone (Aldactone) 25 mg PO BID [facility] Allergies Allergy/AdvReac Type Severity Reaction Status Date / Time latex Allergy Intermediate RASH Verified 06/05/18 09:17 adhesive AdvReac Intermediate RASH, Verified 06/05/18 09:17 REDNESS milk AdvReac Intermediate DIARRHEA, Verified 06/05/18 09:17 GAS mushroom AdvReac Hives Verified 08/07/18 16:09 pepper (genus Capsicum) AdvReac Hives Verified 08/07/18 16:09 Home Medications Medication Instructions Recorded Confirmed Type albuterol sulfate [Ventolin HFA] 2 puff INHALATION Q4-6H PRN 06/03/18 08/07/18 History carvedilol 25 mg PO BID 06/03/18 08/07/18 History diltiazem HCl 180 mg PO BID 06/03/18 08/07/18 History furosemide 40 mg PO DAILY 06/03/18 08/07/18 History glipizide 15 mg PO BID 06/03/18 08/07/18 History ipratropium bromide [Atrovent HFA] 2 puff INHALATION TID 06/03/18 08/07/18 History magnesium oxide 400 mg PO DAILY 06/03/18 08/07/18 History metformin 1,000 mg PO BID 06/03/18 08/07/18 History pantoprazole 40 mg PO DAILY 06/03/18 08/07/18 History spironolactone 25 mg PO BID 06/03/18 08/07/18 History warfarin 2.5 mg PO DIRECTED 06/03/18 08/07/18 History warfarin [Coumadin] 5 mg PO DIRECTED 06/03/18 08/07/18 History Exam Vital signs: Vital Signs 08/07/18 15:57 08/07/18 16:08 08/07/18 16:30 Temperature 97.8 F 97.8 F Pulse Rate 78 79 Respiratory Rate 20 16 Blood Pressure 121/57 L 121/57 L Pulse Oximetry 96 97 97 08/07/18 19:57 08/07/18 20:00 Temperature 97.8 F Pulse Rate 85 99 H Respiratory Rate 20 16 Blood Pressure 138/62 118/64 Pulse Oximetry 95 95 Intake & Output 08/07/18 08/07/18 08/08/18 06:59 18:59 06:59 Weight 113.398 kg Narrative: GENERAL: SKIN: Warm and dry.Skin folds of suprapubic pannusand some palpable nodes rt inguinal area HEAD: Normocephalic. EYES: No scleral icterus. No injection or drainage. NECK: Supple, trachea midline. No JVD or lymphadenopathy. CARDIOVASCULAR: Regular rate and rhythm without murmurs, gallops, or rubs. RESPIRATORY: Breath sounds equal bilaterally. No accessory muscle use. GASTROINTESTINAL: Abdomen soft, non-tender, nondistended. MUSCULOSKELETAL: No cyanosis, plus 3 edema lower extremities with left erythema ,redness BACK: Nontender without obvious deformity. No CVA tenderness. Results - Labs CBC & Chem 7: 08/07/18 16:00 08/07/18 16:00 Labs: Laboratory Results - last 24 hr 08/07/18 08/07/18 08/07/18 16:00 16:00 16:00 WBC 8.7 RBC 2.69 L Hgb 8.8 L Hct 26.2 L MCV 97.3 MCH 32.6 MCHC 33.5 RDW 18.2 H Plt Count 194 MPV 8.7 Neut % (Auto) 82.3 H Lymph % (Auto) 6.2 L [place] % (Auto) 10.0 H Eos % (Auto) 1.3 Baso % (Auto) 0.2 Neut # (Auto) 7.1 Lymph # (Auto) 0.5 L [place] # (Auto) 0.9 Eos # (Auto) 0.1 Baso # (Auto) 0.0 WBC Differential . Differential Comment Auto diff final PT 30.8 H INR 3.1 APTT 40.2 H Sodium 138 Potassium 5.0 Chloride 101 Carbon Dioxide 28.1 Anion Gap 9 BUN 34 H Creatinine 1.61 H Estimated GFR 31 L Random Glucose 81 Calcium 8.9 Total Bilirubin 0.5 AST 29 ALT 22 Alkaline Phosphatase 158 H Troponin I 0.03 B-Natriuretic Peptide Total Protein 6.7 Albumin 2.8 L Urine Color Urine Clarity Urine pH Ur Specific [place] Urine Protein Urine Glucose (UA) Urine Ketones Urine Occult Blood Urine Nitrate Urine Bilirubin Urine Urobilinogen Ur Leukocyte Esterase Urine RBC Urine WBC Ur Squamous Epith Cells Hyaline Casts Ur Microscopic Review 08/07/18 08/07/18 16:00 16:55 WBC RBC Hgb Hct MCV MCH MCHC RDW Plt Count MPV Neut % (Auto) Lymph % (Auto) [place] % (Auto) Eos % (Auto) Baso % (Auto) Neut # (Auto) Lymph # (Auto) [place] # (Auto) Eos # (Auto) Baso # (Auto) WBC Differential Differential Comment PT INR APTT Sodium Potassium Chloride Carbon Dioxide Anion Gap BUN Creatinine Estimated GFR Random Glucose Calcium Total Bilirubin AST ALT Alkaline Phosphatase Troponin I B-Natriuretic Peptide 401 H Total Protein Albumin Urine Color Yellow Urine Clarity Clear Urine pH 5.0 Ur Specific [place] 1.010 Urine Protein Negative Urine Glucose (UA) Negative Urine Ketones Negative Urine Occult Blood Negative Urine Nitrate Negative Urine Bilirubin Negative Urine Urobilinogen Less than 2 Ur Leukocyte Esterase Negative Urine RBC Less than 1 Urine WBC Less than 1 Ur Squamous Epith Cells <1 Hyaline Casts 12 Ur Microscopic Review Not Reportable - Imaging Impressions Chest X-Ray 08/07/18 16:27 CONCLUSION: Mild cardiomegaly with mild pulmonary vascular engorgement. Caprini VTE Risk Assessment Caprini VTE Risk Assessment: Moderate/High Risk (score >= 2) Caprini Risk Assessment Model: Point Value = 1 Point Value = 2 Point Value = 3 Point Value = 5 Age 41-60 Minor surgery BMI > 25 kg/m2 Swollen legs Varicose veins or History of unexplained or recurrent spontaneous Oral contraceptives or hormone replacement Sepsis (< 1 month) Serious lung disease, including pneumonia (< 1 month) Abnormal pulmonary function Acute myocardial infarction Congestive heart failure (< 1 month) History of inflammatory bowel disease Medical patient at bed rest Age 61-74 Arthroscopic surgery Major open surgery (> 45 min) Laparoscopic surgery (> 45 min) Malignancy Confined to bed (> 72 hours) Immobilizing plaster cast Central venous access Age >= 75 History of VTE Family history of VTE Factor V Leiden Prothrombin [id number] Lupus anticoagulant Anticardiolipin antibodies Elevated serum homocysteine Heparin-induced thrombocytopenia Other congenital or acquired thrombophilia Stroke (< 1 month) Elective arthroplasty Hip, pelvis, or leg fracture Acute spinal cord injury (< 1 month) Prophylaxis Regimen: Total Risk Factor Score Risk Level Prophylaxis Regimen 0-1 Low Early ambulation 2 Moderate Order ONE of the following: *Sequential Compression Device (SCD) *Heparin 5000 units SQ BID 3-4 Higher Order ONE of the following medications: *Heparin 5000 units SQ TID *Enoxaparin/Lovenox 40 mg SQ daily (WT < 150 kg, CrCl > 30 mL/min) *Enoxaparin/Lovenox 30 mg SQ daily (WT < 150 kg, CrCl > 10-29 mL/min) *Enoxaparin/Lovenox 30 mg SQ BID (WT < 150 kg, CrCl > 30 mL/min) AND/OR *Sequential Compression Device (SCD) 5 or more Highest Order ONE of the following medications: *Heparin 5000 units SQ TID (Preferred with Epidurals) *Enoxaparin/Lovenox 40 mg SQ daily (WT < 150 kg, CrCl > 30 mL/min) *Enoxaparin/Lovenox 30 mg SQ daily (WT < 150 kg, CrCl > 10-29 mL/min) *Enoxaparin/Lovenox 30 mg SQ BID (WT < 150 kg, CrCl > 30 mL/min) AND *Sequential Compression Device (SCD) Assessment and Plan - Assessment (1) Edema Code(s): R60.9 - Edema, unspecified Status: Acute Plan: will hold po Lasix change to iv Lasix for 3 doses follow labs (2) Cellulitis Code(s): L03.90 - Cellulitis, unspecified Status: Acute Plan: cellulitis left lower extremity clindamycin started in er will continue (3) CHF (congestive heart failure) Code(s): I50.9 - Heart failure, unspecified Status: Acute Plan: continue current medications as above IV Lasix follow labs (4) Diabetes Code(s): E11.9 - Type 2 diabetes mellitus without complications Status: Acute Plan: hold metformin as cr high will add sliding scale - Plan further plan as case develops Code Status: full Discussed Condition With: patient (3) CHF (congestive heart failure) Qualifiers: Heart failure chronicity: chronic
[2018-08-08] MEDS: Acetaminophen 325 MG Tablet PO PRN ×2 (01:18→16:48)
[2018-08-08] MEDS: Insulin NovoLOG Aspart Correctional Sugar Inj SQ SCH ×5 (03:18→20:59)
[2018-08-08] MEDS: Clindamycin 600 mg/NS Premix 600 MG/50 ML PIGGYBACK IV.SIG SCH ×3 (05:20→20:57)
[2018-08-08] MEDS: glipiZIDE 10 MG Tablet PO SCH ×2 (08:38→20:54)
[2018-08-08] MEDS: Carvedilol 12.5 MG Tablet PO SCH ×2 (08:40→20:54)
[2018-08-08] MEDS: dilTIAZem CD 180 MG Capsule PO SCH ×2 (08:41→20:55)
[2018-08-08] MEDS: Magnesium Oxide 400 MG Tablet PO SCH (08:42)
[2018-08-08] MEDS: Spironolactone 25 MG Tablet PO SCH ×2 (08:43→20:54)
[2018-08-08 09:39] LABS: Baso % (Auto) 0.1 % (0.0-2.0); Eos # (Auto) 0.1 th/mm3 (0.0-0.4); Eos % (Auto) 1.2 % (0.0-4.0); Hematocrit 22.6 % (35.0-46.0); Hemoglobin 7.6 gm/dL (11.6-15.3); Lymph # (Auto) 0.5 th/mm3 (1.0-4.8); Mean Corpuscular HGB Conc 33.7 % (32.0-36.0); Mean Corpuscular Hemoglobin 32.6 pg (27.0-34.0); Mean Corpuscular Volume 96.6 fL (80.0-100.0); Mean Platelet Volume 8.2 fL (7.0-11.0); Mono # (Auto) 1.2 th/mm3 (0.0-0.9); Mono % (Auto) 13.7 % (0.0-8.0); Neut # (Auto) 6.8 th/mm3 (1.8-7.7); Platelet Count 166 th/mm3 (150-450); Red Blood Count 2.34 mil/mm3 (4.00-5.30); Red Cell Distribution Width 17.5 % (11.6-17.2); White Blood Count 8.6 th/mm3 (4.0-11.0)
[2018-08-08 09:46] LABS: INR 3.2 Ratio
[2018-08-08 10:04] LABS: Albumin 2.6 g/dL (3.4-5.0); Anion Gap 8 meq/L (5-15); Aspartate Aminotransferase 28 U/L (15-37); Blood Urea Nitrogen 31 mg/dL (7-18); Calcium 8.4 mg/dL (8.5-10.1); Carbon Dioxide 30.1 meq/L (21.0-32.0); Chloride 99 meq/L (98-107); Glomerular Filtration Rate 34 mL/min (>89); Glucose,Random 97 mg/dL (74-106); Potassium 4.9 meq/L (3.5-5.1); Sodium 137 meq/L (136-145)
[2018-08-08 10:05] LABS: Alanine Aminotransferase 21 U/L (10-53)
[2018-08-08 10:07] LABS: Alkaline Phosphatase 171 U/L (45-117); Total Protein 6.1 g/dL (6.4-8.2)
--- NOTE | 2018-08-08 14:14 | ECG ---
Date Performed: 08/07/2018 Time Performed: 18:16:29 PTAGE: 78 years EKG: ATRIAL FIBRILLATION LEFT ANTERIOR FASCICULAR BLOCK POSSIBLE ANTERIOR MYOCARDIAL INFARCTION CONSIDER ANTERIOR [place], AGE UNDETERMINED ABNORMAL ECG PREVIOUS TRACING : 03/16/2018 17.50 DOCTOR: Reginaldo Pak Interpretating Date/Time 08/08/2018 14:13:24
--- NOTE | 2018-08-08 17:26 | P.PNIM ---
Subjective Interval history: Legs less swollen from admission. No new clinical complaints. Physical Exam Vital signs: 08/08/18 13:03 08/08/18 15:47 Temperature 98.0 F Pulse Rate 100 H 107 H Respiratory Rate 14 20 Blood Pressure 120/64 Pulse Oximetry 97 Narrative: GENERAL: This is a well-nourished, well-developed patient, in no apparent distress. CARDIOVASCULAR: Regular rate and rhythm without murmurs, gallops, or rubs. RESPIRATORY: Clear to auscultation. Breath sounds equal bilaterally. No wheezes , rales, or rhonchi. GASTROINTESTINAL: Abdomen soft, non-tender, nondistended. Normal active bowel sounds MUSCULOSKELETAL: Extremities without clubbing, cyanosis, or edema. NEURO: Alert & Oriented x4 to person, place, time, situation. Moves all ext x4 Results - Labs CBC & Chem 7: 08/12/18 06:35 08/12/18 06:35 - Imaging Chest X-Ray 08/07/18 16:27 Mild cardiomegaly with mild pulmonary vascular engorgement. Assessment and Plan - Assessment (1) CHF (congestive heart failure) Code(s): I50.9 - Heart failure, unspecified Status: Acute Plan: - pleasant 78 y/o F with h/o CHF - pt states that she has been compliant with her outpt PO lasix regimen - Pt presented to the ER with c/o worsening LE edema and SOB - CXR (08/07) --> volume overload - BNP 401 (08/07) - IV lasix 40mg BID - continue spironolactone and BB - supportive care - 2D echo (07/06/14): - EF 51% - LVH - Mitral annular calcification, mild to moderate mitral regurgitation - Aortic cusp calcification - Left atrial enlargement - Trace pulmonic insufficiency - Moderate tricuspid regurgitation with RVSP of 38mmHg Cellulitis/tinea cruris - thick layer of desitin from home at pt's groin - skin appears to have tinea have possible secondary cellulitis - continue IV clindamycin - nystatin powder Anemia - CBC 7.6 (08/08), 7.6 (08/09) - EGD with GI, once INR below 1.5 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 Pt did NOT f/u with General Surgery. - Consult placed to General Surgery DM2 - glucotrol - SSI - observe Afib, chronic - controlled - BB - coumadin on hold COPD - ventolin MDI (2) Edema Code(s): R60.9 - Edema, unspecified Status: Acute (3) Cellulitis Code(s): L03.90 - Cellulitis, unspecified Status: Acute (4) Diabetes Code(s): E11.9 - Type 2 diabetes mellitus without complications Status: Acute (1) CHF (congestive heart failure) Qualifiers: Heart failure chronicity: chronic
[2018-08-08 18:23] LABS: Iron 48 mcg/dL (50-170)
[2018-08-08 18:48] LABS: % Iron Saturation 14.6 % (20-50); Ferritin 25 ng/mL (8-252); Total Iron Binding Capacity 329 mcg/dL (250-450); Vitamin B12 995 pg/mL (193-986)
[2018-08-08] MEDS ORDERED: Heparin - SQ 10,000 UNITS/ML Vial SQ ONE (19:15)
[2018-08-08] MEDS: Nystatin 100,000 UNITS/GM Powder 15 GM Bottle TOPICAL SCH ×2 (19:19→20:58)
[2018-08-09] MEDS: Acetaminophen 325 MG Tablet PO PRN ×2 (02:26→11:58)
[2018-08-09] MEDS: Clindamycin 600 mg/NS Premix 600 MG/50 ML PIGGYBACK IV.SIG SCH ×3 (03:33→20:00)
[2018-08-09] MEDS: Insulin NovoLOG Aspart Correctional Sugar Inj SQ SCH ×5 (03:49→21:51)
[2018-08-09 07:17] LABS: Baso % (Auto) 0.2 % (0.0-2.0); Eos # (Auto) 0.1 th/mm3 (0.0-0.4); Eos % (Auto) 1.1 % (0.0-4.0); Hematocrit 22.9 % (35.0-46.0); Hemoglobin 7.6 gm/dL (11.6-15.3); Lymph # (Auto) 0.7 th/mm3 (1.0-4.8); Lymph % (Auto) 7.2 % (9.0-44.0); Mean Corpuscular HGB Conc 33.2 % (32.0-36.0); Mean Corpuscular Hemoglobin 32.4 pg (27.0-34.0); Mean Corpuscular Volume 97.7 fL (80.0-100.0); Mean Platelet Volume 8.7 fL (7.0-11.0); Mono # (Auto) 1.4 th/mm3 (0.0-0.9); Mono % (Auto) 15.4 % (0.0-8.0); Neut # (Auto) 7.1 th/mm3 (1.8-7.7); Neut % (Auto) 76.1 % (16.0-70.0); Platelet Count 148 th/mm3 (150-450); Red Blood Count 2.35 mil/mm3 (4.00-5.30); Red Cell Distribution Width 17.2 % (11.6-17.2); White Blood Count 9.4 th/mm3 (4.0-11.0)
[2018-08-09 07:23] LABS: INR 2.8 Ratio; Prothrombin Time 28.3 sec (9.8-11.6)
[2018-08-09 07:43] LABS: Calcium 8.1 mg/dL (8.5-10.1); Carbon Dioxide 29.5 meq/L (21.0-32.0); Potassium 4.7 meq/L (3.5-5.1)
--- NOTE | 2018-08-09 08:51 | P.CONGI ---
History of Present Illness Consult date: 08/09/18 Chief complaint: CHF Exacerbation; Cellulitis History of Present Illness: This is 78-year-old female with hx of GIST, CHF, A-fib on Coumadin, on hold for now who presents to the ED with complaint of worsening left lower extremity edema, cellulitis left lower extremity and bilateral groin cellulitis. GI consulted for anemia. Patient denies nausea, vomiting, hematemesis, abd pain, melena or hematochezia. Patient is known to our practice from previous encounters. for evaluation of anemia. EGD/EUS/FNA on --->Large submucosal gastric mass probable GIST or leiomyoma. Large duodenal bulb ulcer, bx showed acute duodenitis and mucosal erosion, cytology revealed fragments of bland spindle cell lesion, suggestive fo GIST. EGD on 06/05 showed The esophagus appeared normal A large subepithelial lesion was located in the gastric antrum, Normal duodenal mucosa in the bulb and second portion of the duodenum, no evidence of ulcer seen previously Retroflexion was performed and was normal. Colonoscopy on 03/19/18 ---> A ascending colon lipoma.Colon polyps descending colon and sigmoid.Diverticulosis left colon. Internal hemorrhoids. Descending colon polyp bx tubular adenoma, ascending colon bx lipoma, sigmoid polyp bx hyperplastic changes. <Andrew Black - Last Filed: 08/12/18 19:15> Review of Systems All other systems reviewed negative except as stated in HPI <Andrew Black - Last Filed: 08/12/18 19:15> PMFSH - Medical History Medical History: Medical History (Last Reviewed 08/09/18 @ 08:48 by Florentin Maldonado) A-fib Benign carcinoid tumor of other sites CHF (congestive heart failure) COPD (chronic obstructive pulmonary disease) Diabetes History of bleeding ulcers Hypertension Presence of orthopedic joint implant - Surgical History Surgical History: Surgical History (Last Reviewed 08/09/18 @ 08:48 by Florentin Maldonado) History of open reduction and internal fixation (ORIF) procedure Hx laparoscopic cholecystectomy Hx of appendectomy Hx of cataract extraction Hx of total knee replacement <Malka Freeman - Last Filed: 08/09/18 17:48> - History History Provided By: Patient - Medical History Medical History: Medical History (Last Reviewed 08/12/18 @ 08:03 by [employer] [employer]) A-fib Benign carcinoid tumor of other sites CHF (congestive heart failure) COPD (chronic obstructive pulmonary disease) Diabetes Ex-cigarette smoker GIST (gastrointestinal stromal tumor), non-malignant History of bleeding ulcers Hypertension ERNESTO (obstructive sleep apnea) Presence of orthopedic joint implant - Surgical History Surgical History: Surgical History (Last Reviewed 08/12/18 @ 08:03 by [employer] [employer]) History of open reduction and internal fixation (ORIF) procedure Hx laparoscopic cholecystectomy Hx of appendectomy Hx of cataract extraction Hx of total knee replacement - Tobacco History Second Hand Smoke Exposure: No Tobacco Use In Past 30 Days: Yes Smoking Status: Former smoker Tobacco Type: Cigarettes - Alcohol History How Often Do You Have a Drink Containing Alcohol: Never - Substance Use History Substance History: No History of Abuse - Travel History Recent Travel in the [place] Within the Last 8 Weeks: No Recent Travel Out of the Country Within the Last 8 Weeks: No - Immunization History Tetanus Immunization: >5 Years Hx Influenza Vaccine This Season: No <Andrew Black - Last Filed: 08/12/18 19:15> Medications and Allergies Active Medications: Active Medications Acetaminophen (Tylenol) 650 mg PO Q8H PRN PRN Reason: TEMPERATURE > 100.5 F Last Admin: 08/09/18 11:58 Dose: 650 mg Albuterol (Ventolin Hfa Inh) 2 puff INH Q6H PRN PRN Reason: SHORTNESS OF BREATH Bisacodyl (Dulcolax Supp) 10 mg RECTAL DAILY PRN PRN Reason: SEVERE CONSITIPATION Carvedilol (Coreg) 25 mg PO BID [facility] Last Admin: 08/09/18 09:26 Dose: 25 mg Dextrose (D50w Vial) 50 ml IV.PUSH UNSCH PRN PRN Reason: PER HYPOGLYCEMIA PROTOCOL Diltiazem HCl (Cardizem Cd 24hr) 180 mg PO BID [facility] Last Admin: 08/09/18 09:26 Dose: 180 mg Furosemide (Lasix Inj) 40 mg IV.PUSH BID@0900,1800 [facility] Last Admin: 08/09/18 17:46 Dose: 40 mg Glipizide (Glucotrol) 15 mg PO BID [facility] Last Admin: 08/09/18 09:27 Dose: 15 mg Glucagon (Glucagon Inj) 1 mg OTHER PRN PRN PRN Reason: for Hypoglycemia Protocol Sodium Chloride (Ns Inj) 500 mls @ 0 mls/hr IV.SIG BOLUS [facility] Clindamycin/Sodium Chloride (Cleocin 600 Mg/Ns Premix) 600 mg in 50 mls @ 100 mls/hr IV.SIG Q8H [facility] Stop: 08/10/18 23:59 Last Infusion: 08/09/18 14:50 Dose: Infused Sodium Chloride (Ns Inj) 250 mls @ 15 mls/hr IV.SIG ONCE [facility] Stop: 08/10/18 09:39 Insulin Aspart (Novolog Insulin Correctional Sugar Inj) 0 unit SQ ACHS AND 3AM IRMA; Protocol Last Admin: 08/09/18 11:57 Dose: Not Given Ipratropium [place] (Atrovent Neb) 0.5 mg NEB TID NEB [facility] Last Admin: 08/09/18 14:08 Dose: 0.5 mg Magnesium Oxide (Mag-Ox) 400 mg PO DAILY [facility] Last Admin: 08/09/18 09:27 Dose: 400 mg Nystatin (Mycostatin Powder) 1 applicatio TOPICAL QID [facility] Last Admin: 08/09/18 17:46 Dose: 1 applicatio Ondansetron HCl (Zofran Inj) 4 mg IV.PUSH Q6H PRN PRN Reason: NAUSEA OR VOMITING Pantoprazole Sodium (Protonix) 40 mg PO DAILY [facility] Last Admin: 08/09/18 09:27 Dose: 40 mg Sennosides (Senokot) 17.2 mg PO Q12H PRN PRN Reason: Moderate Constipation Spironolactone (Aldactone) 25 mg PO BID [facility] Last Admin: 08/09/18 09:26 Dose: 25 mg <Malka Freeman - Last Filed: 08/09/18 17:48> Active Medications: Active Medications Acetaminophen (Tylenol) 650 mg PO Q8H PRN PRN Reason: TEMPERATURE > 100.5 F Last Admin: 08/09/18 02:26 Dose: 650 mg Albuterol (Ventolin Hfa Inh) 2 puff INH Q6H PRN PRN Reason: SHORTNESS OF BREATH Bisacodyl (Dulcolax Supp) 10 mg RECTAL DAILY PRN PRN Reason: SEVERE CONSITIPATION Carvedilol (Coreg) 25 mg PO BID [facility] Last Admin: 08/08/18 20:54 Dose: 25 mg Dextrose (D50w Vial) 50 ml IV.PUSH UNSCH PRN PRN Reason: PER HYPOGLYCEMIA PROTOCOL Diltiazem HCl (Cardizem Cd 24hr) 180 mg PO BID [facility] Last Admin: 08/08/18 20:55 Dose: 180 mg Furosemide (Lasix Inj) 40 mg IV.PUSH BID@0900,1800 [facility] Last Admin: 08/08/18 19:18 Dose: 40 mg Glipizide (Glucotrol) 15 mg PO BID [facility] Last Admin: 08/08/18 20:54 Dose: 15 mg Glucagon (Glucagon Inj) 1 mg OTHER PRN PRN PRN Reason: for Hypoglycemia Protocol Sodium Chloride (Ns Inj) 500 mls @ 0 mls/hr IV.SIG BOLUS [facility] Clindamycin/Sodium Chloride (Cleocin 600 Mg/Ns Premix) 600 mg in 50 mls @ 100 mls/hr IV.SIG Q8H [facility] Stop: 08/09/18 19:59 Last Infusion: 08/09/18 04:51 Dose: Infused Insulin Aspart (Novolog Insulin Correctional Sugar Inj) 0 unit SQ ACHS AND 3AM IRMA; Protocol Last Admin: 08/09/18 03:49 Dose: Not Given Ipratropium [place] (Atrovent Neb) 0.5 mg NEB TID NEB [facility] Last Admin: 08/09/18 08:03 Dose: 0.5 mg Magnesium Oxide (Mag-Ox) 400 mg PO DAILY [facility] Last Admin: 08/08/18 08:42 Dose: 400 mg Nystatin (Mycostatin Powder) 1 applicatio TOPICAL QID [facility] Last Admin: 08/08/18 20:58 Dose: 1 applicatio Ondansetron HCl (Zofran Inj) 4 mg IV.PUSH Q6H PRN PRN Reason: NAUSEA OR VOMITING Pantoprazole Sodium (Protonix) 40 mg PO DAILY [facility] Last Admin: 08/08/18 08:38 Dose: 40 mg Sennosides (Senokot) 17.2 mg PO Q12H PRN PRN Reason: Moderate Constipation Spironolactone (Aldactone) 25 mg PO BID [facility] Last Admin: 08/08/18 20:54 Dose: 25 mg <Andrew Black - Last Filed: 08/12/18 19:15> Allergies Allergy/AdvReac Type Severity Reaction Status Date / Time latex Allergy Intermediate RASH Verified 06/05/18 09:17 adhesive AdvReac Intermediate RASH, Verified 06/05/18 09:17 REDNESS milk AdvReac Intermediate DIARRHEA, Verified 06/05/18 09:17 GAS mushroom AdvReac Hives Verified 08/07/18 16:09 pepper (genus Capsicum) AdvReac Hives Verified 08/07/18 16:09 Home Medications Medication Instructions Recorded Confirmed Type albuterol sulfate [Ventolin HFA] 2 puff INHALATION Q4-6H PRN 06/03/18 08/07/18 History carvedilol 25 mg PO BID 06/03/18 08/07/18 History diltiazem HCl 180 mg PO BID 06/03/18 08/07/18 History furosemide 40 mg PO DAILY 06/03/18 08/07/18 History ipratropium bromide [Atrovent HFA] 2 puff INHALATION TID 06/03/18 08/07/18 History magnesium oxide 400 mg PO DAILY 06/03/18 08/07/18 History pantoprazole 40 mg PO DAILY 06/03/18 08/07/18 History spironolactone 25 mg PO BID 06/03/18 08/07/18 History warfarin 2.5 mg PO DIRECTED 06/03/18 08/07/18 History warfarin [Coumadin] 5 mg PO DIRECTED 06/03/18 08/07/18 History Exam Vital signs: Vital Signs 08/08/18 19:28 08/08/18 19:39 08/08/18 20:05 Temperature 98.0 F 96.7 F L Pulse Rate 121 H 107 H 112 H Respiratory Rate 16 20 18 Blood Pressure 120/64 99/73 L Pulse Oximetry 99 99 98 08/08/18 23:51 08/09/18 03:52 08/09/18 04:00 Temperature 97.6 F 97.7 F 97.7 F Pulse Rate 111 H 101 H 101 H Respiratory Rate 20 20 18 Blood Pressure 97/59 L 104/60 104/60 Pulse Oximetry 97 97 97 08/09/18 08:00 08/09/18 08:05 08/09/18 08:32 Temperature 97.9 F Pulse Rate 108 H 70 Respiratory Rate 22 20 Blood Pressure 100/68 Pulse Oximetry 96 98 96 08/09/18 08:55 08/09/18 13:06 08/09/18 14:10 Temperature 98.6 F Pulse Rate 115 H 100 H 76 Respiratory Rate 20 16 Blood Pressure 108/62 Pulse Oximetry 98 08/09/18 16:02 Temperature 97.6 F Pulse Rate 85 Respiratory Rate 16 Blood Pressure 106/77 Pulse Oximetry 91 L Intake & Output 08/08/18 08/09/18 08/09/18 18:59 06:59 18:59 Intake Total 50 / 50 100 / 100 50 / 50 Balance 50 / 50 100 / 100 50 / 50 Weight 56.699 kg Intake: IV 50 / 50 100 / 100 50 / 50 Cleocin 600 mg/NS Premix 600 mg 50 / 50 100 / 100 50 / 50 In 50 ml @ 100 mls/hr IV.SIG Q8H [facility] Rx#:[id number] Oral 0 / 0 Other: # Voids 4 1 Date of Last Bowel Movement 08/07/18 08/09/18 08/09/18 <Malka Freeman - Last Filed: 08/09/18 17:48> Vital signs: Vital Signs 08/08/18 12:00 08/08/18 13:03 08/08/18 15:47 Temperature 98.6 F 98.0 F Pulse Rate 115 H 100 H 107 H Respiratory Rate 16 14 20 Blood Pressure 112/55 L 120/64 Pulse Oximetry 99 97 08/08/18 19:28 08/08/18 19:39 08/08/18 20:05 Temperature 98.0 F 96.7 F L Pulse Rate 121 H 107 H 112 H Respiratory Rate 16 20 18 Blood Pressure 120/64 99/73 L Pulse Oximetry 99 99 98 08/08/18 23:51 08/09/18 03:52 08/09/18 04:00 Temperature 97.6 F 97.7 F 97.7 F Pulse Rate 111 H 101 H 101 H Respiratory Rate 20 20 18 Blood Pressure 97/59 L 104/60 104/60 Pulse Oximetry 97 97 97 08/09/18 08:05 Temperature Pulse Rate 108 H Respiratory Rate 22 Blood Pressure Pulse Oximetry 98 Intake & Output 08/08/18 08/09/18 08/09/18 18:59 06:59 18:59 Intake Total 50 / 50 100 / 100 Balance 50 / 50 100 / 100 Weight 56.699 kg Intake: IV 50 / 50 100 / 100 Cleocin 600 mg/NS Premix 600 mg 50 / 50 100 / 100 In 50 ml @ 100 mls/hr IV.SIG Q8H [facility] Rx#:[id number] Oral 0 / 0 Other: # Voids 4 1 Date of Last Bowel Movement 08/07/18 08/09/18 - Constitutional no acute distress - Routine HEENT Exam Head: Present: normocephalic - Routine Respiratory Exam Present: CTA bilaterally - Routine Cardiovascular Exam Present: RRR - Routine Abdominal Exam Present: soft, normoactive bowel sounds. Absent: tenderness, distended - Routine Skin Exam Present: erythema, wounds, rash, ecchymosis - Routine Neurological Exam Present: alert, oriented X3 <Andrew Black - Last Filed: 08/12/18 19:15> Results - Labs CBC & Chem 7: 08/09/18 06:33 08/09/18 06:33 Labs: Laboratory Results - last 24 hr 08/08/18 08/08/18 08/08/18 09:10 17:55 20:53 WBC RBC Hgb Hct MCV MCH MCHC RDW Plt Count MPV Neut % (Auto) Lymph % (Auto) [place] % (Auto) Eos % (Auto) Baso % (Auto) Neut # (Auto) Lymph # (Auto) [place] # (Auto) Eos # (Auto) Baso # (Auto) WBC Differential Differential Comment PT INR Sodium Potassium Chloride Carbon Dioxide Anion Gap BUN Creatinine Estimated GFR POC Glucose 116 H 130 H Random Glucose Calcium Iron 48 L TIBC 329 % Saturation 14.6 L Ferritin 25 Vitamin B12 995 H Folate Greater than 20.0 H TSH Free T4 08/09/18 08/09/18 08/09/18 02:29 06:33 06:33 WBC 9.4 RBC 2.35 L Hgb 7.6 L Hct 22.9 L MCV 97.7 MCH 32.4 MCHC 33.2 RDW 17.2 Plt Count 148 L MPV 8.7 Neut % (Auto) 76.1 H Lymph % (Auto) 7.2 L [place] % (Auto) 15.4 H Eos % (Auto) 1.1 Baso % (Auto) 0.2 Neut # (Auto) 7.1 Lymph # (Auto) 0.7 L [place] # (Auto) 1.4 H Eos # (Auto) 0.1 Baso # (Auto) 0.0 WBC Differential . Differential Comment Auto diff final PT INR Sodium 136 Potassium 4.7 Chloride 99 Carbon Dioxide 29.5 Anion Gap 8 BUN 31 H Creatinine 1.50 H Estimated GFR 34 L POC Glucose 82 Random Glucose 62 L Calcium 8.1 L Iron TIBC % Saturation Ferritin Vitamin B12 Folate TSH Free T4 08/09/18 08/09/18 08/09/18 06:33 06:33 08:38 WBC RBC Hgb Hct MCV MCH MCHC RDW Plt Count MPV Neut % (Auto) Lymph % (Auto) [place] % (Auto) Eos % (Auto) Baso % (Auto) Neut # (Auto) Lymph # (Auto) [place] # (Auto) Eos # (Auto) Baso # (Auto) WBC Differential Differential Comment PT 28.3 H INR 2.8 Sodium Potassium Chloride Carbon Dioxide Anion Gap BUN Creatinine Estimated GFR POC Glucose 56 L Random Glucose Calcium Iron TIBC % Saturation Ferritin Vitamin B12 Folate TSH 1.440 Free T4 1.07 08/09/18 08/09/18 08/09/18 09:05 11:54 16:43 WBC RBC Hgb Hct MCV MCH MCHC RDW Plt Count MPV Neut % (Auto) Lymph % (Auto) [place] % (Auto) Eos % (Auto) Baso % (Auto) Neut # (Auto) Lymph # (Auto) [place] # (Auto) Eos # (Auto) Baso # (Auto) WBC Differential Differential Comment PT INR Sodium Potassium Chloride Carbon Dioxide Anion Gap BUN Creatinine Estimated GFR POC Glucose 78 111 H 202 H Random Glucose Calcium Iron TIBC % Saturation Ferritin Vitamin B12 Folate TSH Free T4 <MarshallectorMalka - Last Filed: 08/09/18 17:48> - Labs CBC & Chem 7: 08/12/18 06:35 08/12/18 06:35 Labs: Laboratory Results - last 24 hr 08/08/18 08/08/18 08/08/18 09:10 09:10 09:10 WBC 8.6 RBC 2.34 L Hgb 7.6 L Hct 22.6 L MCV 96.6 MCH 32.6 MCHC 33.7 RDW 17.5 H Plt Count 166 MPV 8.2 Neut % (Auto) 79.0 H Lymph % (Auto) 6.0 L [place] % (Auto) 13.7 H Eos % (Auto) 1.2 Baso % (Auto) 0.1 Neut # (Auto) 6.8 Lymph # (Auto) 0.5 L [place] # (Auto) 1.2 H Eos # (Auto) 0.1 Baso # (Auto) 0.0 WBC Differential . Differential Comment Auto diff final PT 32.0 H INR 3.2 Sodium 137 Potassium 4.9 Chloride 99 Carbon Dioxide 30.1 Anion Gap 8 BUN 31 H Creatinine 1.50 H Estimated GFR 34 L POC Glucose Random Glucose 97 Calcium 8.4 L Iron TIBC % Saturation Ferritin Total Bilirubin 0.6 AST 28 ALT 21 Alkaline Phosphatase 171 H Total Protein 6.1 L D Albumin 2.6 L Vitamin B12 Folate 08/08/18 08/08/18 08/08/18 09:10 12:24 17:55 WBC RBC Hgb Hct MCV MCH MCHC RDW Plt Count MPV Neut % (Auto) Lymph % (Auto) [place] % (Auto) Eos % (Auto) Baso % (Auto) Neut # (Auto) Lymph # (Auto) [place] # (Auto) Eos # (Auto) Baso # (Auto) WBC Differential Differential Comment PT INR Sodium Potassium Chloride Carbon Dioxide Anion Gap BUN Creatinine Estimated GFR POC Glucose 101 116 H Random Glucose Calcium Iron 48 L TIBC 329 % Saturation 14.6 L Ferritin 25 Total Bilirubin AST ALT Alkaline Phosphatase Total Protein Albumin Vitamin B12 995 H Folate Greater than 20.0 H 08/08/18 08/09/18 08/09/18 20:53 02:29 06:33 WBC 9.4 RBC 2.35 L Hgb 7.6 L Hct 22.9 L MCV 97.7 MCH 32.4 MCHC 33.2 RDW 17.2 Plt Count 148 L MPV 8.7 Neut % (Auto) 76.1 H Lymph % (Auto) 7.2 L [place] % (Auto) 15.4 H Eos % (Auto) 1.1 Baso % (Auto) 0.2 Neut # (Auto) 7.1 Lymph # (Auto) 0.7 L [place] # (Auto) 1.4 H Eos # (Auto) 0.1 Baso # (Auto) 0.0 WBC Differential . Differential Comment Auto diff final PT INR Sodium Potassium Chloride Carbon Dioxide Anion Gap BUN Creatinine Estimated GFR POC Glucose 130 H 82 Random Glucose Calcium Iron TIBC % Saturation Ferritin Total Bilirubin AST ALT Alkaline Phosphatase Total Protein Albumin Vitamin B12 Folate 08/09/18 08/09/18 06:33 06:33 WBC RBC Hgb Hct MCV MCH MCHC RDW Plt Count MPV Neut % (Auto) Lymph % (Auto) [place] % (Auto) Eos % (Auto) Baso % (Auto) Neut # (Auto) Lymph # (Auto) [place] # (Auto) Eos # (Auto) Baso # (Auto) WBC Differential Differential Comment PT 28.3 H INR 2.8 Sodium 136 Potassium 4.7 Chloride 99 Carbon Dioxide 29.5 Anion Gap 8 BUN 31 H Creatinine 1.50 H Estimated GFR 34 L POC Glucose Random Glucose 62 L Calcium 8.1 L Iron TIBC % Saturation Ferritin Total Bilirubin AST ALT Alkaline Phosphatase Total Protein Albumin Vitamin B12 Folate <Andrew Black - Last Filed: 08/12/18 19:15> Assessment and Plan - Attending Attestation seen, examined agree with above <Malka Freeman - Last Filed: 08/09/18 17:48> - Plan - Anemia/acute on chronic hgb today 7.6- Patient is known to our practice from previous encounters for evaluation of anemia. 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 Large duodenal bulb ulcer, bx showed acute duodenitis and mucosal erosion, cytology revealed fragments of bland spindle cell lesion, suggestive fo GIST. EGD on showed The esophagus appeared normal A large subepithelial lesion was located in the gastric antrum, Normal duodenal mucosa in the bulb and second portion of the duodenum, no evidence of ulcer seen previously Retroflexion was performed and was normal. Colonoscopy on 03/19/18 ---> A ascending colon lipoma.Colon polyps descending colon and sigmoid.Diverticulosis left colon. Internal hemorrhoids. Descending colon polyp bx tubular adenoma, ascending colon bx lipoma, sigmoid polyp bx hyperplastic changes. Patient denies nausea, vomiting, hematemesis, abd pain, melena or hematochezia. - Hx of GIST- as above - cellulitis left lower extremity and bilateral groin cellulitis. on abx - A-fib on Coumadin, INR today 2.8, Coumadin on hold - Hx of CHF, DM Plan: - Healthy diet - EGD once INR is < 1.5 - Consider GS consult for GIST - Monitor hh - Transfuse as needed - Supportive care - Pt seen and examined by Dr. Freeman and myself and this note is written on her behalf. <Andrew Black - Last Filed: 08/12/18 19:15>
[2018-08-09] MEDS: dilTIAZem CD 180 MG Capsule PO SCH ×2 (09:26→21:49)
[2018-08-09] MEDS: Carvedilol 12.5 MG Tablet PO SCH ×2 (09:26→21:49)
[2018-08-09] MEDS: Spironolactone 25 MG Tablet PO SCH ×2 (09:26→21:48)
[2018-08-09] MEDS: glipiZIDE 10 MG Tablet PO SCH ×2 (09:27→21:49)
[2018-08-09] MEDS: Magnesium Oxide 400 MG Tablet PO SCH (09:27)
[2018-08-09] MEDS: Nystatin 100,000 UNITS/GM Powder 15 GM Bottle TOPICAL SCH ×4 (09:27→21:50)
[2018-08-09] MEDS ORDERED: Phytonadione 5 MG/SWFI 5 ML Oral Syringe PO ONE (15:15)
--- NOTE | 2018-08-09 15:38 | P.PNIM ---
Subjective Interval history: No new complaints. Physical Exam Vital signs: Vital Signs 08/08/18 15:47 08/08/18 19:28 08/08/18 19:39 Temperature 98.0 F 98.0 F Pulse Rate 107 H 121 H 107 H Respiratory Rate 20 16 20 Blood Pressure 120/64 120/64 Pulse Oximetry 97 99 99 08/08/18 20:05 08/08/18 23:51 08/09/18 03:52 Temperature 96.7 F L 97.6 F 97.7 F Pulse Rate 112 H 111 H 101 H Respiratory Rate 18 20 20 Blood Pressure 99/73 L 97/59 L 104/60 Pulse Oximetry 98 97 97 08/09/18 04:00 08/09/18 08:00 08/09/18 08:05 Temperature 97.7 F Pulse Rate 101 H 108 H Respiratory Rate 18 22 Blood Pressure 104/60 Pulse Oximetry 97 96 98 08/09/18 08:32 08/09/18 08:55 08/09/18 13:06 Temperature 97.9 F 98.6 F Pulse Rate 70 115 H 100 H Respiratory Rate 20 20 Blood Pressure 100/68 108/62 Pulse Oximetry 96 98 08/09/18 14:10 Temperature Pulse Rate 76 Respiratory Rate 16 Blood Pressure Pulse Oximetry Intake & Output 08/08/18 08/09/18 08/09/18 18:59 06:59 18:59 Intake Total 50 / 50 100 / 100 50 / 50 Balance 50 / 50 100 / 100 50 / 50 Weight 56.699 kg Intake: IV 50 / 50 100 / 100 50 / 50 Cleocin 600 mg/NS Premix 600 mg 50 / 50 100 / 100 50 / 50 In 50 ml @ 100 mls/hr IV.SIG Q8H [facility] Rx#:[id number] Oral 0 / 0 Other: # Voids 4 1 Date of Last Bowel Movement 08/07/18 08/09/18 08/09/18 Results - Labs CBC & Chem 7: 08/12/18 06:35 08/12/18 06:35 Laboratory Results - last 24 hr 08/08/18 08/08/18 08/08/18 09:10 17:55 20:53 WBC RBC Hgb Hct MCV MCH MCHC RDW Plt Count MPV Neut % (Auto) Lymph % (Auto) [place] % (Auto) Eos % (Auto) Baso % (Auto) Neut # (Auto) Lymph # (Auto) [place] # (Auto) Eos # (Auto) Baso # (Auto) WBC Differential Differential Comment PT INR Sodium Potassium Chloride Carbon Dioxide Anion Gap BUN Creatinine Estimated GFR POC Glucose 116 H 130 H Random Glucose Calcium Iron 48 L TIBC 329 % Saturation 14.6 L Ferritin 25 Vitamin B12 995 H Folate Greater than 20.0 H 08/09/18 08/09/18 08/09/18 02:29 06:33 06:33 WBC 9.4 RBC 2.35 L Hgb 7.6 L Hct 22.9 L MCV 97.7 MCH 32.4 MCHC 33.2 RDW 17.2 Plt Count 148 L MPV 8.7 Neut % (Auto) 76.1 H Lymph % (Auto) 7.2 L [place] % (Auto) 15.4 H Eos % (Auto) 1.1 Baso % (Auto) 0.2 Neut # (Auto) 7.1 Lymph # (Auto) 0.7 L [place] # (Auto) 1.4 H Eos # (Auto) 0.1 Baso # (Auto) 0.0 WBC Differential . Differential Comment Auto diff final PT INR Sodium 136 Potassium 4.7 Chloride 99 Carbon Dioxide 29.5 Anion Gap 8 BUN 31 H Creatinine 1.50 H Estimated GFR 34 L POC Glucose 82 Random Glucose 62 L Calcium 8.1 L Iron TIBC % Saturation Ferritin Vitamin B12 Folate 08/09/18 08/09/18 08/09/18 06:33 08:38 09:05 WBC RBC Hgb Hct MCV MCH MCHC RDW Plt Count MPV Neut % (Auto) Lymph % (Auto) [place] % (Auto) Eos % (Auto) Baso % (Auto) Neut # (Auto) Lymph # (Auto) [place] # (Auto) Eos # (Auto) Baso # (Auto) WBC Differential Differential Comment PT 28.3 H INR 2.8 Sodium Potassium Chloride Carbon Dioxide Anion Gap BUN Creatinine Estimated GFR POC Glucose 56 L 78 Random Glucose Calcium Iron TIBC % Saturation Ferritin Vitamin B12 Folate 08/09/18 11:54 WBC RBC Hgb Hct MCV MCH MCHC RDW Plt Count MPV Neut % (Auto) Lymph % (Auto) [place] % (Auto) Eos % (Auto) Baso % (Auto) Neut # (Auto) Lymph # (Auto) [place] # (Auto) Eos # (Auto) Baso # (Auto) WBC Differential Differential Comment PT INR Sodium Potassium Chloride Carbon Dioxide Anion Gap BUN Creatinine Estimated GFR POC Glucose 111 H Random Glucose Calcium Iron TIBC % Saturation Ferritin Vitamin B12 Folate Assessment and Plan - Assessment (1) CHF (congestive heart failure) Code(s): I50.9 - Heart failure, unspecified Status: Acute Plan: - pleasant 78 y/o F with h/o CHF - pt states that she has been compliant with her outpt PO lasix regimen - Pt presented to the ER with c/o worsening LE edema and SOB - CXR (08/07) --> volume overload - BNP 401 (08/07) - IV lasix 40mg BID - continue spironolactone and BB - supportive care - 2D echo (07/06/14): - EF 51% - LVH - Mitral annular calcification, mild to moderate mitral regurgitation - Aortic cusp calcification - Left atrial enlargement - Trace pulmonic insufficiency - Moderate tricuspid regurgitation with RVSP of 38mmHg - 2D echo (02/25/18) - EF 50% - LVH, mild - aortic valve mild stenosis - Mitral valve mild annula calcification, mild regurg - Tricuspid Valve mild regurg Cellulitis/tinea cruris - improving - thick layer of desitin from home at pt's groin - skin appears to have tinea have possible secondary cellulitis - continue IV clindamycin - nystatin powder Anemia - CBC 7.6 (08/08), 7.6 (08/09) - EGD with GI, once INR below 1.5 GIST Tumor - pathology reports from 03/18 sample final diagnosis: submucosal gastric mass, fine needle aspiration: Fragments of bland spindle cell lesion, suggestive of gastrointestinal Stromal Tumor (GIST) - pathology final diagnosis 03/18 sample small intestine, duodenal bulb, biopsy: - acute duodenitis and mucosal erosion - Pt instructed to f/u with General surgery 1 month after discharge February 2018. Pt did NOT f/u with General Surgery. - Consult placed to General Surgery DM2 - glucotrol - SSI - observe Afib, chronic - controlled - BB - coumadin on hold COPD - ventolin MDI (2) Edema Code(s): R60.9 - Edema, unspecified Status: Acute (3) Cellulitis Code(s): L03.90 - Cellulitis, unspecified Status: Acute (4) Diabetes Code(s): E11.9 - Type 2 diabetes mellitus without complications Status: Acute (1) CHF (congestive heart failure) Qualifiers: Heart failure chronicity: chronic
[2018-08-09] MEDS ORDERED: Sodium Chlor 0.9% Inj 250 ML IV.SIG SCH (17:00)
[2018-08-09 17:16] LABS: Free T4 (Free Thyroxine) 1.07 ng/dL (0.76-1.46); Thyroid Stimulating Hormone 1.44 uIU/mL (0.358-3.740)
[2018-08-10] MEDS: Acetaminophen 325 MG Tablet PO PRN ×3 (01:03→22:49)
[2018-08-10] MEDS: Clindamycin 600 mg/NS Premix 600 MG/50 ML PIGGYBACK IV.SIG SCH ×3 (05:30→22:36)
[2018-08-10] MEDS: Insulin NovoLOG Aspart Correctional Sugar Inj SQ SCH ×5 (06:46→22:38)
[2018-08-10 07:40] LABS: Baso % (Auto) 0.2 % (0.0-2.0); Eos # (Auto) 0.1 th/mm3 (0.0-0.4); Eos % (Auto) 1.7 % (0.0-4.0); Hemoglobin 7.7 gm/dL (11.6-15.3); Lymph # (Auto) 0.6 th/mm3 (1.0-4.8); Lymph % (Auto) 7.6 % (9.0-44.0); Mean Corpuscular HGB Conc 33.4 % (32.0-36.0); Mean Corpuscular Hemoglobin 32.1 pg (27.0-34.0); Mean Corpuscular Volume 96.2 fL (80.0-100.0); Mean Platelet Volume 8.3 fL (7.0-11.0); Mono # (Auto) 1.1 th/mm3 (0.0-0.9); Mono % (Auto) 14.5 % (0.0-8.0); Neut # (Auto) 5.9 th/mm3 (1.8-7.7); Platelet Count 141 th/mm3 (150-450); Red Blood Count 2.39 mil/mm3 (4.00-5.30); Red Cell Distribution Width 18.8 % (11.6-17.2); White Blood Count 7.8 th/mm3 (4.0-11.0)
[2018-08-10 07:49] LABS: INR 1.6 Ratio; Prothrombin Time 16.2 sec (9.8-11.6)
[2018-08-10 08:01] LABS: Calcium 7.8 mg/dL (8.5-10.1); Carbon Dioxide 32.2 meq/L (21.0-32.0); Potassium 4.6 meq/L (3.5-5.1)
[2018-08-10] MEDS: Spironolactone 25 MG Tablet PO SCH ×2 (09:02→22:37)
[2018-08-10] MEDS: glipiZIDE 10 MG Tablet PO SCH (09:02)
[2018-08-10] MEDS: Carvedilol 12.5 MG Tablet PO SCH ×2 (09:02→22:37)
[2018-08-10] MEDS: Magnesium Oxide 400 MG Tablet PO SCH (09:02)
[2018-08-10] MEDS: Nystatin 100,000 UNITS/GM Powder 15 GM Bottle TOPICAL SCH ×4 (09:03→22:38)
[2018-08-10] MEDS: dilTIAZem CD 180 MG Capsule PO SCH ×2 (09:05→22:37)
--- NOTE | 2018-08-10 11:08 | P.PNGI ---
Subjective Interval history: Pt is sitting up in chair, receiving blood. No bleeding reported today. <Andrew Black - Last Filed: 08/12/18 19:29> Physical Exam Vital signs: Vital Signs 08/09/18 13:06 08/09/18 14:10 08/09/18 16:02 Temperature 98.6 F 97.6 F Pulse Rate 100 H 76 85 Respiratory Rate 20 16 16 Blood Pressure 108/62 106/77 Pulse Oximetry 98 91 L 08/09/18 20:00 08/09/18 23:19 08/10/18 00:00 Temperature 98.1 F 98.4 F Pulse Rate 110 H 101 H 98 H Respiratory Rate 22 16 21 Blood Pressure 125/64 131/62 Pulse Oximetry 89 L 94 L 08/10/18 01:14 08/10/18 02:06 08/10/18 02:30 Temperature 98.4 F 98.0 F Pulse Rate 90 83 83 Respiratory Rate 18 18 Blood Pressure 104/56 L 114/56 L Pulse Oximetry 97 97 08/10/18 06:00 08/10/18 07:37 08/10/18 08:00 Temperature 97.8 F 97.6 F Pulse Rate 83 86 Respiratory Rate 17 17 18 Blood Pressure 116/64 123/72 Pulse Oximetry 98 98 98 08/10/18 10:32 08/10/18 10:45 Temperature 97.7 F 97.5 F L Pulse Rate 99 H 99 H Respiratory Rate 18 16 Blood Pressure 99/56 L 102/56 L Pulse Oximetry 90 L Intake & Output 08/09/18 08/10/18 08/10/18 18:59 06:59 18:59 Intake Total 50 / 50 740 / 740 0 / 0 Output Total 100 / 100 Balance 50 / 50 640 / 640 0 / 0 Weight 59.3 kg Intake: IV 50 / 50 100 / 100 Cleocin 600 mg/NS Premix 600 mg 50 / 50 100 / 100 In 50 ml @ 100 mls/hr IV.SIG Q8H [facility] Rx#:[id number] Oral 240 / 240 Intake (Blood Product) Amt 400 / 400 0 / 0 Rbc As-3 Leukoreduced Unit 0 / 0 [id number] Rbc As-3 Leukoreduced Unit 400 / 400 [id number] Output: Urine 100 / 100 Other: Date of Last Bowel Movement 08/09/18 <Malka Freeman - Last Filed: 08/10/18 12:38> Vital signs: Vital Signs 08/09/18 13:06 08/09/18 14:10 08/09/18 16:02 Temperature 98.6 F 97.6 F Pulse Rate 100 H 76 85 Respiratory Rate 20 16 16 Blood Pressure 108/62 106/77 Pulse Oximetry 98 91 L 08/09/18 20:00 08/09/18 23:19 08/10/18 00:00 Temperature 98.1 F 98.4 F Pulse Rate 110 H 101 H 98 H Respiratory Rate 22 16 21 Blood Pressure 125/64 131/62 Pulse Oximetry 89 L 94 L 08/10/18 01:14 08/10/18 02:06 08/10/18 02:30 Temperature 98.4 F 98.0 F Pulse Rate 90 83 83 Respiratory Rate 18 18 Blood Pressure 104/56 L 114/56 L Pulse Oximetry 97 97 08/10/18 06:00 08/10/18 07:37 08/10/18 08:00 Temperature 97.8 F 97.6 F Pulse Rate 83 86 Respiratory Rate 17 17 18 Blood Pressure 116/64 123/72 Pulse Oximetry 98 98 98 08/10/18 10:32 Temperature 97.7 F Pulse Rate 99 H Respiratory Rate 18 Blood Pressure 99/56 L Pulse Oximetry 90 L Intake & Output 08/09/18 08/10/18 08/10/18 18:59 06:59 18:59 Intake Total 50 / 50 740 / 740 0 / 0 Output Total 100 / 100 Balance 50 / 50 640 / 640 0 / 0 Weight 59.3 kg Intake: IV 50 / 50 100 / 100 Cleocin 600 mg/NS Premix 600 mg 50 / 50 100 / 100 In 50 ml @ 100 mls/hr IV.SIG Q8H [facility] Rx#:[id number] Oral 240 / 240 Intake (Blood Product) Amt 400 / 400 0 / 0 Rbc As-3 Leukoreduced Unit 0 / 0 [id number] Rbc As-3 Leukoreduced Unit 400 / 400 [id number] Output: Urine 100 / 100 Other: Date of Last Bowel Movement 08/09/18 Narrative: GENERAL: no apparent distress. CARDIOVASCULAR: Regular rate and rhythm without murmurs, gallops, or rubs. RESPIRATORY: Clear to auscultation. Breath sounds equal bilaterally. No wheezes , rales, or rhonchi. GASTROINTESTINAL: Abdomen soft, obese, non-tender, nondistended. Normal active bowel sounds MUSCULOSKELETAL: Bilateral lower Extremities with edema and erythema NEURO: Alert & Oriented x4 <Andrew Black - Last Filed: 08/12/18 19:29> Results - Labs CBC & Chem 7: 08/10/18 07:08 08/10/18 07:08 Laboratory Results - last 24 hr 08/09/18 08/09/18 08/09/18 06:33 16:43 18:04 WBC RBC Hgb Hct MCV MCH MCHC RDW Plt Count MPV Neut % (Auto) Lymph % (Auto) [place] % (Auto) Eos % (Auto) Baso % (Auto) Neut # (Auto) Lymph # (Auto) [place] # (Auto) Eos # (Auto) Baso # (Auto) WBC Differential Differential Comment PT INR Sodium Potassium Chloride Carbon Dioxide Anion Gap BUN Creatinine Estimated GFR POC Glucose 202 H Random Glucose Calcium TSH 1.440 Free T4 1.07 Blood Type A Negative Antibody Screen Positive H Antibody Identification Antigen Identification MTS Gel Crossmatch See Detail Bld Prod Order Comment 08/10/18 08/10/18 08/10/18 00:58 04:16 07:08 WBC 7.8 RBC 2.39 L Hgb 7.7 L Hct 23.0 L MCV 96.2 MCH 32.1 MCHC 33.4 RDW 18.8 H Plt Count 141 L MPV 8.3 Neut % (Auto) 76.0 H Lymph % (Auto) 7.6 L [place] % (Auto) 14.5 H Eos % (Auto) 1.7 Baso % (Auto) 0.2 Neut # (Auto) 5.9 Lymph # (Auto) 0.6 L [place] # (Auto) 1.1 H Eos # (Auto) 0.1 Baso # (Auto) 0.0 WBC Differential . Differential Comment Auto diff final PT INR Sodium Potassium Chloride Carbon Dioxide Anion Gap BUN Creatinine Estimated GFR POC Glucose 92 Random Glucose Calcium TSH Free T4 Blood Type Antibody Screen Antibody Identification Non-Specific Agglutinin Antigen Identification MTS Gel Crossmatch Bld Prod Order Comment 08/10/18 08/10/18 08/10/18 07:08 07:08 07:15 WBC RBC Hgb Hct MCV MCH MCHC RDW Plt Count MPV Neut % (Auto) Lymph % (Auto) [place] % (Auto) Eos % (Auto) Baso % (Auto) Neut # (Auto) Lymph # (Auto) [place] # (Auto) Eos # (Auto) Baso # (Auto) WBC Differential Differential Comment PT 16.2 H D INR 1.6 Sodium 135 L Potassium 4.6 Chloride 97 L Carbon Dioxide 32.2 H Anion Gap 6 BUN 31 H Creatinine 1.69 H Estimated GFR 29 L POC Glucose 66 L Random Glucose 62 L Calcium 7.8 L TSH Free T4 Blood Type Antibody Screen Antibody Identification Antigen Identification MTS Gel Crossmatch Bld Prod Order Comment 08/10/18 08/10/18 07:32 09:30 WBC RBC Hgb Hct MCV MCH MCHC RDW Plt Count MPV Neut % (Auto) Lymph % (Auto) [place] % (Auto) Eos % (Auto) Baso % (Auto) Neut # (Auto) Lymph # (Auto) [place] # (Auto) Eos # (Auto) Baso # (Auto) WBC Differential Differential Comment PT INR Sodium Potassium Chloride Carbon Dioxide Anion Gap BUN Creatinine Estimated GFR POC Glucose 76 Random Glucose Calcium TSH Free T4 Blood Type Antibody Screen Antibody Identification Antigen Identification E Antigen - NEGATIVE MTS Gel Crossmatch Bld Prod Order Comment <Malka Freeman - Last Filed: 08/10/18 12:38> - Labs CBC & Chem 7: 08/12/18 06:35 08/12/18 06:35 Laboratory Results - last 24 hr 08/09/18 08/09/18 08/09/18 06:33 11:54 16:43 WBC RBC Hgb Hct MCV MCH MCHC RDW Plt Count MPV Neut % (Auto) Lymph % (Auto) [place] % (Auto) Eos % (Auto) Baso % (Auto) Neut # (Auto) Lymph # (Auto) [place] # (Auto) Eos # (Auto) Baso # (Auto) WBC Differential Differential Comment PT INR Sodium Potassium Chloride Carbon Dioxide Anion Gap BUN Creatinine Estimated GFR POC Glucose 111 H 202 H Random Glucose Calcium TSH 1.440 Free T4 1.07 Blood Type Antibody Screen Antibody Identification Antigen Identification MTS Gel Crossmatch Bld Prod Order Comment 08/09/18 08/10/18 08/10/18 18:04 00:58 04:16 WBC RBC Hgb Hct MCV MCH MCHC RDW Plt Count MPV Neut % (Auto) Lymph % (Auto) [place] % (Auto) Eos % (Auto) Baso % (Auto) Neut # (Auto) Lymph # (Auto) [place] # (Auto) Eos # (Auto) Baso # (Auto) WBC Differential Differential Comment PT INR Sodium Potassium Chloride Carbon Dioxide Anion Gap BUN Creatinine Estimated GFR POC Glucose 92 Random Glucose Calcium TSH Free T4 Blood Type A Negative Antibody Screen Positive H Antibody Identification Non-Specific Agglutinin Antigen Identification MTS Gel Crossmatch See Detail Bld Prod Order Comment 08/10/18 08/10/18 08/10/18 07:08 07:08 07:08 WBC 7.8 RBC 2.39 L Hgb 7.7 L Hct 23.0 L MCV 96.2 MCH 32.1 MCHC 33.4 RDW 18.8 H Plt Count 141 L MPV 8.3 Neut % (Auto) 76.0 H Lymph % (Auto) 7.6 L [place] % (Auto) 14.5 H Eos % (Auto) 1.7 Baso % (Auto) 0.2 Neut # (Auto) 5.9 Lymph # (Auto) 0.6 L [place] # (Auto) 1.1 H Eos # (Auto) 0.1 Baso # (Auto) 0.0 WBC Differential . Differential Comment Auto diff final PT 16.2 H D INR 1.6 Sodium 135 L Potassium 4.6 Chloride 97 L Carbon Dioxide 32.2 H Anion Gap 6 BUN 31 H Creatinine 1.69 H Estimated GFR 29 L POC Glucose Random Glucose 62 L Calcium 7.8 L TSH Free T4 Blood Type Antibody Screen Antibody Identification Antigen Identification MTS Gel Crossmatch Bld Prod Order Comment 08/10/18 08/10/18 08/10/18 07:15 07:32 09:30 WBC RBC Hgb Hct MCV MCH MCHC RDW Plt Count MPV Neut % (Auto) Lymph % (Auto) [place] % (Auto) Eos % (Auto) Baso % (Auto) Neut # (Auto) Lymph # (Auto) [place] # (Auto) Eos # (Auto) Baso # (Auto) WBC Differential Differential Comment PT INR Sodium Potassium Chloride Carbon Dioxide Anion Gap BUN Creatinine Estimated GFR POC Glucose 66 L 76 Random Glucose Calcium TSH Free T4 Blood Type Antibody Screen Antibody Identification Antigen Identification E Antigen - NEGATIVE MTS Gel Crossmatch Bld Prod Order Comment <Andrew Black - Last Filed: 08/12/18 19:29> Assessment and Plan - Attending Attestation seen, examined agree with above Reviewed CT abd done in February-abnormal liver, pancreas, mesentery-we will repeat ct abd/pelvis-cannot have iv contrast yet liver cirrhosis-will need additional w-up <Malka Freeman - Last Filed: 08/10/18 12:38> - Plan - Anemia/acute on chronic hgb today 7.7- 2 units of blood ordered Patient is known to our practice from previous encounters for evaluation of anemia. 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 Large duodenal bulb ulcer, bx showed acute duodenitis and mucosal erosion, cytology revealed fragments of bland spindle cell lesion, suggestive fo GIST. EGD on showed The esophagus appeared normal A large subepithelial lesion was located in the gastric antrum, Normal duodenal mucosa in the bulb and second portion of the duodenum, no evidence of ulcer seen previously Retroflexion was performed and was normal. Colonoscopy on 03/19/18 ---> A ascending colon lipoma.Colon polyps descending colon and sigmoid.Diverticulosis left colon. Internal hemorrhoids. Descending colon polyp bx tubular adenoma, ascending colon bx lipoma, sigmoid polyp bx hyperplastic changes. Patient denies nausea, vomiting, hematemesis, abd pain, melena or hematochezia. - Hx of GIST- as above - cellulitis left lower extremity and bilateral groin cellulitis. on abx - A-fib on Coumadin, INR today 1.6, Coumadin on hold - Hx of CHF, DM Plan: - Healthy diet - EGD tomorrow - NPO mn - Consents - GS consult for GIST - Monitor hh - Transfuse as needed - Supportive care - Pt seen and examined by Dr. Freeman and myself and this note is written on her behalf. <Andrew Black - Last Filed: 08/12/18 19:29>
--- NOTE | 2018-08-10 13:28 | P.PNIM ---
Subjective Interval history: Follow up: CHF exacerbation and anemia ? GI source Patient offers no new concerns/complaints Physical Exam Vital signs: Vital Signs 08/09/18 14:10 08/09/18 16:02 08/09/18 20:00 Temperature 97.6 F 98.1 F Pulse Rate 76 85 110 H Respiratory Rate 16 16 22 Blood Pressure 106/77 125/64 Pulse Oximetry 91 L 89 L 08/09/18 23:19 08/10/18 00:00 08/10/18 01:14 Temperature 98.4 F Pulse Rate 101 H 98 H 90 Respiratory Rate 16 21 Blood Pressure 131/62 Pulse Oximetry 94 L 08/10/18 02:06 08/10/18 02:30 08/10/18 06:00 Temperature 98.4 F 98.0 F 97.8 F Pulse Rate 83 83 Respiratory Rate 18 18 17 Blood Pressure 104/56 L 114/56 L 116/64 Pulse Oximetry 97 97 98 08/10/18 07:37 08/10/18 08:00 08/10/18 10:32 Temperature 97.6 F 97.7 F Pulse Rate 83 86 99 H Respiratory Rate 17 18 18 Blood Pressure 123/72 99/56 L Pulse Oximetry 98 98 90 L 08/10/18 10:45 08/10/18 12:49 Temperature 97.5 F L Pulse Rate 99 H 99 H Respiratory Rate 16 16 Blood Pressure 102/56 L Pulse Oximetry Intake & Output 08/09/18 08/10/18 08/10/18 18:59 06:59 18:59 Intake Total 50 / 50 740 / 740 0 / 0 Output Total 100 / 100 Balance 50 / 50 640 / 640 0 / 0 Weight 59.3 kg Intake: IV 50 / 50 100 / 100 Cleocin 600 mg/NS Premix 600 mg 50 / 50 100 / 100 In 50 ml @ 100 mls/hr IV.SIG Q8H [facility] Rx#:[id number] Oral 240 / 240 Intake (Blood Product) Amt 400 / 400 0 / 0 Rbc As-3 Leukoreduced Unit 0 / 0 [id number] Rbc As-3 Leukoreduced Unit 400 / 400 [id number] Output: Urine 100 / 100 Other: Date of Last Bowel Movement 08/09/18 Narrative: GENERAL: This is an obese 78 year old female, well-developed patient CARDIOVASCULAR: Regular rate and rhythm RESPIRATORY: Clear to auscultation. Breath sounds equal bilaterally. GASTROINTESTINAL: Abdomen large soft, non-tender, nondistended. Normal active bowel sounds MUSCULOSKELETAL: Extremities without clubbing, cyanosis. bilateral edema improving NEURO: Alert & Oriented. Moves all ext x4 Results - Labs CBC & Chem 7: 08/10/18 07:08 08/10/18 07:08 Laboratory Results - last 24 hr 08/09/18 08/09/18 08/09/18 06:33 16:43 18:04 WBC RBC Hgb Hct MCV MCH MCHC RDW Plt Count MPV Neut % (Auto) Lymph % (Auto) [place] % (Auto) Eos % (Auto) Baso % (Auto) Neut # (Auto) Lymph # (Auto) [place] # (Auto) Eos # (Auto) Baso # (Auto) WBC Differential Differential Comment PT INR Sodium Potassium Chloride Carbon Dioxide Anion Gap BUN Creatinine Estimated GFR POC Glucose 202 H Random Glucose Calcium TSH 1.440 Free T4 1.07 Blood Type A Negative Antibody Screen Positive H Antibody Identification Antigen Identification MTS Gel Crossmatch See Detail Bld Prod Order Comment 08/10/18 08/10/18 08/10/18 00:58 04:16 07:08 WBC 7.8 RBC 2.39 L Hgb 7.7 L Hct 23.0 L MCV 96.2 MCH 32.1 MCHC 33.4 RDW 18.8 H Plt Count 141 L MPV 8.3 Neut % (Auto) 76.0 H Lymph % (Auto) 7.6 L [place] % (Auto) 14.5 H Eos % (Auto) 1.7 Baso % (Auto) 0.2 Neut # (Auto) 5.9 Lymph # (Auto) 0.6 L [place] # (Auto) 1.1 H Eos # (Auto) 0.1 Baso # (Auto) 0.0 WBC Differential . Differential Comment Auto diff final PT INR Sodium Potassium Chloride Carbon Dioxide Anion Gap BUN Creatinine Estimated GFR POC Glucose 92 Random Glucose Calcium TSH Free T4 Blood Type Antibody Screen Antibody Identification Non-Specific Agglutinin Antigen Identification MTS Gel Crossmatch Bld Prod Order Comment 08/10/18 08/10/18 08/10/18 07:08 07:08 07:15 WBC RBC Hgb Hct MCV MCH MCHC RDW Plt Count MPV Neut % (Auto) Lymph % (Auto) [place] % (Auto) Eos % (Auto) Baso % (Auto) Neut # (Auto) Lymph # (Auto) [place] # (Auto) Eos # (Auto) Baso # (Auto) WBC Differential Differential Comment PT 16.2 H D INR 1.6 Sodium 135 L Potassium 4.6 Chloride 97 L Carbon Dioxide 32.2 H Anion Gap 6 BUN 31 H Creatinine 1.69 H Estimated GFR 29 L POC Glucose 66 L Random Glucose 62 L Calcium 7.8 L TSH Free T4 Blood Type Antibody Screen Antibody Identification Antigen Identification MTS Gel Crossmatch Bld Prod Order Comment 08/10/18 08/10/18 08/10/18 07:32 09:30 12:49 WBC RBC Hgb Hct MCV MCH MCHC RDW Plt Count MPV Neut % (Auto) Lymph % (Auto) [place] % (Auto) Eos % (Auto) Baso % (Auto) Neut # (Auto) Lymph # (Auto) [place] # (Auto) Eos # (Auto) Baso # (Auto) WBC Differential Differential Comment PT INR Sodium Potassium Chloride Carbon Dioxide Anion Gap BUN Creatinine Estimated GFR POC Glucose 76 145 H Random Glucose Calcium TSH Free T4 Blood Type Antibody Screen Antibody Identification Antigen Identification E Antigen - NEGATIVE MTS Gel Crossmatch Bld Prod Order Comment Assessment and Plan - Assessment (1) CHF (congestive heart failure) Code(s): I50.9 - Heart failure, unspecified Status: Acute Plan: Acute on chronic diastolic CHF exacerbation - pleasant 78 y/o F with h/o CHF - pt states that she has been compliant with her outpt PO lasix regimen - Pt presented to the ER with c/o worsening LE edema and SOB - CXR (08/07) --> volume overload - BNP 401 (08/07) - IV lasix 40mg BID - continue spironolactone and BB - supportive care - 2D echo (07/06/14): - EF 51% - LVH - Mitral annular calcification, mild to moderate mitral regurgitation - Aortic cusp calcification - Left atrial enlargement - Trace pulmonic insufficiency - Moderate tricuspid regurgitation with RVSP of 38mmHg - 2D echo (02/25/18) - EF 50% - LVH, mild - aortic valve mild stenosis - Mitral valve mild annula calcification, mild regurg - Tricuspid Valve mild regurg - baseline creatinine 1.2 to 1.4 - creatinine 08/10 1.6 - recheck BMP in AM Cellulitis/tinea cruris Cellulitis RLE - improving - thick layer of desitin from home at pt's groin - skin appears to have tinea with possible secondary cellulitis - continue IV clindamycin - nystatin powder Anemia - CBC 7.6 (08/08), 7.6 (08/09) - EGD with GI, once INR below 1.5 - vitamin K given 08/09 - INR 08/10 1.6 - recheck CBC and INR in AM GIST Tumor - pathology reports from 03/18 sample final diagnosis: submucosal gastric mass, fine needle aspiration: Fragments of bland spindle cell lesion, suggestive of gastrointestinal Stromal Tumor (GIST) - pathology final diagnosis 03/18 sample small intestine, duodenal bulb, biopsy: - acute duodenitis and mucosal erosion - Pt instructed to f/u with General surgery 1 month after discharge February 2018. Pt did NOT f/u with General Surgery. - Consult placed to General Surgery DM2 - Glipizide DC'd due to hypoglycemia - SSI - observe Afib, chronic - controlled - BB - Coumadin on hold COPD - Ventolin MDI DVT prophylaxis with SCDs (2) Edema Code(s): R60.9 - Edema, unspecified Status: Acute (3) Cellulitis Code(s): L03.90 - Cellulitis, unspecified Status: Acute (4) Diabetes Code(s): E11.9 - Type 2 diabetes mellitus without complications Status: Acute (1) CHF (congestive heart failure) Qualifiers: Heart failure chronicity: chronic
[2018-08-10] MEDS ORDERED: Diatrizoate Meglum/Diatrizoate Sod Liq 9 ML UDC PO ONE (17:45)
[2018-08-10 20:18] LABS: Alpha Fetoprotein Tumor Marker 2.6 ng/mL (0.5-8.0); Carcinoembryonic Antigen 0.9 ng/mL (0.2-5.0)
[2018-08-10 20:37] LABS: Hepatitits B Surface Antigen Nonreactive (Nonreactive)
--- NOTE | 2018-08-10 21:41 | CT ---
EXAM DATE: 08/10/2018 9:14 PM EDT AGE/SEX: 78 years / Female INDICATIONS: Abdominal pain. CLINICAL DATA: This is the patient's initial encounter. Patient reports that signs and symptoms have been present for 1 day and indicates a pain score of 5/10. MEDICAL/SURGICAL HISTORY: Congestive heart failure. Hypertension. Chronic obstructive pulmona ry disease. Afib. Appendectomy. Cholecystectomy. RADIATION DOSE: 27.56 CTDI (mGy) ; Patient body habitus COMPARISON: [facility], CT ABDOMEN & PELVIS W/O CONTRAST, 03/16/2018. . TECHNIQUE: Multiple contiguous axial images were obtained through the abdomen. Images were obtained using multiple row detector helical technique. Using automated exposure control and adjustment of the mA and/or kV according to patient size, radiation dose was kept as low as reasonably achievable to o btain optimal diagnostic quality images. DICOM format image data is available electronically for rev iew and comparison. FINDINGS: Lower Lungs: Right greater than left pleural effusions more prominent than on the comparison study. R ight lower lobe consolidation also more prominent than on the comparison study. Small pericardial eff usion. Coronary artery calcifications. Liver: Diffuse nodularity of the liver capsule suggesting cirrhosis. Oval 2.3 cm hypodensity in the p osterior right lobe of the liver is unchanged. Small amount of ascites adjacent to the liver. Spleen: Homogeneous density without enlargement. Pancreas: Mild peripancreatic stranding opacity in the mesenteric fat is again seen. This appearance is very similar to the prior CT of February 2018. Kidneys: Normal in size and shape. No evidence of mass or hydronephrosis. Adrenal Glands: Unremarkable. Aorta: Diffuse calcification. Diameter within normal limits. Bowel/Mesentery: Numerous colonic diverticula. No evidence of acute diverticulitis. No evidence of b owel dilatation. No free air. Abdominal Wall: Anasarca noted at the flanks. Retroperitoneum: No evidence of adenopathy in the retrocrural, para-aortic, or deep pelvic regions. Bladder: Contours are smooth. Reproductive Organs: No abnormal masses or calcifications seen. Inguinal: The inguinal region is unremarkable without evidence of adenopathy. Bony Structures: Degenerative findings of the lumbar spine. Multiple old compression fracture deform ities of the lumbar spine. CONCLUSION: 1. Right greater than left pleural effusions increased in size. Diffuse superficial soft tissue josesito a and small amount of ascites. Findings suggest hypoalbuminemia or fluid overload. 2. Diffuse nodularity of the liver capsule again indicating cirrhosis. Oval 2.3 cm density in the ri ght lobe of liver unchanged. 3. Nonspecific central mesenteric peripancreatic stranding opacity very similar in appearance to the prior study of February 2018 may represent inflammatory change. No organized fluid collections. 4. Extensive colonic diverticulosis. No evidence of acute diverticulitis. 5. Multiple old lumbar spine compression fracture deformities. Electronically signed by: Giovani Perla MD 08/10/2018 9:40 PM EDT
[2018-08-11] MEDS: Insulin NovoLOG Aspart Correctional Sugar Inj SQ SCH ×5 (03:46→20:21)
[2018-08-11] MEDS ORDERED: Chlorhexidine Gluconate 2% 1 Pack (2 Cloths) TOPICAL ONE (05:50)
[2018-08-11] MEDS ORDERED: Metoprolol Tartrate 25 MG Tablet PO ONE (05:50)
[2018-08-11] MEDS ORDERED: Sodium Chlor 0.9% Inj 500 ML IV.SIG SCH (06:00)
[2018-08-11 07:56] LABS: INR 1.2 Ratio
[2018-08-11 07:57] LABS: Baso % (Auto) 0.2 % (0.0-2.0); Eos # (Auto) 0.2 th/mm3 (0.0-0.4); Hematocrit 26.6 % (35.0-46.0); Hemoglobin 9.1 gm/dL (11.6-15.3); Lymph # (Auto) 0.6 th/mm3 (1.0-4.8); Lymph % (Auto) 6.1 % (9.0-44.0); Mean Corpuscular HGB Conc 34.1 % (32.0-36.0); Mean Corpuscular Hemoglobin 32.2 pg (27.0-34.0); Mean Corpuscular Volume 94.3 fL (80.0-100.0); Mean Platelet Volume 8.4 fL (7.0-11.0); Mono # (Auto) 1.2 th/mm3 (0.0-0.9); Mono % (Auto) 12.8 % (0.0-8.0); Neut # (Auto) 7.7 th/mm3 (1.8-7.7); Neut % (Auto) 78.9 % (16.0-70.0); Platelet Count 160 th/mm3 (150-450); Red Blood Count 2.82 mil/mm3 (4.00-5.30); Red Cell Distribution Width 18.5 % (11.6-17.2); White Blood Count 9.7 th/mm3 (4.0-11.0)
[2018-08-11 08:12] LABS: Calcium 7.9 mg/dL (8.5-10.1); Carbon Dioxide 27.2 meq/L (21.0-32.0); Potassium 4.8 meq/L (3.5-5.1)
--- NOTE | 2018-08-11 08:55 | P.CONGS ---
[facility] Gen Surgery Consult Note Consult date: 08/11/18 Narrative: 78 yo F known to me from previous hospitalization after diagnosis of GIST. She was to f/u as outpatient due to multiple acute and chronic medical problems but has not. She is currently admitted due to CHF excacerbation and anemia. She has been transfused 2U PRBCs this admission. Previous she in the year she was diagnosed with large duodenal ulcer although on repeat EGD in May this was resolved. She has EGD scheduled for tomorrow am. She underwent EUS and biopsy of submucosal antral gastric mass and all findings have been consistent with GIST. She has atrial fibrillation on coumadin. Also there is some concern for lower extremity and groin cellulitis. CT a/p in February was also concerning for liver mass, pancreatic mass, cirrhosis. The patient currently relates that she feels short of breath. Review of Systems All other systems reviewed negative except as stated in [facility] - History History Provided By: Patient - Medical History Medical History: Medical History (Last Reviewed 08/11/18 @ 10:18 by Tarah Blakely) Ex-cigarette smoker GIST (gastrointestinal stromal tumor), non-malignant ERNESTO (obstructive sleep apnea) A-fib Benign carcinoid tumor of other sites CHF (congestive heart failure) COPD (chronic obstructive pulmonary disease) Diabetes History of bleeding ulcers Hypertension Presence of orthopedic joint implant - Surgical History Surgical History: Surgical History (Last Reviewed 08/11/18 @ 10:18 by Tarah Blakely) History of open reduction and internal fixation (ORIF) procedure Hx laparoscopic cholecystectomy Hx of appendectomy Hx of cataract extraction Hx of total knee replacement - Tobacco History Second Hand Smoke Exposure: No Tobacco Use In Past 30 Days: No Smoking Status: Former smoker Tobacco Type: Cigarettes - Alcohol History How Often Do You Have a Drink Containing Alcohol: Never - Substance Use History Substance History: No History of Abuse - Travel History Recent Travel in the [place] Within the Last 8 Weeks: No Recent Travel Out of the Country Within the Last 8 Weeks: No - Immunization History Tetanus Immunization: >5 Years Hx Influenza Vaccine This Season: No Medications and Allergies Active Medications: Active Medications Acetaminophen (Tylenol) 650 mg PO Q8H PRN PRN Reason: TEMPERATURE > 100.5 F Last Admin: 08/10/18 01:03 Dose: 650 mg Acetaminophen (Tylenol) 650 mg PO Q8H PRN PRN Reason: FOR PAIN SCALE 1 TO 4 Last Admin: 08/10/18 22:49 Dose: 650 mg Albuterol (Ventolin Hfa Inh) 2 puff INH Q6H PRN PRN Reason: SHORTNESS OF BREATH Last Admin: 08/10/18 16:49 Dose: 2 puff Bisacodyl (Dulcolax Supp) 10 mg RECTAL DAILY PRN PRN Reason: SEVERE CONSITIPATION Carvedilol (Coreg) 25 mg PO BID [facility] Last Admin: 08/10/18 22:37 Dose: 25 mg Dextrose (D50w Vial) 50 ml IV.PUSH UNSCH PRN PRN Reason: PER HYPOGLYCEMIA PROTOCOL Diltiazem HCl (Cardizem Cd 24hr) 180 mg PO BID [facility] Last Admin: 08/10/18 22:37 Dose: 180 mg Furosemide (Lasix Inj) 40 mg IV.PUSH BID@0900,1800 [facility] Last Admin: 08/10/18 18:16 Dose: 40 mg Furosemide (Lasix Inj) 20 mg IV.PUSH ONCE PRN PRN Reason: SEE LABLE COMMENTS Glucagon (Glucagon Inj) 1 mg OTHER PRN PRN PRN Reason: for Hypoglycemia Protocol Sodium Chloride (Ns Inj) 500 mls @ 0 mls/hr IV.SIG BOLUS [facility] Lactated Ringer's (Lr 1000 Ml Inj) 1,000 mls @ 30 mls/hr IV.SIG .Q24H [facility] Stop: 08/12/18 05:59 Sodium Chloride (Ns Inj) 500 mls @ 30 mls/hr IV.SIG .Q10H [facility] Insulin Aspart (Novolog Insulin Correctional Sugar Inj) 0 unit SQ ACHS AND 3AM IRMA; Protocol Last Admin: 08/11/18 03:46 Dose: Not Given Ipratropium Mcalester (Atrovent Neb) 0.5 mg NEB TID NEB [facility] Last Admin: 08/11/18 08:19 Dose: Not Given Magnesium Oxide (Mag-Ox) 400 mg PO DAILY [facility] Last Admin: 08/10/18 09:02 Dose: 400 mg Nystatin (Mycostatin Powder) 1 applicatio TOPICAL QID [facility] Last Admin: 08/10/18 22:38 Dose: 1 applicatio Ondansetron HCl (Zofran Inj) 4 mg IV.PUSH Q6H PRN PRN Reason: NAUSEA OR VOMITING Pantoprazole Sodium (Protonix) 40 mg PO DAILY [facility] Last Admin: 08/10/18 09:02 Dose: 40 mg Sennosides (Senokot) 17.2 mg PO Q12H PRN PRN Reason: Moderate Constipation Spironolactone (Aldactone) 25 mg PO BID [facility] Last Admin: 08/10/18 22:37 Dose: 25 mg Allergies Allergy/AdvReac Type Severity Reaction Status Date / Time latex Allergy Intermediate RASH Verified 06/05/18 09:17 adhesive AdvReac Intermediate RASH, Verified 06/05/18 09:17 REDNESS milk AdvReac Intermediate DIARRHEA, Verified 06/05/18 09:17 GAS mushroom AdvReac Hives Verified 08/07/18 16:09 pepper (genus Capsicum) AdvReac Hives Verified 08/07/18 16:09 Home Medications Medication Instructions Recorded Confirmed Type albuterol sulfate [Ventolin HFA] 2 puff INHALATION Q4-6H PRN 06/03/18 08/07/18 History carvedilol 25 mg PO BID 06/03/18 08/07/18 History diltiazem HCl 180 mg PO BID 06/03/18 08/07/18 History furosemide 40 mg PO DAILY 06/03/18 08/07/18 History glipizide 15 mg PO BID 06/03/18 08/07/18 History ipratropium bromide [Atrovent HFA] 2 puff INHALATION TID 06/03/18 08/07/18 History magnesium oxide 400 mg PO DAILY 06/03/18 08/07/18 History metformin 1,000 mg PO BID 06/03/18 08/07/18 History pantoprazole 40 mg PO DAILY 06/03/18 08/07/18 History spironolactone 25 mg PO BID 06/03/18 08/07/18 History warfarin 2.5 mg PO DIRECTED 06/03/18 08/07/18 History warfarin [Coumadin] 5 mg PO DIRECTED 06/03/18 08/07/18 History Exam Vital signs: Vital Signs 08/10/18 10:32 08/10/18 10:45 08/10/18 12:00 Temperature 97.7 F 97.5 F L 97.4 F L Pulse Rate 99 H 99 H 85 Respiratory Rate 18 16 18 Blood Pressure 99/56 L 102/56 L 102/52 L Pulse Oximetry 90 L 91 L 08/10/18 12:49 08/10/18 16:00 08/10/18 20:00 Temperature 97.4 F L 98 F Pulse Rate 99 H 82 90 Respiratory Rate 16 18 20 Blood Pressure 120/59 L 112/61 Pulse Oximetry 96 94 L 08/10/18 20:11 08/11/18 00:00 08/11/18 04:00 Temperature 97.8 F 97.3 F L Pulse Rate 92 H 83 77 Respiratory Rate 16 20 20 Blood Pressure 100/59 L 115/65 Pulse Oximetry 98 93 L 96 Intake & Output 08/10/18 08/11/18 08/11/18 18:59 06:59 18:59 Intake Total 880 / 880 50 / 50 Balance 880 / 880 50 / 50 Weight 60 kg Intake: IV 300 / 300 50 / 50 Cleocin 600 mg/NS Premix 600 mg 50 / 50 50 / 50 In 50 ml @ 100 mls/hr IV.SIG Q8H IRMA Rx#:[id number] NS Inj 250 ML @ 15 mls/hr IV. 250 / 250 SIG ONCE IRMA Rx#:[id number] Oral 580 / 580 Intake (Blood Product) Amt 0 / 0 Rbc As-3 Leukoreduced Unit 0 / 0 [id number] Other: # Voids 4 2 Date of Last Bowel Movement 08/09/18 # Bowel Movements 1 Narrative: GENERAL: Awake and alert. No acute distress. Cooperative. Obese. HEAD: Normocephalic. Atraumatic. EYES: Pupils equal round and reactive to light bilaterally. No scleral icterus. ENT: Moist oral mucosa. NECK: Trachea midline. CHEST: somewhat tachypneic with mild accessory muscle use. CARDIOVASCULAR: Regular rate and rhythm. ABDOMEN: obese. Mild tenderness left groin but I cannot tell if there is a hernia present SKIN: Warm, dry, nonjaundiced. Results - Labs 08/11/18 06:30 08/11/18 06:30 Abnormal lab results 08/09/18 08/10/18 08/10/18 Range/Units 18:04 12:49 17:47 RBC (4.00-5.30) mil/mm3 Hgb (11.6-15.3) gm/dL Hct (35.0-46.0) % RDW (11.6-17.2) % Neut % (Auto) (16.0-70.0) % Lymph % (Auto) (9.0-44.0) % Franklin % (Auto) (0.0-8.0) % Lymph # (Auto) (1.0-4.8) th/mm3 [place] # (Auto) (0.0-0.9) th/mm3 PT (9.8-11.6) sec Sodium (136-145) meq/L Chloride (98-107) meq/L BUN (7-18) mg/dL Creatinine (0.50-1.00) mg/dL Estimated GFR (>89) mL/min POC Glucose 145 H 214 H (68-110) mg/dl Calcium (8.5-10.1) mg/dL Iron (50-170) mcg/dL Antibody Screen Positive H MTS Gel Crossmatch See Detail 08/10/18 08/11/18 08/11/18 Range/Units 18:36 06:30 06:30 RBC 2.82 L (4.00-5.30) mil/mm3 Hgb 9.1 L (11.6-15.3) gm/dL Hct 26.6 L (35.0-46.0) % RDW 18.5 H (11.6-17.2) % Neut % (Auto) 78.9 H (16.0-70.0) % Lymph % (Auto) 6.1 L (9.0-44.0) % Franklin % (Auto) 12.8 H (0.0-8.0) % Lymph # (Auto) 0.6 L (1.0-4.8) th/mm3 Franklin # (Auto) 1.2 H (0.0-0.9) th/mm3 PT (9.8-11.6) sec Sodium 133 L (136-145) meq/L Chloride 94 L (98-107) meq/L BUN 35 H (7-18) mg/dL Creatinine 1.80 H (0.50-1.00) mg/dL Estimated GFR 27 L (>89) mL/min POC Glucose (68-110) mg/dl Calcium 7.9 L (8.5-10.1) mg/dL Iron 40 L (50-170) mcg/dL Antibody Screen MTS Gel Crossmatch 08/11/18 08/11/18 Range/Units 06:30 07:48 RBC (4.00-5.30) mil/mm3 Hgb (11.6-15.3) gm/dL Hct (35.0-46.0) % RDW (11.6-17.2) % Neut % (Auto) (16.0-70.0) % Lymph % (Auto) (9.0-44.0) % Franklin % (Auto) (0.0-8.0) % Lymph # (Auto) (1.0-4.8) th/mm3 Franklin # (Auto) (0.0-0.9) th/mm3 PT 12.0 H (9.8-11.6) sec Sodium (136-145) meq/L Chloride (98-107) meq/L BUN (7-18) mg/dL Creatinine (0.50-1.00) mg/dL Estimated GFR (>89) mL/min POC Glucose 121 H (68-110) mg/dl Calcium (8.5-10.1) mg/dL Iron (50-170) mcg/dL Antibody Screen MTS Gel Crossmatch Diabetes panel 08/11/18 Range/Units 06:30 Sodium 133 L (136-145) meq/L Potassium 4.8 (3.5-5.1) meq/L Chloride 94 L (98-107) meq/L Carbon Dioxide 27.2 (21.0-32.0) meq/L BUN 35 H (7-18) mg/dL Creatinine 1.80 H (0.50-1.00) mg/dL Calcium 7.9 L (8.5-10.1) mg/dL Calcium panel 08/11/18 Range/Units 06:30 Calcium 7.9 L (8.5-10.1) mg/dL Pituitary panel 08/11/18 Range/Units 06:30 Sodium 133 L (136-145) meq/L Potassium 4.8 (3.5-5.1) meq/L Chloride 94 L (98-107) meq/L Carbon Dioxide 27.2 (21.0-32.0) meq/L BUN 35 H (7-18) mg/dL Creatinine 1.80 H (0.50-1.00) mg/dL Calcium 7.9 L (8.5-10.1) mg/dL Adrenal panel 09/17/18 Range/Units 06:30 Sodium 133 L (136-145) meq/L Potassium 4.8 (3.5-5.1) meq/L Chloride 94 L (98-107) meq/L Carbon Dioxide 27.2 (21.0-32.0) meq/L BUN 35 H (7-18) mg/dL Creatinine 1.80 H (0.50-1.00) mg/dL Calcium 7.9 L (8.5-10.1) mg/dL All other labs normal. Assessment and Plan - Assessment (1) Gastrointestinal stromal tumor (GIST) Code(s): C49.A0 - Gastrointestinal stromal tumor, unspecified site Status: Acute - Plan No plans for operative intervention at this time as she has many other current issues. Will follow along. EGD today. May benefit from MRI to eval further intrabdominal issues.
[2018-08-11] MEDS ORDERED: Lidocaine PF 1% Inj 5 ML Syringe INFILTRATN ONE (11:04)
--- NOTE | 2018-08-11 11:23 | P.PCN ---
Date of procedure: 08/11/18 Pre-op diagnosis: Anemia, no history of gastric GIST Procedure: PROCEDURE PERFORMED EGD with biopsy PROCEDURE: The procedure, risks and benefits were discussed with Patient/POA and informed consent was obtained. Anesthesia sedated Patient with Diprivan. Patient was placed in the left lateral decubitus position. EGD: The Pentax videoscope was introduced through the oropharynx and advanced to the second portion of the duodenum under direct visualization. Retroflexion was performed in the stomach. FINDINGS: The esophagus this was normal The stomach there was some patchy erythema in the antrum but no ulcerations and no erosions again noted on the lesser curve and mostly the posterior wall of the antrum a submucosal mass with no ulceration no blood or bleeding noted around this area antral biopsies were taken for further evaluation The duodenum this was normal ESTIMATED BLOOD LOSS: None SPECIMENS REMOVED: Antral biopsies COMPLICATIONS: None IMPRESSION: Gastritis GI ST PLAN: Await biopsies Continue with current supportive care Monitor labs and transfuse as needed Anesthesia: MAC Surgeon: Justin Bone Condition: stable Disposition: floor
[2018-08-11] MEDS: Spironolactone 25 MG Tablet PO SCH ×2 (13:01→20:19)
[2018-08-11] MEDS: Magnesium Oxide 400 MG Tablet PO SCH (13:01)
[2018-08-11] MEDS: Carvedilol 12.5 MG Tablet PO SCH ×2 (13:02→20:19)
[2018-08-11] MEDS: dilTIAZem CD 180 MG Capsule PO SCH ×2 (13:06→20:19)
[2018-08-11] MEDS: Nystatin 100,000 UNITS/GM Powder 15 GM Bottle TOPICAL SCH ×4 (13:07→20:22)
--- NOTE | 2018-08-11 13:21 | P.PNIM ---
Subjective Interval history: on stretcher ready for egd Physical Exam Vital signs: Vital Signs 08/10/18 16:00 08/10/18 20:00 08/10/18 20:11 Temperature 97.4 F L 98 F Pulse Rate 82 88 92 H Respiratory Rate 18 20 16 Blood Pressure 120/59 L 112/61 Pulse Oximetry 96 94 L 98 08/11/18 00:00 08/11/18 04:00 08/11/18 10:00 Temperature 97.8 F 97.3 F L Pulse Rate 77 78 Respiratory Rate 20 20 Blood Pressure 100/59 L 115/65 Pulse Oximetry 93 L 96 97 08/11/18 10:15 08/11/18 10:42 08/11/18 10:45 Temperature Pulse Rate 88 Respiratory Rate 19 Blood Pressure Pulse Oximetry 97 100 08/11/18 11:27 08/11/18 12:00 Temperature 97.2 F L 97.0 F L Pulse Rate 97 H 97 H Respiratory Rate 20 18 Blood Pressure 118/83 122/49 L Pulse Oximetry 96 Intake & Output 08/10/18 08/11/18 08/11/18 18:59 06:59 18:59 Intake Total 880 / 880 50 / 50 100 / 100 Balance 880 / 880 50 / 50 100 / 100 Weight 60 kg Intake: IV 300 / 300 50 / 50 Cleocin 600 mg/NS Premix 600 mg 50 / 50 50 / 50 In 50 ml @ 100 mls/hr IV.SIG Q8H IRMA Rx#:[id number] NS Inj 250 ML @ 15 mls/hr IV. 250 / 250 SIG ONCE IRMA Rx#:[id number] Oral 580 / 580 Anesthesia Amount 100 / 100 Intake (Blood Product) Amt 0 / 0 Rbc As-3 Leukoreduced Unit 0 / 0 [id number] Other: # Voids 4 2 Date of Last Bowel Movement 08/09/18 # Bowel Movements 1 uncomfortable on stretcher mild labored breathing heart reg lung cta abd s/nt ext no pitting levi groin and abd folds with cracked skin and mild yeast infection. Results - Labs CBC & Chem 7: 08/11/18 06:30 08/11/18 06:30 Laboratory Results - last 24 hr 08/10/18 08/10/18 08/10/18 17:47 18:36 18:36 WBC RBC Hgb Hct MCV MCH MCHC RDW Plt Count MPV Neut % (Auto) Lymph % (Auto) King % (Auto) Eos % (Auto) Baso % (Auto) Neut # (Auto) Lymph # (Auto) King # (Auto) Eos # (Auto) Baso # (Auto) WBC Differential Differential Comment PT INR Sodium Potassium Chloride Carbon Dioxide Anion Gap BUN Creatinine Estimated GFR POC Glucose 214 H Random Glucose Calcium Iron 40 L Ferritin 34 Tumor Marker AFP 2.6 Carcinoembryonic Ag 0.9 CA 19-9 Antigen 7.0 Hep Bs Antigen Nonreactive Hep C IgG Ab Nonreactive 08/11/18 08/11/18 08/11/18 06:30 06:30 06:30 WBC 9.7 RBC 2.82 L Hgb 9.1 L Hct 26.6 L MCV 94.3 MCH 32.2 MCHC 34.1 RDW 18.5 H Plt Count 160 MPV 8.4 Neut % (Auto) 78.9 H Lymph % (Auto) 6.1 L King % (Auto) 12.8 H Eos % (Auto) 2.0 Baso % (Auto) 0.2 Neut # (Auto) 7.7 Lymph # (Auto) 0.6 L King # (Auto) 1.2 H Eos # (Auto) 0.2 Baso # (Auto) 0.0 WBC Differential . Differential Comment Auto diff final PT 12.0 H INR 1.2 Sodium 133 L Potassium 4.8 Chloride 94 L Carbon Dioxide 27.2 Anion Gap 12 BUN 35 H Creatinine 1.80 H Estimated GFR 27 L POC Glucose Random Glucose 95 Calcium 7.9 L Iron Ferritin Tumor Marker AFP Carcinoembryonic Ag CA 19-9 Antigen Hep Bs Antigen Hep C IgG Ab 08/11/18 08/11/18 07:48 12:10 WBC RBC Hgb Hct MCV MCH MCHC RDW Plt Count MPV Neut % (Auto) Lymph % (Auto) King % (Auto) Eos % (Auto) Baso % (Auto) Neut # (Auto) Lymph # (Auto) King # (Auto) Eos # (Auto) Baso # (Auto) WBC Differential Differential Comment PT INR Sodium Potassium Chloride Carbon Dioxide Anion Gap BUN Creatinine Estimated GFR POC Glucose 121 H 109 Random Glucose Calcium Iron Ferritin Tumor Marker AFP Carcinoembryonic Ag CA 19-9 Antigen Hep Bs Antigen Hep C IgG Ab - Imaging Impressions Abdomen/Pelvis CT 08/10/18 00:00 CONCLUSION: 1. Right greater than left pleural effusions increased in size. Diffuse superficial soft tissue edema and small amount of ascites. Findings suggest hypoalbuminemia or fluid overload. 2. Diffuse nodularity of the liver capsule again indicating cirrhosis. Oval 2.3 cm density in the right lobe of liver unchanged. 3. Nonspecific central mesenteric peripancreatic stranding opacity very similar in appearance to the prior study of February 2018 may represent inflammatory change. No organized fluid collections. 4. Extensive colonic diverticulosis. No evidence of acute diverticulitis. 5. Multiple old lumbar spine compression fracture deformities. Assessment and Plan - Assessment (1) CHF (congestive heart failure) Code(s): I50.9 - Heart failure, unspecified Status: Acute Plan: Acute on chronic diastolic CHF exacerbation - pleasant 78 y/o F with h/o CHF - pt states that she has been compliant with her outpt PO lasix regimen - Pt presented to the ER with c/o worsening LE edema and SOB - CXR (08/07) --> volume overload - BNP 401 (08/07) - IV lasix 40mg BID - continue spironolactone and BB - supportive care - 2D echo (07/06/14): - EF 51% - LVH - Mitral annular calcification, mild to moderate mitral regurgitation - Aortic cusp calcification - Left atrial enlargement - Trace pulmonic insufficiency - Moderate tricuspid regurgitation with RVSP of 38mmHg - 2D echo (02/25/18) - EF 50% - LVH, mild - aortic valve mild stenosis - Mitral valve mild annula calcification, mild regurg - Tricuspid Valve mild regurg - baseline creatinine 1.2 to 1.4 - creatinine rising - iv to po lasix. recheck bmp in AM will need snf.- recheck BMP in AM Cellulitis/tinea cruris Cellulitis RLE - improving - thick layer of desitin from home at pt's groin - skin appears to have tinea with possible secondary cellulitis - continue IV clindamycin - nystatin powder Anemia - CBC 7.6 (08/08), 7.6 (08/09) - EGD with GI, once INR below 1.5 - vitamin K given hgb stable. 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 Pt did NOT f/u with General Surgery. - Consult placed to General Surgery. no surgery. egd today. DM2 - Glipizide DC'd due to hypoglycemia - SSI - observe Afib, chronic - controlled - BB - Coumadin on hold COPD - Ventolin MDI DVT prophylaxis with SCDs (2) Edema Code(s): R60.9 - Edema, unspecified Status: Acute (3) Cellulitis Code(s): L03.90 - Cellulitis, unspecified Status: Acute (4) Diabetes Code(s): E11.9 - Type 2 diabetes mellitus without complications Status: Acute (1) CHF (congestive heart failure) Qualifiers: Heart failure chronicity: chronic
[2018-08-11 20:18] VITALS: RESP 18
[2018-08-11] MEDS: Acetaminophen 325 MG Tablet PO PRN (20:19)
[2018-08-11] MEDS ORDERED: Temazepam 15 MG Capsule PO ONE (22:45)
[2018-08-12] MEDS: Insulin NovoLOG Aspart Correctional Sugar Inj SQ SCH ×3 (02:57→12:45)
[2018-08-12 08:16] LABS: Hematocrit 27.7 % (35.0-46.0); Hemoglobin 9.2 gm/dL (11.6-15.3); Mean Corpuscular HGB Conc 33.2 % (32.0-36.0); Mean Corpuscular Hemoglobin 32.2 pg (27.0-34.0); Mean Platelet Volume 8.7 fL (7.0-11.0); Platelet Count 170 th/mm3 (150-450); Red Blood Count 2.85 mil/mm3 (4.00-5.30); Red Cell Distribution Width 18.5 % (11.6-17.2); White Blood Count 8.7 th/mm3 (4.0-11.0)
[2018-08-12 08:51] LABS: Calcium 8.2 mg/dL (8.5-10.1); Carbon Dioxide 30.3 meq/L (21.0-32.0); Potassium 4.8 meq/L (3.5-5.1)
[2018-08-12] MEDS ORDERED: Furosemide 40 MG Tablet PO SCH (09:00)
[2018-08-12] MEDS: Carvedilol 12.5 MG Tablet PO SCH (09:18)
[2018-08-12] MEDS: Magnesium Oxide 400 MG Tablet PO SCH (09:18)
[2018-08-12] MEDS: Nystatin 100,000 UNITS/GM Powder 15 GM Bottle TOPICAL SCH ×2 (09:18→12:45)
[2018-08-12] MEDS: dilTIAZem CD 180 MG Capsule PO SCH (09:18)
[2018-08-12] MEDS: Spironolactone 25 MG Tablet PO SCH (09:18)
--- NOTE | 2018-08-12 11:59 | P.PNGI ---
Subjective Interval history: Patient sitting up in bed. Denies abdominal pain. Eating breakfast meal and denies nausea or vomiting. Discussed EGD results. <Nenita Kang - Last Filed: 08/12/18 12:01> Physical Exam Vital signs: Vital Signs 08/11/18 12:00 08/11/18 16:00 08/11/18 19:36 Temperature 97.0 F L 97.6 F Pulse Rate 97 H 91 H 91 H Respiratory Rate 18 16 16 Blood Pressure 122/49 L 115/60 Pulse Oximetry 96 94 L 08/11/18 19:50 08/11/18 20:00 08/12/18 00:00 Temperature 97.6 F Pulse Rate 80 90 73 Respiratory Rate 18 Blood Pressure 106/63 Pulse Oximetry 98 08/12/18 04:00 08/12/18 08:00 08/12/18 08:40 Temperature 98.6 F 97.5 F L Pulse Rate 78 97 H 105 H Respiratory Rate 18 18 18 Blood Pressure 116/55 L 114/60 Pulse Oximetry 94 L 96 97 Intake & Output 08/11/18 08/12/18 08/12/18 18:59 06:59 18:59 Intake Total 700 / 700 Output Total 1350 / 1350 Balance 700 / 700 -1350 / -1350 Weight 60.6 kg Intake: Oral 600 / 600 Anesthesia Amount 100 / 100 Output: Urine 1350 / 1350 Other: # Voids 5 - Constitutional no acute distress - Routine HEENT Exam Head: Present: normocephalic - Routine Neck Exam Present: supple - Routine Respiratory Exam Present: CTA bilaterally. Absent: respiratory distress - Routine Cardiovascular Exam Present: RRR - Routine Abdominal Exam Present: soft, normoactive bowel sounds, distended. Absent: tenderness, firm - Routine Extremities Exam Present: edema, pulses intact. Absent: cyanosis, clubbing - Routine Skin Exam Present: dry, warm - Routine Neurological Exam Present: alert, oriented X3, moving all extremities - Detailed Neurological Exam: Coma Scale Eye Opening: Spontaneous Verbal Response: Oriented Motor Response: Obey commands [place] Coma Scale Total: 15 - Routine Psychiatric Exam Present: normal affect, cooperative <Nenita Kang - Last Filed: 08/12/18 12:01> Results - Labs CBC & Chem 7: 08/12/18 06:35 08/12/18 06:35 Laboratory Results - last 24 hr 08/11/18 08/11/18 08/11/18 12:10 16:43 19:26 WBC RBC Hgb Hct MCV MCH MCHC RDW Plt Count MPV Sodium Potassium Chloride Carbon Dioxide Anion Gap BUN Creatinine Estimated GFR POC Glucose 109 199 H 160 H Random Glucose Calcium 08/12/18 08/12/18 08/12/18 02:55 06:35 06:35 WBC 8.7 RBC 2.85 L Hgb 9.2 L Hct 27.7 L MCV 97.0 MCH 32.2 MCHC 33.2 RDW 18.5 H Plt Count 170 MPV 8.7 Sodium 132 L Potassium 4.8 Chloride 94 L Carbon Dioxide 30.3 Anion Gap 8 BUN 38 H Creatinine 1.77 H Estimated GFR 28 L POC Glucose 131 H Random Glucose 108 H Calcium 8.2 L 08/12/18 07:55 WBC RBC Hgb Hct MCV MCH MCHC RDW Plt Count MPV Sodium Potassium Chloride Carbon Dioxide Anion Gap BUN Creatinine Estimated GFR POC Glucose 117 H Random Glucose Calcium <Nenita Kang - Last Filed: 08/12/18 12:01> - Labs CBC & Chem 7: 08/12/18 06:35 08/12/18 06:35 Laboratory Results - last 24 hr 08/10/18 08/10/18 00:58 18:36 [id number] 218 H Rout Panel Path Interp <Justin Bone - Last Filed: 08/13/18 16:29> Assessment and Plan - Plan - Anemia/acute on chronic hgb today 7.7- 2 units of blood ordered Patient is known to our practice from previous encounters for evaluation of anemia. 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 Large duodenal bulb ulcer, bx showed acute duodenitis and mucosal erosion, cytology revealed fragments of bland spindle cell lesion, suggestive fo GIST. EGD on showed The esophagus appeared normal A large subepithelial lesion was located in the gastric antrum, Normal duodenal mucosa in the bulb and second portion of the duodenum, no evidence of ulcer seen previously Retroflexion was performed and was normal. Colonoscopy on 03/19/18 ---> A ascending colon lipoma.Colon polyps descending colon and sigmoid.Diverticulosis left colon. Internal hemorrhoids. Descending colon polyp bx tubular adenoma, ascending colon bx lipoma, sigmoid polyp bx hyperplastic changes. Patient denies nausea, vomiting, hematemesis, abd pain, melena or hematochezia. - Hx of GIST- as above - cellulitis left lower extremity and bilateral groin cellulitis. on abx - A-fib on Coumadin, INR today 1.6, Coumadin on hold - Hx of CHF, DM 08/12/18-Pt sitting up in bed without any complaints offered today. Discussed EGD results with patient. 08/11/18 EGD revealed--> The esophagus this was normal. The stomach there was some patchy erythema in the antrum but no ulcerations and no erosions again noted on the lesser curve and mostly the posterior wall of the antrum a submucosal mass with no ulceration no blood or bleeding noted around this area antral biopsies were taken for further evaluation The duodenum this was normal.Impression --> Gastritis, GI ST. Labs reviewed 08/12/18 WBC 8.7 Hgb 9.2 Hct 27.7. stable 08/11/18 INR 1.2 Coumadin on hold. Plan: -Cardiac diet -Monitor labs -Transfuse if needed -Await Biopsy results -Supportive care -Further recommendations to follow -Pt seen and examined by and myself and this note is written on his behalf. <Nenita Kang - Last Filed: 08/12/18 12:01> - Plan Patient seen and examined Agree with above Continue with current supportive care Monitor labs <Justin Bone - Last Filed: 08/13/18 16:29>
--- NOTE | 2018-08-12 12:29 | P.DS ---
<Marilyn Gonzalez - Last Filed: 08/12/18 12:20> Date of admission: 08/08/18 17:50 Primary care physician: Ham Xavier DO Attending physician on discharge: Cody Rivas Anticipated date of discharge: 08/12/18 Brief History from admission: 78-year-old female arrives to the ER with a complaint of left lower extremity edema worse than normal. Patient has a history of CHF and takes Lasix and reports compliance with that as per normal however has had increasing left lower extremity swelling still. She also reports pain in the left groin chronic in nature which has now become somewhat deeper over the past few days. Previously it seemed to just involve the skin. Patient denies chest pain. There is some dyspnea reported. No fever. Dietary compliance with CHF guidelines reported. She denies injury. In er found to be in mild CHF based on chest xray,also with cellulitis left lower extremity and bilateral groin cellulitis,will start IV clindamycin and IV lasix and will admit to observation. Patient denies chest pain nausea some SOB ,no headache ,dizziness some trouble ambulating from the edema. Patient also has atrial fibe on Coumadin ,INR 3.1 hold for now. Related Data DS: Diagnosis - Discharge Diagnosis (1) CHF (congestive heart failure) Status: Acute (2) Edema Status: Acute (3) Cellulitis Status: Acute (4) Diabetes Status: Acute DS: Medications - Discharge Medications Prescriptions: hydrocodone-acetaminophen [[place]] 1 tab PO Q4H PRN #18 tab PRN Reason: Pain temazepam 15 mg PO HS PRN #10 cap PRN Reason: Insomnia DS: Summary Hospital Course: Acute on chronic diastolic CHF exacerbation - improving - pleasant 78 y/o F with h/o CHF - pt states that she has been compliant with her outpt PO lasix regimen - Pt presented to the ER with c/o worsening LE edema and SOB - CXR (08/07) --> volume overload - BNP 401 (08/07) - IV lasix 40mg BID - continue spironolactone and BB - supportive care - 2D echo (07/06/14): - EF 51% - LVH - Mitral annular calcification, mild to moderate mitral regurgitation - Aortic cusp calcification - Left atrial enlargement - Trace pulmonic insufficiency - Moderate tricuspid regurgitation with RVSP of 38mmHg - 2D echo (02/25/18) - EF 50% - LVH, mild - aortic valve mild stenosis - Mitral valve mild annula calcification, mild regurg - Tricuspid Valve mild regurg - baseline creatinine 1.2 to 1.4 - creatinine (08/11) -> 1.77 (08/12) - iv to po lasix 08/12 Cellulitis/tinea cruris -> improving Cellulitis RLE -> resolved - improving - thick layer of Desitin from home at pt's groin - skin appears to have tinea with possible secondary cellulitis - continue IV clindamycin - nystatin powder Anemia - CBC 7.6 (08/08), 7.6 (08/09), 7.7 (08/10), 2 units PRBCs (08/10), 9.1 (08/11), 9.2 (08/12) - EGD with GI, once INR below 1.5 - vitamin K given hgb stable. 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 Pt did NOT f/u with General Surgery. - Consult placed to General Surgery. no surgery. - EGD 08/[address] Bone reveals: Gastritis GI ST - CT abd/pelvis 08/10 reviewed and reveals: CONCLUSION: 1. Right greater than left pleural effusions increased in size. Diffuse superficial soft tissue edema and small amount of ascites. Findings suggest hypoalbuminemia or fluid overload. 2. Diffuse nodularity of the liver capsule again indicating cirrhosis. Oval 2.3 cm density in the right lobe of liver unchanged. 3. Nonspecific central mesenteric peripancreatic stranding opacity very similar in appearance to the prior study of February 2018 may represent inflammatory change. No organized fluid collections. 4. Extensive colonic diverticulosis. No evidence of acute diverticulitis. 5. Multiple old lumbar spine compression fracture deformities. Unable to do CT with contrast due to renal function patient offered MRI 02/2018 for similar findings and refused due to claustrophobia. results reviewed with patient again MRI offered again patient understands risk and continues to refuse MRI due to claustrophobia. - Patient will need to follow up with PCP, GI and general surgery DM2 - Glipizide DC'd due to hypoglycemia - SSI - observe Afib, chronic - controlled - BB - Coumadin on hold COPD - Ventolin MDI DVT prophylaxis with SCDs - Time Spent with Patient Total time spent providing and/or coordinating discharge services: Greater than 30 minutes - Quality: VTE Deep Vein Thrombosis/Pulmonary Embolism Present on Admission: No Exam Vital signs: Vital Signs 08/11/18 16:00 08/11/18 19:36 08/11/18 19:50 Temperature 97.6 F Pulse Rate 91 H 91 H 80 Respiratory Rate 16 16 Blood Pressure 115/60 Pulse Oximetry 94 L 08/11/18 20:00 08/12/18 00:00 08/12/18 04:00 Temperature 97.6 F 98.6 F Pulse Rate 90 73 78 Respiratory Rate 18 18 Blood Pressure 106/63 116/55 L Pulse Oximetry 98 94 L 08/12/18 08:00 08/12/18 08:40 Temperature 97.5 F L Pulse Rate 97 H 105 H Respiratory Rate 18 18 Blood Pressure 114/60 Pulse Oximetry 96 97 Intake & Output 08/11/18 08/12/18 08/12/18 18:59 06:59 18:59 Intake Total 700 / 700 Output Total 1350 / 1350 Balance 700 / 700 -1350 / -1350 Weight 60.6 kg Intake: Oral 600 / 600 Anesthesia Amount 100 / 100 Output: Urine 1350 / 1350 Other: # Voids 5 Narrative: GENERAL: This is an obese 78 year old female, well-developed patient CARDIOVASCULAR: Regular rate and rhythm RESPIRATORY: Clear to auscultation. Breath sounds equal bilaterally. GASTROINTESTINAL: Abdomen large soft, non-tender, nondistended. Normal active bowel sounds MUSCULOSKELETAL: Extremities without clubbing, cyanosis. bilateral edema improving NEURO: Alert & Oriented. Moves all ext x4 Results Procedures completed during hospitalization: EGD 08/11 Pending studies at discharge: Pending at discharge 08/11/18 15:18 Surgical [PTH] Routine Labs on day of discharge: Labs from last 24 hours 08/12/18 08/12/18 08/12/18 07:55 06:35 06:35 WBC 8.7 RBC 2.85 L Hgb 9.2 L Hct 27.7 L MCV 97.0 MCH 32.2 MCHC 33.2 RDW 18.5 H Plt Count 170 MPV 8.7 Sodium 132 L Potassium 4.8 Chloride 94 L Carbon Dioxide 30.3 Anion Gap 8 BUN 38 H Creatinine 1.77 H Estimated GFR 28 L POC Glucose 117 H Random Glucose 108 H Calcium 8.2 L 08/12/18 08/11/18 08/11/18 02:55 19:26 16:43 WBC RBC Hgb Hct MCV MCH MCHC RDW Plt Count MPV Sodium Potassium Chloride Carbon Dioxide Anion Gap BUN Creatinine Estimated GFR POC Glucose 131 H 160 H 199 H Random Glucose Calcium 08/11/18 12:10 WBC RBC Hgb Hct MCV MCH MCHC RDW Plt Count MPV Sodium Potassium Chloride Carbon Dioxide Anion Gap BUN Creatinine Estimated GFR POC Glucose 109 Random Glucose Calcium - Impressions ITS Impressions Chest X-Ray 08/07/18 16:27 CONCLUSION: Mild cardiomegaly with mild pulmonary vascular engorgement. Abdomen/Pelvis CT 08/10/18 00:00 CONCLUSION: 1. Right greater than left pleural effusions increased in size. Diffuse superficial soft tissue edema and small amount of ascites. Findings suggest hypoalbuminemia or fluid overload. 2. Diffuse nodularity of the liver capsule again indicating cirrhosis. Oval 2.3 cm density in the right lobe of liver unchanged. 3. Nonspecific central mesenteric peripancreatic stranding opacity very similar in appearance to the prior study of February 2018 may represent inflammatory change. No organized fluid collections. 4. Extensive colonic diverticulosis. No evidence of acute diverticulitis. 5. Multiple old lumbar spine compression fracture deformities. <Cody Rivas - Last Filed: 08/12/18 15:07> Date of admission: 08/08/18 17:50 Primary care physician: Ham Xavier DO DS: Diagnosis - Discharge Diagnosis (1) CHF (congestive heart failure) Status: Acute (2) Edema Status: Acute (3) Cellulitis Status: Acute (4) Diabetes Status: Acute DS: Summary - Time Spent with Patient Total time spent providing and/or coordinating discharge services: Exam Vital signs: Vital Signs 08/11/18 16:00 08/11/18 19:36 08/11/18 19:50 Temperature 97.6 F Pulse Rate 91 H 91 H 80 Respiratory Rate 16 16 Blood Pressure 115/60 Pulse Oximetry 94 L 08/11/18 20:00 08/12/18 00:00 08/12/18 04:00 Temperature 97.6 F 98.6 F Pulse Rate 90 73 78 Respiratory Rate 18 18 Blood Pressure 106/63 116/55 L Pulse Oximetry 98 94 L 08/12/18 08:00 08/12/18 08:40 08/12/18 12:00 Temperature 97.5 F L 97.4 F L Pulse Rate 97 H 105 H 102 H Respiratory Rate 18 18 18 Blood Pressure 114/60 96/55 L Pulse Oximetry 96 97 96 Intake & Output 08/11/18 08/12/18 08/12/18 18:59 06:59 18:59 Intake Total 700 / 700 Output Total 1350 / 1350 Balance 700 / 700 -1350 / -1350 Weight 60.6 kg Intake: Oral 600 / 600 Anesthesia Amount 100 / 100 Output: Urine 1350 / 1350 Other: # Voids 5 Results Pending studies at discharge: Pending at discharge 08/11/18 15:18 Surgical [PTH] Routine Labs on day of discharge: Labs from last 24 hours 08/12/18 08/12/18 08/12/18 12:45 07:55 06:35 WBC 8.7 RBC 2.85 L Hgb 9.2 L Hct 27.7 L MCV 97.0 MCH 32.2 MCHC 33.2 RDW 18.5 H Plt Count 170 MPV 8.7 Sodium Potassium Chloride Carbon Dioxide Anion Gap BUN Creatinine Estimated GFR POC Glucose 239 H 117 H Random Glucose Calcium 08/12/18 08/12/18 08/11/18 06:35 02:55 19:26 WBC RBC Hgb Hct MCV MCH MCHC RDW Plt Count MPV Sodium 132 L Potassium 4.8 Chloride 94 L Carbon Dioxide 30.3 Anion Gap 8 BUN 38 H Creatinine 1.77 H Estimated GFR 28 L POC Glucose 131 H 160 H Random Glucose 108 H Calcium 8.2 L 08/11/18 16:43 WBC RBC Hgb Hct MCV MCH MCHC RDW Plt Count MPV Sodium Potassium Chloride Carbon Dioxide Anion Gap BUN Creatinine Estimated GFR POC Glucose 199 H Random Glucose Calcium - Impressions ITS Impressions Chest X-Ray 08/07/18 16:27 CONCLUSION: Mild cardiomegaly with mild pulmonary vascular engorgement. Abdomen/Pelvis CT 08/10/18 00:00 CONCLUSION: 1. Right greater than left pleural effusions increased in size. Diffuse superficial soft tissue edema and small amount of ascites. Findings suggest hypoalbuminemia or fluid overload. 2. Diffuse nodularity of the liver capsule again indicating cirrhosis. Oval 2.3 cm density in the right lobe of liver unchanged. 3. Nonspecific central mesenteric peripancreatic stranding opacity very similar in appearance to the prior study of February 2018 may represent inflammatory change. No organized fluid collections. 4. Extensive colonic diverticulosis. No evidence of acute diverticulitis. 5. Multiple old lumbar spine compression fracture deformities. Discharge Plan - Discharge Order Discharge Orders: Discharge Order (Routine); Ordered 08/12/18 Ordered By: Marilyn Gonzalez - Physicians Team Primary Care Provider: Ham Xavier Attending Provider: Jermaine Salazar Other Providers: Noel Sierra ; Chelly Canada MD ; Cosmo Felix MD
[2018-08-12 14:34] VITALS: BP 96/55; PULSE 102; TEMP 97.4; O2SAT 96
[2018-08-12 21:37] LABS: Alpha 1 Antitrypsin 218 mg/dL (100 - 190)
[2018-08-13 19:52] LABS: IgA Serum 314 mg/dL (81-463); Tissue Transglutaminase Ab IgG ND U/mL (())
[2018-08-14 13:53] LABS: Ceruloplasmin 29 mg/dL (18-53)
== END 2018-08-12 17:03 ==
LOC: NEDA 15:51 → NEPE 15:51 → NEPGCP 20:20 → N04 08-09 18:44
PROVIDERS: ADMIT Hospitalist; ATTEND Hospitalist
PROC: PANENDO (2018-08-11 10:58)